=== PATIENT | male | born 1990 | race Caucasian/White ===

== ENCOUNTER 2016-05-06 14:50 | Inpatient (IN) | payer OTHER ==
[~2016-05-06] VITALS: Ht 167.6 cm; Wt 79.4 kg
--- NOTE | 2016-05-06 15:04 | ED AMS/SEIZURE/WEAK/DIZZY ---
History of Present Illness General Chief Complaint: General Adult Stated Complaint: PT HAD A POSSIBLE SEIZURE, AND NEEDS DETOX Source: patient, family Exam Limitations: no limitations Vital Signs & Intake/Output Vital Signs & Intake/Output Vital Signs Date Time Temp Pulse Resp B/P Pulse O2 O2 Flow FiO2 Ox Delivery Rate 05/07 0752 98.2 70 20 130/82 94 Room Air 05/07 0006 98.5 97 20 130/94 95 05/07 0000 98.5 97 20 130/94 05/06 2000 99.0 80 18 128/100 05/06 1947 98.8 82 16 124/79 05/06 1946 98.8 82 16 124/79 98 Room Air 05/06 1853 98.8 82 18 115/60 05/06 1853 98.8 82 18 115/60 98 Room Air 05/06 1804 98.8 93 18 126/75 05/06 1804 98.8 93 18 126/75 98 Room Air 05/06 1624 98.8 88 18 133/79 05/06 1623 98.8 88 18 133/79 98 Room Air 05/06 1530 98.8 111 18 125/66 05/06 1525 98.8 111 18 125/66 98 Room Air 05/06 1500 96.5 134 20 119/75 96 Room Air ED Intake and Output 05/07 0000 05/06 1200 Intake Total 300 Output Total 250 Balance 50 Intake, IV 300 Output, Urine 250 Patient 175 lb Weight Allergies Coded Allergies: No Known Allergies (05/06/16) Reconcile Medications No Known Home Medications Triage Note: PT REQUEST DETOX FROM ETOH, LAST DRINK TODAY, DRANK ABOUT 2-3 SHOTS. PT STATES HE MAY HAVE HAD A SEIZURE EARLIER TODAY. DENIES SI/HI Triage Nurses Notes Reviewed? yes HPI: Patient is a 25 year old male presents requesting alcohol detox and reporting possible alcohol withdrawal seizure. Patient has a history of withdrawal seizures, last seizure approximately 2 weeks ago. Patient was admitted to [facility] for inpatient detox and discharged on April 25. Patient began drinking again April 27. Drinks daily, 7-8 50ml containers of Rizwan Beam daily. Patient was feeling shakey today and nauseous, had not started drinking yet when he went outside for a cigarette then his mother noticed he came inside with his pants and his arms wet. Patient does not recall falling or how he ended up inside. Patient reports 2-3 episodes of vomiting today. Tried to drink 2-3 drinks of Rizwan Beam after this to help with his symptoms. Smokes cannabis 2-3 times a week. Last used cocaine 2-3 weeks ago. Has had visual hallucinations in the past secondary to withdrawal, none currently. Denies headache, fevers, chills, suicidal ideation, illicit drug use today, hematemesis , abdominal pain. (PEDRO HAZEL) Past History Travel History Traveled to [place] past 21 day No Medical History Any Pertinent Medical History? see below for history Neurological: alcohol withdrawal seizures Psychiatric: alcohol dependence, depression Surgical History Surgical History: non-contributory Psychosocial History What is your primary language Lebanese Tobacco Use: Current Daily Use Daily Tobacco Use Amount/Type: => 5 Cigarettes daily ETOH Use: alcoholic Illicit Drug Use: cocaine, marijuana Family History Hx Contributory? No (PEDRO HAZEL) Review of Systems Review of Systems Constitutional: Denies: chills, fever. EENTM: Reports: no symptoms. Respiratory: Denies: cough, short of breath. Cardiovascular: Denies: chest pain. GI: Reports: nausea, vomiting. Denies: abdominal pain. Genitourinary: Reports: no symptoms. Musculoskeletal: Reports: no symptoms. Skin: Reports: no symptoms. Neurological/Psychological: Reports: see HPI. Denies: headache, numbness. Hematologic/Endocrine: Denies: bruising, bleeding. Immunologic/Allergic: Denies: splenectomy. (PEDRO HAZEL) Physical Exam Physical Exam General Appearance: alert, awake Head: atraumatic, normal appearance Eyes: Bilateral: PERRL, EOMI, other (positive nystagmus). Ears, Nose, Throat: normal pharynx, normal ENT inspection, hearing grossly normal, no tongue laceration Neck: normal inspection, supple, full range of motion, no midline tenderness, no paraspinal tenderness Respiratory: normal breath sounds, chest non-tender, no respiratory distress, lungs clear Cardiovascular: tachycardia (regular rhythm, no murmur) Gastrointestinal: soft, non-tender Back: normal inspection, normal range of motion, no vertebral tenderness Extremities: normal range of motion, no signs of trauma Neurologic/Psych: no motor/sensory deficits, awake, alert, cinder block mason II-XII nml as tested Skin: intact, normal color, warm/dry Lymphatic: no anterior cervical karthikeyan Core Measures ACS in differential dx? No CVA/TIA Diagnosis: No Severe Sepsis Present: No Septic Shock Present: No (YOVANI HEARD,PEDRO) Progress Differential Diagnosis: arrythmia, alcohol intoxication, CVA/stroke, drug intoxication, encephalitis, electrolyte imbalance, intracranial Hem., intracranial mass/tumor, seizure disorder, subarachnoid Hem. Plan of Care: Orders Procedure Date/time Status Clear Liquid Diet 05/07 B Active TROPONIN LEVEL 05/07 0600 Complete MAGNESIUM 05/07 0600 Complete HEPATIC FUNCTION PANEL 05/07 0600 Complete CBC WITHOUT DIFFERENTIAL 05/07 0600 Complete BASIC ELECTROLYTES PLUS BUN&CR 05/07 0600 Complete EKG 05/07 0600 Active Seizure Precautions 05/07 0346 Active Precautions 05/07 0345 Active Vital Signs 05/06 2020 Active Teach/Educate 05/06 2020 Active Nutritional Intake, Monitor 05/06 2020 Active Isolation 05/06 2020 Active Intake & Output 05/06 2020 Active Patient Care Conference 05/06 2020 Active Activity/Ambulation 05/06 2020 Active Intake & Output 05/06 1804 Active Admit to inpatient 05/06 1748 Active Lab Add-on Test 05/06 1742 Active Pathway - chart 05/06 1738 Active Pathway - chart 05/06 1737 Active House Staff 05/06 1737 Active Patient Data 05/06 1737 Active Code Status 05/06 1737 Active Telemetry/General Internist 05/06 1555 Complete PHOSPHORUS 05/06 1527 Complete LIPASE 05/06 1527 Complete AMYLASE 05/06 1527 Complete EKG 05/06 1514 Active CIWA 05/06 1513 Active URINE DRUGS OF ABUSE 05/06 1513 Complete MAGNESIUM 05/06 1513 Complete ETHANOL 05/06 1513 Complete COMPREHENSIVE METABOLIC PANEL 05/06 1513 Complete CBC WITHOUT DIFFERENTIAL 05/06 1513 Complete VTE Mechanical Prophylaxis 05/06 UNK Active Current Medications Sig/Megha Start time Last Medication Dose Stop Time Status Admin Lorazepam 2 MG Q8 05/07 1400 AC (Ativan) Folic Acid 1 MG DAILY 05/07 1000 AC (Folic Acid) Thiamine HCl 100 MG DAILY 05/07 1000 AC (Vitamin B1) Omeprazole 40 MG DAILY AC 05/07 0704 AC (Prilosec) Lorazepam 0 Q1P PRN 05/06 1900 AC (Ativan) Acetaminophen 650 MG Q6P PRN 05/06 1745 AC (Tylenol) Oxycodone HCl 10 MG Q6P PRN 05/06 1745 AC (Roxicodone) Oxycodone/ 1 TAB Q6P PRN 05/06 1745 AC Acetaminophen (Percocet) Laboratory Tests 05/07/16 0630: Anion Gap 10, Estimated GFR > 60, BUN/Creatinine Ratio 8.6, Magnesium 1.7, Total Bilirubin 1.5 H, Direct Bilirubin 0.5 H, AST 229 H, ALT 209 H, Alkaline Phosphatase 78, Troponin I < 0.01, Total Protein 6.7, Albumin 3.6, CBC w Diff NO MAN DIFF REQ, RBC 5.04, MCV 89.8, MCH 30.0, RDW 14.2, MPV 8.3, Gran % 62.7, Lymphocytes % 26.3, Monocytes % 7.8, Eosinophils % 2.8, Basophils % 0.4, Absolute Granulocytes 4.9, Absolute Lymphocytes 2.1, Absolute Monocytes 0.6, Absolute Eosinophils 0.2, Absolute Basophils 0, PUBS MCHC 33.4 05/06/16 1646: Urine Opiates Screen < 100.00, Methadone Screen < 40, Barbiturate Screen < 60, Ur Phencyclidine Scrn < 6.00, Amphetamines Screen < 100, U Benzodiazepines Scrn 141, Urine Cocaine Screen 66, Urine Cannabis Screen 16.20 05/06/16 1527: Anion Gap 17 H, Estimated GFR > 60, BUN/Creatinine Ratio 10.0, Glucose 170 H, Calcium 9.6, Phosphorus 1.8 L, Magnesium 1.7, Total Bilirubin 1.7 H, AST 212 H, ALT 223 H, Alkaline Phosphatase 97, Total Protein 7.8, Albumin 4.5, Globulin 3.3, Albumin/Globulin Ratio 1.4, Amylase 56, Lipase 228, CBC w Diff NO MAN DIFF REQ, RBC 5.65, MCV 88.4, MCH 30.1, RDW 13.9, MPV 8.1, Gran % 77.5 H, Lymphocytes % 15.8 L, Monocytes % 5.3, Eosinophils % 1.0, Basophils % 0.4, Absolute Granulocytes 9.0 H, Absolute Lymphocytes 1.8, Absolute Monocytes 0.6, Absolute Eosinophils 0.1, Absolute Basophils 0, PUBS MCHC 34.1, Serum Alcohol 16.0 05/06/2016 3:53:29 PM: Discussed with and evaluated by Dr. Pepper. Heart rate improved to 70s and sinus rhythm after 2 mg by mouth and 2 mg IV of Ativan. Patient resting comfortably. 05/06/2016 4:51:21 PM: Patient resting more comfortably. Heart rate intermittently increasing to the 110s in sinus rhythm. Additional Ativan ordered. Patient ambulatory to the bathroom with no neurologic deficits noted. Hospitalist paged. 05/06/2016 4:57:28 PM: Discussed with Dr. Liriano: will admit patient. (PEDRO HAZEL) Initial ED EKG: sinus rhythm at 96 bpm Left axis deviation, T-wave flattening diffusely, no previous EKG for comparison Rhythm Strip: normal sinus rhythm (PEDRO HAZEL) Departure Departure Time of Disposition: 1656 Condition: Stable Departure Forms: Customer Survey General Discharge Information Prescriptions: Current Visit Scripts No Known Home Medications Admission Note Spoke With: VINI LIRIANO MD Documentation of Exam: Documentation of any treatments & extenuating circumstances including Concerns Regarding Discharge (functional status, medication knowledge or non-compliance, living conditions, etc.) that warrant an admission rather than observation: Patient had what appears to be an alcohol withdrawal seizure today, is at severe risk for further seizures and delirium tremens. Patient will require monitoring , Ativan, social work and psychiatry consultation. (PEDRO HAZEL) Departure Disposition: STILL A PATIENT Clinical Impression Primary Impression: Alcohol withdrawal seizure Secondary Impressions: Alcohol dependence with withdrawal PA/ENVIRONMENTAL PROTECTION SPECIALIST Co-Sign Statement Statement: ED Attending supervision documentation- [X] I saw and evaluated the patient. I have also reviewed all the pertinent lab results and diagnostic results. I agree with the findings and the plan of care as documented in the PA's/ENVIRONMENTAL PROTECTION SPECIALIST's documentation. [X] I have reviewed the ED Record and agree with the PA's/ENVIRONMENTAL PROTECTION SPECIALIST's documentation. [] Additions or exceptions (if any) to the PAs/ENVIRONMENTAL PROTECTION SPECIALIST's note and plan are summarized below: [] (SANTA VIVEROS,CATHLEEN) Critical Care Note Critical Care Note Critical Care Time: 30-74 min (PEDRO HAZEL)
[2016-05-06 15:30] VITALS: BP 125/66
[2016-05-06 15:36] LABS: ABSOLUTE BASOPHIL COUNT 0 /CUMM (0.0-0.2); ABSOLUTE EOSINOPHIL COUNT 0.1 /CUMM (0.0-0.7); ABSOLUTE LYMPH COUNT 1.8 /CUMM (1.2-3.4); ABSOLUTE MONOCYTE COUNT 0.6 /CUMM (0.10-0.60); BASOPHIL % 0.4 % (0.0-2.0); GRANULOCYTE % 77.5 % (42.2-75.2); MEAN CORPUSCULAR HGB 30.1 PG (27.0-31.0); MEAN CORPUSCULAR HGB CONC 34.1 G/DL (33.0-37.0); MEAN CORPUSCULAR VOLUME 88.4 FL (80.0-94.0); MEAN PLATELET VOLUME 8.1 FL (7.4-10.4); PLATELET COUNT 223 /CUMM (130-400); RBC DISTRIBUTION WIDTH 13.9 % (11.5-14.5); RED BLOOD CELL CT 5.65 /CUMM (4.70-6.10); WHITE BLOOD CELL COUNT 11.6 /CUMM (4.8-10.8)
[2016-05-06 16:24] VITALS: BP 133/79
--- NOTE | 2016-05-06 17:13 | History & Physical ---
AMBER VIVEROS,LISA 05/06/16 1713: General Information and HPI MD Statement: I have seen and personally examined MADAY PIÑA and documented this H& P. The patient is a 25 year old M who presented with a patient stated chief complaint of [alcohol withdrawal seizure]. Source of Information: patient, family Exam Limitations: no limitations History of Present Illness: Patient is a 25-year-old male with a PMH significant for a recent episode of alcohol withdrawal seizure, who is brought to the ED by his parents with a suspicion for another episode of seizure due to alcohol withdrawal. His mother found him outside their house this morning looking yeager, disoriented, wet in the pants, a few minutes after he had gone outside to smoke cigarette. It took him 5 -10 minutes to regain consciousness. Patient himself does not completely remember the events but reports seeing flashes of light and that he fell down on his knees. Denies head trauma or any headache, reported dizziness at that time that is currently resolved. Denies hallucinations. Patient had come to spend the night with his parents stating that 'he wants to get better' as the father said. Patient has been drinking 6-8 bottles of 50 mL Rizwan Beam daily for about 13-14 months. 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 On April 18 patient was found on the ground by his boss and was taken to [facility], he spent 5-6 days for alcohol detox, however started back on drinking around 6 days after discharge. 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 About a week ago patient was found at work in an unusual state with slurred speech, shaking, with fluttering eyes. His mother reports patient had similar symptoms today. Patient also reports nausea, vomiting, with an episode of possible blood in the vomit. He has also been having diarrhea (watery stool), nonbloody, almost all the time. Denies abdominal pain. Reports dark urine recently with frequency. Denies chest pain or palpitation or SOB. Allergies/Medications Allergies: Coded Allergies: No Known Allergies (05/06/16) Home Med list No Known Home Medications Past History Travel History Traveled to [place] past 21 day No Medical History Neurological: alcohol withdrawal seizures EENT: NONE Cardiovascular: NONE Respiratory: NONE Gastrointestinal: NONE Hepatic: NONE Renal: NONE Musculoskeletal: NONE Psychiatric: alcohol dependence, depression, ADD at 20 years of age, currently not on treatment. Endocrine: NONE Surgical History Surgical History: non-contributory Past Family/Social History Psychosocial History Smoking Status: Current Everyday Smoker (1/4 to 1 pack/d for 10 years) ETOH Use: alcoholic Illicit Drug Use: cocaine, marijuana Functional Ability ADLs Independent: dressing, eating, toileting, bathing. Ambulation: independent IADLs Independent: shopping, housework, finances, food prep, telephone, transportation , medication admin. Review of Systems Review of Systems Constitutional: Denies: chills, fever, weakness. EENTM: Reports: nasal congestion. Denies: blurred vision, hearing changes, throat pain. Cardiovascular: Denies: chest pain, palpitations, peripheral edema, syncope. Respiratory: Denies: cough, sputum production, stridor, wheezing. GI: Reports: diarrhea, nausea, vomiting. Denies: abdominal pain, constipation, melena, bloody stool, changes in stool. Genitourinary: Reports: frequency. Denies: discharge, dysuria, hematuria. Musculoskeletal: Reports: no symptoms. Skin: Reports: lesions ( chuck on left lower back). Neurological/Psychological: Denies: anxiety, ataxia, headache, numbness, paresthesia, tingling, tremors, weakness. Hematologic/Endocrine: Denies: bruising, bleeding, polyuria, polydipsia. Exam & Diagnostic Data Last 24 Hrs of Vital Signs/I&O Vital Signs Date Time Temp Pulse Resp B/P Pulse O2 O2 Flow FiO2 Ox Delivery Rate 05/06 1804 98.8 93 18 126/75 05/06 1804 98.8 93 18 126/75 98 Room Air 05/06 1624 98.8 88 18 133/79 05/06 1623 98.8 88 18 133/79 98 Room Air 05/06 1530 98.8 111 18 125/66 05/06 1525 98.8 111 18 125/66 98 Room Air 05/06 1500 96.5 134 20 119/75 96 Room Air Intake & Output 05/06 1600 05/06 0800 05/06 0000 Intake Total Output Total Balance Patient 79.379 kg Weight Physical Exam General Appearance Alert, Oriented X3, Cooperative, No Acute Distress Skin pigmented skin lesions noted on the left lower back, not changed in size, asymptomatic. HEENT Atraumatic, PERRLA, EOMI, Mucous Membr. moist/pink Neck Supple Cardiovascular Regular Rate, Normal S1, Normal S2, No Murmurs Lungs Clear to Auscultation, Normal Air Movement Abdomen Normal Bowel Sounds, Soft, No Tenderness, No Hepatospenomegaly Neurological Normal Speech, Strength at 5/5 X4 Ext, Normal Tone, Sensation Intact, Cranial Nerves 3-12 NL Extremities No Clubbing, No Cyanosis, No Edema, Normal Pulses, No Tenderness/ Swelling Vascular Normal Pulses, Pulses Symmetrical Last 24 Hrs of Labs/Nikos: Laboratory Tests 05/06/16 1646: Urine Opiates Screen < 100.00, Methadone Screen < 40, Barbiturate Screen < 60, Ur Phencyclidine Scrn < 6.00, Amphetamines Screen < 100, U Benzodiazepines Scrn 141, Urine Cocaine Screen 66, Urine Cannabis Screen 16.20 05/06/16 1527: Anion Gap 17 H, Estimated GFR > 60, BUN/Creatinine Ratio 10.0, Glucose 170 H, Calcium 9.6, Phosphorus 1.8 L, Magnesium 1.7, Total Bilirubin 1.7 H, AST 212 H, ALT 223 H, Alkaline Phosphatase 97, Total Protein 7.8, Albumin 4.5, Globulin 3.3, Albumin/Globulin Ratio 1.4, Amylase 56, Lipase 228, CBC w Diff NO MAN DIFF REQ, RBC 5.65, MCV 88.4, MCH 30.1, RDW 13.9, MPV 8.1, Gran % 77.5 H, Lymphocytes % 15.8 L, Monocytes % 5.3, Eosinophils % 1.0, Basophils % 0.4, Absolute Granulocytes 9.0 H, Absolute Lymphocytes 1.8, Absolute Monocytes 0.6, Absolute Eosinophils 0.1, Absolute Basophils 0, PUBS MCHC 34.1, Serum Alcohol 16.0 Assessment/Plan Assessment: Patient is a 25 year old male with PMH of alcohol abuse and alcohol withdrawal seizures, brought in by his parents after an episode of a seizure-like activity, requesting alcohol detox and also asking to help him quit alcohol abuse. Vital signs in the ED revealed tachycardia with heart rate of 134 on arrival, which came down to 90s on admission. EKG revealed normal sinus rhythm, rate of 96, NC 156, QTC 460, there is flattening of the T-wave on V1, T-wave inversion on V3 and V4, no ST segment elevation or depression. Patient received IV fluids, IV folic acid, thiamine and multivitamins, lorazepam in the ED. Problem list and plan: Alcohol withdrawal and alcohol withdrawal possible seizure Patient is alert and oriented, neurology exam is unremarkable. He has mild tremor during the exam with no asterixis. * IV Ativan per CIWA * Continue IV fluids * Continue IV folic acid thiamine and multivitamins * Psychiatric consult in a.m. * Repeat CBC and BEP in a.m. Pain * PO Tylenol for mild pain, Percocet for moderate pain, oxycodone for severe pain. Regular diet DVT px with SC lovenox FC As Ranked By This Provider Problem List: 1. Alcohol withdrawal seizure 2. Alcohol dependence with withdrawal Core Measures/Miscellaneous Acute Coronary Syndrome ACS Diagnosis: No Cerebrovascular Accident CVA/TIA Diagnosis: No Congestive Heart Failure CHF Diagnosis: No Venous Thromboembolism VTE Risk Factors: Acute medical illness, Obesity VTE Prophylaxis Ordered Inpt: Pharm- Lovenox No Mech VTE prophylaxis d/t: No contraindications No VTE Pharm Prophylaxis d/t: No contraindications VTE Diagnosis: No VTE Type: NONE VTE Confirmed by (Test): NONE Severe Sepsis Severe Sepsis Present: Yes Septic Shock Septic Shock Present: Yes Miscellaneous Documentation Attending Case Discussed With: VINI LIRIANO MD Primary Care Physician: PATIENT HAS NO PRIMARY CARE DR Patient sees these Specialists None Level of Patient Care: General Medicine HANSAMANUELDarrenFRANCISCO 05/06/16 1811: Resident Review Statement Resident Statement: examined this patient, discussed with internet and e business project manager, agreed with internet and e business project manager, discussed with family, reviewed EMR data (avail), discussed with case mgmt, reviewed images Other Findings: Mr. Piña is a pleasant 25-year-old gentleman with a PMH of EtOH abuse for multiple years, occasional marijuana and cocaine who was brought in by family for detox. He was seen at [facility] approximately 2 weeks ago and admitted for 5 day duration for cold detox, discharged home but unfortunately relapsed on April 27 and has since continued drinking 7-8 bottles of 50 mL Rizwan Beam daily he also endorses intermittent cocaine use was recently 3 weeks ago, regular marijuana use 2-3 times a week. His parents report an episode of confusion prior to coming into the ER when he walked outside to smoke a cigarette and was alert and noted to have fallen down and possibly wet his pants. He exhibited an episode of transient confusion/ delirium prompted them to bring him into the ED for evaluation. He denied any visual, auditory or tactile hallucinations but was unsure as to whether he had a seizure. VS: BP 119/75, HR 134, RR 20, SPO2 96% on RA, T 96.5 PE: AAO 3, no acute distress. Lungs CTA BL. RRR, normal S1/S2. Normal bowel sounds with no tenderness to palpation. No focal neurologic deficits. Pertinent labs: WBC 11.6, H&H 17/50.0, platelets 223, sodium 135, potassium 3.6, BUN/CR 8/0.8 Phosphorus: 1.8 AST/ALT 212/223 Lipase 228, amylase 56 Problem list: 1. Alcohol withdrawal with possible seizure 2. Cocaine abuse 3. Hypophosphatemia 4. Hypokalemia 5. Transaminitis Plan: * Admit to general medicine floor * Ativan per [facility] protocol, thiamine and folic acid * Neurochecks every shift, seizure precautions * Clear liquid diet and advance as tolerated * GI prophylaxis: Omeprazole 40 mg daily * Nicotine patch tobacco dependence * Repleted phosphate and follow-up in the a.m. * DVT prophylaxis: Lovenox 40 mg subcutaneous * CODE STATUS: Full code AM team: Please obtain previous EEG records from [facility] Advance diet as tolerated SARAH SOSA 05/06/16 2354: Attending MD Review Statement Attending Statement Attending MD Statement: examined this patient, discuss w/resident/PA/MUFFLER INSTALLER, agreed w/resident/PA/MUFFLER INSTALLER, discussed with family, reviewed EMR data (avail), reviewed images, amended to note Attending Assessment/Plan: CC: Seizure PMH : Alcoholism , substance abuse Patient came to ER with parents requesting alcohol detox. They also report unwitnessed possible seizure. Patient has history of withdrawal seizures, last seizure approximately 2 weeks ago, admitted and [facility] for detox, investigated with EEG CT scan, discharged on April 25. Patient started drinking on April 27 again. He Drinks daily, 7-8 50ml containers of Rizwan Beam daily. Complaints of feeling shakey today and nauseous. He tried one drink in the morning for symptom relief. He went outside to smoke and came back confused with elbows and knees drenched. So mother thinks that he may have had seizures, his eyes flickered for some time when he was confuse. Patient does not recall a the incidence. He Smokes cannabis 2-3 times a week And Last used cocaine 2-3 weeks ago. Otherwise complete ROS negative Vitals: Afebrile, mildly tachycardic at presentation currently stable, RRR, blood pressure, O2 saturation in acceptable range. On examination a O 3, no anxiety, no tremors, no focal neurological deficit, no evidence of tongue bite, neck supple, no JVD, no lymphadenopathy, mucosa moist, no obvious bruises or inflammation. Abdomen soft, NT, ND, bowel sounds present. CVS: S1-S2, RRR. RS: Clear to auscultate bilaterally. Labs: CB C, BMP, anion gap 17, unremarkable, glucose 170, phosphorus 1.8, bilirubin 1.7, AST 212, ALT 223, dopamine 4.5, lipase 224, U tox positive for benzodiazepines and cocaine marijuana alcohol level 16 EKG: NSR A and P #1 alcoholism: Continue banana bag, when necessary and scheduled Ativan according to CIWA score. Consult regarding cessation. Family wants to send him inpatient rehabilitation, they're looking and options. #2 unwitnessed suspected seizure: Patient underwent EEG monitoring in [facility], please obtain records, if not impossible then obtain EEG, most likely alcohol related seizure does not require treatment at this point. Seizure precautions, clear liquid diet #3 transaminitis: Even though AST is not higher than ALT, appears to be alcohol related, mild elevation bilirubin, repeat LFTs in a.m. #4 patient had history of cocaine : U tox is positive, repeat troponin and EKG in 6 hours.
[2016-05-06 18:04] VITALS: BP 126/75
[2016-05-06 18:53] VITALS: BP 115/60
[2016-05-06 19:47] VITALS: BP 124/79
[2016-05-06 20:00] VITALS: BP 128/100
--- NOTE | 2016-05-06 23:56 | Admission Certification ---
Admission Certification Certification Statement - As attending physician, I certify that at the time of - admission, based on clinical presentation, severity of - symptoms, need for further diagnostic testing and - therapeutic interventions, and risk of adverse outcomes - without in-hospital treatment, in my clinical assessment, - this patient requires an acute hospital stay for a minimum - of two nights or longer. I have also considered psychsocial - factors such as support system, advanced age, financial - issues, cognitive issues, and failed out-patient treatments, - past re-admission history, safety of patient, and lack of - compliance as applicable. Specific rationale supporting this admission is: Alcoholism, alcohol related seizures
[2016-05-07] VITALS: BP 130/94
[2016-05-07 00:06] VITALS: BP 130/94
[2016-05-07 07:52] VITALS: BP 130/82
--- NOTE | 2016-05-07 07:54 | PN- Housestaff ---
AMBER VIVEROS,[facility] 05/07/16 0754: Subjective Follow-up For: alcohol withdrawal Subjective: Patient is alert and awake, in no distress, reports no pain, dizziness, SOB, chest pain, abdominal pain or palpitations. Review of Systems Constitutional: Denies: chills, fever, malaise, weakness. EENTM: Reports: no symptoms. Cardiovascular: Reports: no symptoms. Respiratory: Reports: no symptoms. Gastrointestinal: Reports: no symptoms. Genitourinary: Reports: no symptoms. Musculoskeletal: Reports: no symptoms. Skin: Reports: no symptoms. Objective Last 24 Hrs of Vital Signs/I&O Vital Signs Date Time Temp Pulse Resp B/P Pulse O2 O2 Flow FiO2 Ox Delivery Rate 05/07 1600 97.8 97 18 124/80 05/07 0752 98.2 70 20 130/82 94 Room Air 05/07 0006 98.5 97 20 130/94 95 05/07 0000 98.5 97 20 130/94 05/06 2000 99.0 80 18 128/100 05/06 1947 98.8 82 16 124/79 05/06 1946 98.8 82 16 124/79 98 Room Air 05/06 1853 98.8 82 18 115/60 05/06 1853 98.8 82 18 115/60 98 Room Air 05/06 1804 98.8 93 18 126/75 05/06 1804 98.8 93 18 126/75 98 Room Air Intake & Output 05/07 1600 05/07 0800 05/07 0000 Intake Total 1600 250 300 Output Total 1200 250 Balance 400 250 50 Intake, IV 250 300 Intake, Oral 1600 Output, Urine 1200 250 Patient 79.379 kg Weight Physical Exam General Appearance: Alert, Oriented X3, Cooperative, No Acute Distress Skin: No Rashes HEENT: Atraumatic, EOMI Neck: Supple Cardiovascular: Regular Rate, Normal S1, Normal S2, No Murmurs Lungs: Clear to Auscultation, Normal Air Movement Abdomen: Normal Bowel Sounds, Soft, No Tenderness Extremities: No Clubbing, No Cyanosis, No Edema Vascular: Pulses Symmetrical Last 24 Hrs of Lab/Nikos Results Last 24 Hrs of Labs/Mics: Laboratory Tests 05/07/16 0630: Anion Gap 10, Estimated GFR > 60, BUN/Creatinine Ratio 8.6, Phosphorus 5.0 H, Magnesium 1.7, Total Bilirubin 1.5 H, Direct Bilirubin 0.5 H, AST 229 H, ALT 209 H, Alkaline Phosphatase 78, Troponin I < 0.01, Total Protein 6.7, Albumin 3.6, CBC w Diff NO MAN DIFF REQ, RBC 5.04, MCV 89.8, MCH 30.0, RDW 14.2, MPV 8.3 , Gran % 62.7, Lymphocytes % 26.3, Monocytes % 7.8, Eosinophils % 2.8, Basophils % 0.4, Absolute Granulocytes 4.9, Absolute Lymphocytes 2.1, Absolute Monocytes 0.6, Absolute Eosinophils 0.2, Absolute Basophils 0, PUBS MCHC 33.4 Assessment/Plan Assessment: Patient is a 25 year old male with PMH of alcohol abuse and alcohol withdrawal seizures, brought in by his parents after an episode of a seizure-like activity, requesting alcohol detox and also asking to help him quit alcohol abuse. Vital signs in the ED revealed tachycardia with heart rate of 134 on arrival, which came down to 90s on admission. EKG revealed normal sinus rhythm, rate of 96, AR 156, QTC 460, there is flattening of the T-wave on V1, T-wave inversion on V3 and V4, no ST segment elevation or depression. Patient received IV fluids, IV folic acid, thiamine and multivitamins, lorazepam in the ED. Problem list and plan: Alcohol withdrawal and alcohol withdrawal possible seizure Patient is alert and oriented, neurology exam is unremarkable. He has mild tremor during the exam with no asterixis. * continue PO Ativan per CIWA * DC IV fluids * Continue IV folic acid thiamine and multivitamins * social work consult on Monday * Repeat CBC and BEP in a.m. * will obtain records of previous admission from [facility] Pain * PO Tylenol for mild pain, Percocet for moderate pain, oxycodone for severe pain. Regular diet DVT px with SC lovenox FC Problem List: 1. Alcohol withdrawal seizure 2. Alcohol dependence with withdrawal Pain Ratin Pain Location: none Pain Goal: Pain 4 or less Pain Plan: mild pp Tomorrow's Labs & Rationales: cbc, BEP, hepatic panel (leukocytosis, monitor electrolytes, transaminitis) CYNTHIA MARRUFO MD 05/07/16 1006: Attending MD Review Statement Attending Statement Attending MD Statement: examined this patient, discuss w/resident/PA/LEVI MAKER, agreed w/resident/PA/LEVI MAKER, reviewed EMR data (avail), discussed with nursing, discussed with case mgmt, amended to note Attending Assessment/Plan: Patient seen and examined. Resting comfortably and not in acute distress. No issues overnight reported by nursing staff. His electrolytes 3. He is not agitated. He is actually quite pleasant. He has no tremors. On examination he has no significant alcohol disease. He denies chest pain. Denies palpitations. Denies shortness of breath. His CIWA has not been elevated since admission. His alcohol level was low on admission. He was brought in for evaluation due to concerns that he had a seizure Recommendations: -Continue current CIWA protocol today. If patient does not require when necessary dose of Ativan then taper his standing dose of Ativan by 0.5 mg per dose. -Continue seizure precautions. Obtain EEG report from [facility]. -His transaminitis is likely related to EtOH. Follow-up records from [facility] regarding his baseline LFTs and any liver imaging done at that time. -networker consultation on Monday for referral to outpatient alcohol rehabilitation
[2016-05-07 08:25] LABS: ABSOLUTE BASOPHIL COUNT 0 /CUMM (0.0-0.2); ABSOLUTE EOSINOPHIL COUNT 0.2 /CUMM (0.0-0.7); ABSOLUTE LYMPH COUNT 2.1 /CUMM (1.2-3.4); ABSOLUTE MONOCYTE COUNT 0.6 /CUMM (0.10-0.60); GRANULOCYTE % 62.7 % (42.2-75.2); MEAN PLATELET VOLUME 8.3 FL (7.4-10.4); RBC DISTRIBUTION WIDTH 14.2 % (11.5-14.5)
[2016-05-07 09:15] LABS: ABSOLUTE GRANULOCYTE CT 4.9 /CUMM (1.4-6.5); BASOPHIL % 0.4 % (0.0-2.0); EOSINOPHIL % 2.8 % (0-5); HEMATOCRIT 45.3 % (42-52); MEAN CORPUSCULAR HGB CONC 33.4 G/DL (33.0-37.0); MEAN CORPUSCULAR VOLUME 89.8 FL (80.0-94.0); PLATELET COUNT 161 /CUMM (130-400); RED BLOOD CELL CT 5.04 /CUMM (4.70-6.10); WHITE BLOOD CELL COUNT 7.8 /CUMM (4.8-10.8)
[2016-05-07 16:00] VITALS: BP 124/80
[2016-05-07 23:54] VITALS: BP 156/112
[2016-05-08 00:02] VITALS: BP 135/110
[2016-05-08 01:17] VITALS: BP 150/110
[2016-05-08 03:10] VITALS: BP 138/80
[2016-05-08 08:41] LABS: ABSOLUTE BASOPHIL COUNT 0.1 /CUMM (0.0-0.2); ABSOLUTE EOSINOPHIL COUNT 0.3 /CUMM (0.0-0.7); ABSOLUTE GRANULOCYTE CT 5.3 /CUMM (1.4-6.5); ABSOLUTE LYMPH COUNT 2.7 /CUMM (1.2-3.4); ABSOLUTE MONOCYTE COUNT 0.7 /CUMM (0.10-0.60); BASOPHIL % 0.6 % (0.0-2.0); EOSINOPHIL % 3.1 % (0-5); GRANULOCYTE % 59.2 % (42.2-75.2); HEMATOCRIT 48.8 % (42-52); MEAN CORPUSCULAR HGB 29.7 PG (27.0-31.0); MEAN CORPUSCULAR HGB CONC 32.8 G/DL (33.0-37.0); MEAN CORPUSCULAR VOLUME 90.6 FL (80.0-94.0); MEAN PLATELET VOLUME 8.5 FL (7.4-10.4); PLATELET COUNT 169 /CUMM (130-400); RBC DISTRIBUTION WIDTH 14.3 % (11.5-14.5); RED BLOOD CELL CT 5.39 /CUMM (4.70-6.10)
[2016-05-08 09:15] VITALS: BP 130/82
--- NOTE | 2016-05-08 09:38 | PN- Housestaff ---
CHUCK VIVEROS,[facility] 05/08/16 0938: Subjective Follow-up For: Alcohol detox Subjective: Patient is seen and examined at bedside. Patient was in deep sleep but was easily awoken by verbal stimuli. Patient states "I am feeling very well". He does not endorse any acute complaints of nightmares, weird dreams, hallucination , tremors, shakiness, nausea, vomiting, fever, chills abdominal pain, chest pain , palpitation or abdominal pain. No acute overnight event reported by nursing staff. Review of Systems Constitutional: Reports: no symptoms. Objective Last 24 Hrs of Vital Signs/I&O Vital Signs Date Time Temp Pulse Resp B/P Pulse O2 O2 Flow FiO2 Ox Delivery Rate 05/08 1649 97.8 90 21 152/94 97 Room Air 05/08 0915 97.6 80 20 130/82 97 Room Air 05/08 0310 138/80 05/08 0117 86 150/110 05/08 0002 98.0 89 20 135/110 Intake & Output 05/08 1600 05/08 0800 05/08 0000 Intake Total 3362 602 8971 Output Total 500 Balance 563 978 9555 Intake, IV 20 Intake, Oral 7512 161 2554 Output, Urine 500 Physical Exam General Appearance: Alert, Oriented X3, Cooperative, obese Skin: No Significant Lesion Other Physical Findings: Skin: No Rashes HEENT: Atraumatic, EOMI Neck: Supple Cardiovascular: Regular Rate, Normal S1, Normal S2, No Murmurs Lungs: Clear to Auscultation, Normal Air Movement Abdomen: Normal Bowel Sounds, Soft, No Tenderness Extremities: No Clubbing, No Cyanosis, No Edema Vascular: Pulses Symmetrical Assessment/Plan Assessment: Patient is a 25 year old male with PMH of alcohol abuse and alcohol withdrawal seizures, brought in by his parents after an episode of a seizure-like activity, requesting alcohol detox and also asking to help him quit alcohol abuse. Vital signs in the ED revealed tachycardia with heart rate of 134 on arrival, which came down to 90s on admission. EKG revealed normal sinus rhythm, rate of 96, MS 156, QTC 460, there is flattening of the T-wave on V1, T-wave inversion on V3 and V4, no ST segment elevation or depression. Patient received IV fluids, IV folic acid, thiamine and multivitamins, lorazepam in the ED. Problem list and plan: Alcohol withdrawal and alcohol withdrawal possible seizure Patient is alert and oriented, neurology exam is unremarkable. He has mild tremor during the exam with no asterixis. * continue PO Ativan per CIWA taper lorazepam to 1.5 mg every 8 hours * DC IV fluids * Continue IV folic acid thiamine and multivitamins * social work consult on Monday * Repeat CBC and BEP in a.m. * will obtain records of previous admission from [facility] Pain * PO Tylenol for mild pain, Percocet for moderate pain, oxycodone for severe pain. Regular diet DVT px with SC lovenox FC Problem List: 1. Alcohol dependence with withdrawal 2. Alcohol withdrawal seizure Pain Ratin Pain Location: None Pain Goal: Remain pain free Pain Plan: Per pain pathway Tomorrow's Labs & Rationales: BEP-recent seizure episode, monitor electrolytes YARON VIVEROS,CYNTHIA 05/08/16 1112: Attending MD Review Statement Attending Statement Attending MD Statement: examined this patient, discuss w/resident/PA/MOLDER SHOULDER PAD, agreed w/resident/PA/MOLDER SHOULDER PAD, reviewed EMR data (avail), discussed with nursing, amended to note Attending Assessment/Plan: Patient seen and examined. Resting comfortably and not in acute distress. Alert and oriented 3. Ambulating freely around the unit. Reports good appetite. Very jovial spirits this morning. He did not require any when necessary Ativan all through yesterday however around midnight and 3 AM he received a total of 2 mg. On examination he is not tremulous. He is not agitated. At this point we can taper his standing dose of Ativan to 1.5 mg orally every 8 hours. Follow-up records from [facility] regarding workup for his hepatitis and liver imaging as he was admitted there recently.
[2016-05-08 16:49] VITALS: BP 152/94
[2016-05-09] VITALS (8 sets, daily range): BP systolic 128–140; BP diastolic 68–100
--- NOTE | 2016-05-09 07:07 | PN- Housestaff ---
See Addendum Subjective Follow-up For: Alcohol detox Subjective: I saw and examined the patient this AM, he is in bed, sitting, eating breakfast, has no complaints. No N/V or abdominal pain, has been sleeping well. Patient is willing to talk to a social work msw for options on outpatient rehab. Review of Systems Constitutional: Denies: chills, fever, weakness. EENTM: Reports: no symptoms. Cardiovascular: Reports: no symptoms. Respiratory: Reports: no symptoms. Gastrointestinal: Reports: no symptoms. Genitourinary: Reports: no symptoms. Musculoskeletal: Reports: no symptoms. Objective Last 24 Hrs of Vital Signs/I&O Vital Signs Date Time Temp Pulse Resp B/P Pulse O2 O2 Flow FiO2 Ox Delivery Rate 05/09 0851 97.4 70 20 130/70 97 Room Air 05/09 0022 98.6 88 20 140/100 96 05/08 1649 97.8 90 21 152/94 97 Room Air Intake & Output 05/09 1600 05/09 0800 05/09 0000 Intake Total 240 500 Output Total Balance 240 500 Intake, Oral 240 500 Physical Exam General Appearance: Alert, Oriented X3, Cooperative, No Acute Distress Skin: No Rashes, No Breakdown, No Significant Lesion HEENT: Atraumatic, EOMI Neck: Supple Cardiovascular: Regular Rate, Normal S1, Normal S2, No Murmurs Lungs: Clear to Auscultation, Normal Air Movement Abdomen: Normal Bowel Sounds, Soft, No Tenderness Neurological: Normal Speech, Normal Tone Extremities: No Edema, Normal Pulses, No Tenderness/Swelling Vascular: Normal Pulses, Pulses Symmetrical Current Medications: Current Medications Sig/Megha Start time Last Medication Dose Route Stop Time Status Admin Acetaminophen 650 MG Q6P PRN 05/06 1745 AC PO Enoxaparin Sodium 40 MG DAILY@1800 05/06 1827 AC 05/08 SC 1720 Folic Acid 1 MG DAILY 05/07 1000 AC 05/09 PO 0952 Lorazepam 1 MG Q12 05/09 1000 AC 05/09 PO 0957 Lorazepam 0.5 MG .STK-MED ONE 05/08 1410 DC PO 05/08 1411 Lorazepam 1.5 MG Q8 05/08 1400 DC 05/09 PO 0600 Lorazepam 2 MG Q8 05/07 1400 DC 05/08 PO 0620 Lorazepam 0 Q1P PRN 05/06 1900 AC 05/08 IV 0317 Nicotine 21 MG DAILY 05/06 1952 05/09 TOP 0951 Omeprazole 40 MG DAILY 05/07 0704 05/09 PO 0559 Oxycodone HCl 10 MG Q6P PRN 05/06 1745 AC PO Oxycodone/ 1 TAB Q6P PRN 05/06 1745 AC Acetaminophen PO Patient Medication 1 UNIT ONE NR 05/09 1000 Teaching ED 05/09 1600 Thiamine HCl 100 MG DAILY 05/07 1000 AC 05/09 PO 0952 Last 24 Hrs of Lab/Nikos Results Last 24 Hrs of Labs/Mics: Laboratory Tests 05/09/16 0705: Anion Gap 10, Estimated GFR > 60, BUN/Creatinine Ratio 12.5, Total Bilirubin 0.9 , Direct Bilirubin 0.4, AST 231 H, ALT 274 H, Alkaline Phosphatase 72, Total Protein 6.9, Albumin 3.8, CBC w Diff NO MAN DIFF REQ, RBC 5.28, MCV 89.7, MCH 30.2, RDW 14.8 H, MPV 8.3, Gran % 64.8, Lymphocytes % 23.3, Monocytes % 9.0, Eosinophils % 2.4, Basophils % 0.5, Absolute Granulocytes 6.5, Absolute Lymphocytes 2.3, Absolute Monocytes 0.9 H, Absolute Eosinophils 0.2, Absolute Basophils 0, PUBS MCHC 33.7 Assessment/Plan Assessment: Patient is a 25 year old male with PMH of alcohol abuse and alcohol withdrawal seizures, brought in by his parents after an episode of a seizure-like activity, requesting alcohol detox and also asking to help him quit alcohol abuse. Vital signs in the ED revealed tachycardia with heart rate of 134 on arrival, which came down to 90s on admission. EKG revealed normal sinus rhythm, rate of 96, PA 156, QTC 460, there is flattening of the T-wave on V1, T-wave inversion on V3 and V4, no ST segment elevation or depression. Patient received IV fluids, IV folic acid, thiamine and multivitamins, lorazepam in the ED. Problem list and plan: Alcohol withdrawal and alcohol withdrawal possible seizure Patient is alert and oriented, neurology exam is unremarkable. He has mild tremor during the exam with no asterixis. * continue PO Ativan per CIWA taper lorazepam decreased to 1 mg every 12 hours * DC'd IV fluids * Continue PO folic acid thiamine and multivitamins * social work consult * Repeat LFT in a.m. * will try again to obtain records of previous admission from [facility] Pain * PO Tylenol for mild pain, Percocet for moderate pain, oxycodone for severe pain. Regular diet DVT px with SC lovenox FC Problem List: 1. Alcohol withdrawal seizure 2. Alcohol dependence with withdrawal Pain Ratin Pain Location: no pain Pain Goal: Pain 4 or less Pain Plan: acetaminophen for mild to moderate pain oxycodone for severe pain Tomorrow's Labs & Rationales: LFT (transaminitis)
[2016-05-09 08:28] LABS: ABSOLUTE BASOPHIL COUNT 0 /CUMM (0.0-0.2); ABSOLUTE EOSINOPHIL COUNT 0.2 /CUMM (0.0-0.7); ABSOLUTE GRANULOCYTE CT 6.5 /CUMM (1.4-6.5); ABSOLUTE LYMPH COUNT 2.3 /CUMM (1.2-3.4); ABSOLUTE MONOCYTE COUNT 0.9 /CUMM (0.10-0.60); BASOPHIL % 0.5 % (0.0-2.0); EOSINOPHIL % 2.4 % (0-5); GRANULOCYTE % 64.8 % (42.2-75.2); HEMATOCRIT 47.4 % (42-52); MEAN CORPUSCULAR HGB 30.2 PG (27.0-31.0); MEAN CORPUSCULAR HGB CONC 33.7 G/DL (33.0-37.0); MEAN CORPUSCULAR VOLUME 89.7 FL (80.0-94.0); MEAN PLATELET VOLUME 8.3 FL (7.4-10.4); PLATELET COUNT 186 /CUMM (130-400); RBC DISTRIBUTION WIDTH 14.8 % (11.5-14.5); RED BLOOD CELL CT 5.28 /CUMM (4.70-6.10); WHITE BLOOD CELL COUNT 10.1 /CUMM (4.8-10.8)
[2016-05-10] VITALS: BP 130/90
[2016-05-10 01:16] VITALS: BP 129/99
--- NOTE | 2016-05-10 06:45 | Patient Discharge Instructions ---
Discharge Instructions General Discharge Information You were seen/treated for: Alcohol withdrawal Possible withdrawal seizure. Special Instructions: Please follow-up with your primary care doctor within 1 week after discharge. Please follow-up with the scheduled detox program as instructed. Diet Continue normal diet: Yes Activity Full Activity/No Limits: Yes Acute Coronary Syndrome Inclusion Criteria At DC or during hospital stay patient has or had the following: ACS DIAGNOSIS No Discharge Core Measures Meds if any: Prescribed or Continued at Discharge Meds if any: NOT Prescribed or Continued at Discharge Congestive Heart Failure Inclusion Criteria At DC or during hospital stay patient has or had the following: CHF DIAGNOSIS No Discharge Core Measures Meds if any: Prescribed or Continued at Discharge Meds if any: NOT Prescribed or Continued at Discharge Cerebrovascular accident Inclusion Criteria At DC or during hospital stay patient has or had the following: CVA/TIA Diagnosis No Discharge Core Measures Meds if any: Prescribed or Continued at Discharge Meds if any: NOT Prescribed or Continued at Discharge Venous thromboembolism Inclusion Criteria VTE Diagnosis No VTE Type NONE VTE Confirmed by (Test) NONE Discharge Core Measures - Per Current guidelines, there needs to be overlap - treatment for the first 5 days of Warfarin therapy. - If discharged on Warfarin prior to 5 days of - overlap therapy, the patient will need to be - assessed for post discharge needs including - *Post discharge parental anticoagulation - *Warfarin and/or parental anticoagulation education - *Follow up date to check INR post discharge At least 5 days overlap therapy as Inpatient No Meds if any: Prescribed or Continued at Discharge Note: Overlap Therapy is Warfarin and Anticoagulant Meds if any: NOT Prescribed or Continued at Discharge
--- NOTE | 2016-05-10 07:22 | PN- Housestaff ---
AMBER VIVEROS,[facility] 05/10/16 0720: Subjective Follow-up For: Alcohol detox Subjective: I saw and examined the patient this am. he reports no complaints. he has talked with sr. social media & mobile manager yesterday and has chosen IOP at [place], we will follow up with Romy on the availability of the IOP and other options before discharge today. Review of Systems Constitutional: Denies: chills, fever, weakness. EENTM: Reports: no symptoms. Cardiovascular: Reports: no symptoms. Respiratory: Reports: no symptoms. Gastrointestinal: Reports: no symptoms. Genitourinary: Reports: no symptoms. Musculoskeletal: Reports: no symptoms. Skin: Reports: no symptoms. Neurological/Psychological: Reports: no symptoms. Hematologic/Endocrine: Reports: no symptoms. Objective Last 24 Hrs of Vital Signs/I&O Vital Signs Date Time Temp Pulse Resp B/P Pulse O2 O2 Flow FiO2 Ox Delivery Rate 05/10 0802 97.6 86 20 130/86 99 Room Air 05/10 0116 98.2 61 20 129/99 99 Room Air 05/10 0000 98.2 61 20 130/90 05/09 2230 99.0 108 20 138/85 05/09 2030 99.0 108 20 138/85 05/09 1921 99.0 108 20 138/85 98 05/09 1830 98.7 90 20 128/68 05/09 1630 90 05/09 1630 98.7 90 20 128/68 05/09 1623 98.7 112 20 128/68 98 05/09 0851 97.4 70 20 130/70 97 Room Air Intake & Output 05/10 1600 05/10 0800 05/10 0000 Intake Total 700 Output Total Balance 700 Intake, Oral 700 Number 2 Bowel Movements Physical Exam General Appearance: Alert, Oriented X3, Cooperative, No Acute Distress Skin: No Significant Lesion HEENT: Atraumatic, EOMI Neck: Supple Cardiovascular: Regular Rate, Normal S1, Normal S2, No Murmurs Lungs: Clear to Auscultation, Normal Air Movement Abdomen: Normal Bowel Sounds, Soft, No Tenderness Neurological: Normal Speech, Normal Tone Extremities: No Clubbing, No Cyanosis, No Edema, Normal Pulses, No Tenderness/ Swelling Vascular: Normal Pulses, Pulses Symmetrical Current Medications: Current Medications Sig/Megha Start time Last Medication Dose Route Stop Time Status Admin Acetaminophen 650 MG Q6P PRN 05/06 1745 AC PO Enoxaparin Sodium 40 MG DAILY@1800 05/06 1827 AC 05/09 SC 1943 Folic Acid 1 MG DAILY 05/07 1000 AC 05/09 PO 0952 Lorazepam 1 MG Q12 05/09 1000 AC 05/09 PO 2238 Lorazepam 1.5 MG Q8 05/08 1400 DC 05/09 PO 0600 Lorazepam 0 Q1P PRN 05/06 1900 AC 05/08 IV 0317 Nicotine 21 MG DAILY 05/06 1953 AC 05/09 TOP 0951 Omeprazole 40 MG DAILY AC 05/07 0704 AC 05/10 PO 0614 Oxycodone HCl 10 MG Q6P PRN 05/06 1745 AC PO Oxycodone/ 1 TAB Q6P PRN 05/06 1745 AC Acetaminophen PO Patient Medication 1 UNIT ONE NR 05/09 1000 DC Teaching ED 05/09 1600 Thiamine HCl 100 MG DAILY 05/07 1000 AC 05/09 PO 0952 Last 24 Hrs of Lab/Nikos Results Last 24 Hrs of Labs/Mics: Laboratory Tests 05/10/16 0651: Total Bilirubin 1.1, Direct Bilirubin 0.5 H, AST 265 H, ALT 337 H, Alkaline Phosphatase 71, Total Protein 7.3, Albumin 4.1 Assessment/Plan Assessment: Patient is a 25 year old male with PMH of alcohol abuse and alcohol withdrawal seizures, brought in by his parents after an episode of a seizure-like activity, requesting alcohol detox and also asking to help him quit alcohol abuse. Patient has been on Ativan taper, symptoms have resolved and is most likely be discharges today. Problem list and plan: Alcohol withdrawal Patient is alert and oriented, neurology exam is unremarkable. No tremor noted in the exam. Patient did not have any seizure like activities during the hospital stay. Most likely possible seizure before admission was in the setting of alcohol withdrawal. Patient's symptoms have resolved and CIWA scores have been 0 for th most part, 2 at times for tremor. He is given 2 pills of 0.5 mg Ativan to take this evening and tomorrow AM. * Will be discharged today on two tabs of ativan 0.5 mg today. * social work discussed with the patient, he is willing to take IOP at [place] and will be scheduled for an appointment with them. * Repeat LFT shows slight elevation of AST and ALT and direct dionisio, he is advised to refrain form alcohol intake and to follow up with the PCP within a week of discharge Pain * PO Tylenol for mild pain, Percocet for moderate pain, oxycodone for severe pain. * patient has had no pain during the hospital stay Regular diet DVT px with SC lovenox FC Problem List: 1. Alcohol withdrawal seizure 2. Alcohol dependence with withdrawal Pain Ratin Pain Location: no pain Pain Goal: Pain 4 or less Pain Plan: mild pp Tomorrow's Labs & Rationales: none EFFIE BUCHANAN 05/10/16 1533: Attending MD Review Statement Attending Statement Attending MD Statement: examined this patient, discuss w/resident/PA/SALES SOLUTIONS REPRESENTATIVE, agreed w/resident/PA/SALES SOLUTIONS REPRESENTATIVE, reviewed EMR data (avail), discussed with nursing, discussed with case mgmt Attending Assessment/Plan: Pt being dced home and will f/u with alcohol rehab as an outpatient. Rehab setup for pt with help of SW. d/w pt the importance of quitting drinking and using drugs.
[2016-05-10 08:02] VITALS: BP 130/86
[2016-05-10] MEDS ORDERED: ATIVAN0.5 M1 PO (10:18)
--- NOTE | 2016-05-10 11:43 | Discharge Summary ---
Visit Information Visit Dates Admission Date: 05/06/16 Discharge Date: 05/10/16 Hospital Course Course Attending Physician: DEWAYNE VIVEROS,EFFIE Julio Primary Care Physician: PATIENT HAS NO PRIMARY CARE DR Hospital Course: Patient is a 25 year old male who was brought in to the ED by her parents requesting alcohol detox. They also report unwitnessed possible seizure. He tried one drink in the morning for symptom relief. He went outside to smoke and came back confused with elbows and knees drenched. His mother thinks that he may have had seizures, as his eyes flickered for some time and he was confused for 5 -10 minutes. Patient does not recall the incidence but complained of feeling shaky and nauseous. Patient has a history of withdrawal seizures, last seizure 2 weeks prior, for which he was admitted to [facility] for detox and was discharged on April 25, 2016. Patient started drinking on April 27 again, was drinking daily, 7-8 (50ml) containers of Rizwan Beam daily. He also smokes cannabis 2-3 times a week and last used cocaine 2-3 weeks prior to admission. His PMH is otherwise not significant. Patient was admitted to [facility] floor and the following were addressed during his hospital stay: Alcohol withdrawal Patient received Ativan scheduled and PRN per CIWA protocol. Also received thiamine, folic acid and multivitamins. He was started on clear liquids and advanced his diet as tolerated. zofran PRN was on board. Patient was also given omeprazole PO 40 mg daily. CIWA scores improved within less than 48 hours of admission and patient was discharged on two 0.5 mg tabs of Ativan to take in the evening after discharge and in the morning afterwards as needed. We attempted to obtain records from [facility] over the weekend and on Monday05/09/16 however medical record office of the [facility] was closed on those days and we did not receive the records for the recent hospitalization. Given that that patient's possible seizure must have been likely was provoked by alcohol use, patient and family were educated about the fact that further alcohol intake and withdrawal may provoke another seizure. Patient and the parents are counseled on his refraining from alcohol and following up with rehab. Alcohol dependence Social work was consulted and patient decided to follow up outpatient with IOP clinic at [place]. Tobacco dependence Patient received nicotine patch 21 mg daily. DVT prophylaxis Lovenox Sc FULL code Allergies: Coded Allergies: No Known Allergies (05/06/16) Pertinent Lab Results: 05/09/16 0705: Anion Gap 10, Estimated GFR > 60, BUN/Creatinine Ratio 12.5, Total Bilirubin 0.9 , Direct Bilirubin 0.4, AST 231 H, ALT 274 H, Alkaline Phosphatase 72, Total Protein 6.9, Albumin 3.8, CBC w Diff NO MAN DIFF REQ, RBC 5.28, MCV 89.7, MCH 30.2, RDW 14.8 H, MPV 8.3, Gran % 64.8, Lymphocytes % 23.3, Monocytes % 9.0, Eosinophils % 2.4, Basophils % 0.5, Absolute Granulocytes 6.5, Absolute Lymphocytes 2.3, Absolute Monocytes 0.9 H, Absolute Eosinophils 0.2, Absolute Basophils 0, PUBS MCHC 33.7 05/07/16 0630: Anion Gap 10, Estimated GFR > 60, BUN/Creatinine Ratio 8.6, Phosphorus 5.0 H, Magnesium 1.7, Total Bilirubin 1.5 H, Direct Bilirubin 0.5 H, AST 229 H, ALT 209 H, Alkaline Phosphatase 78, Troponin I < 0.01, Total Protein 6.7, Albumin 3.6, CBC w Diff NO MAN DIFF REQ, RBC 5.04, MCV 89.8, MCH 30.0, RDW 14.2, MPV 8.3 , Gran % 62.7, Lymphocytes % 26.3, Monocytes % 7.8, Eosinophils % 2.8, Basophils % 0.4, Absolute Granulocytes 4.9, Absolute Lymphocytes 2.1, Absolute Monocytes 0.6, Absolute Eosinophils 0.2, Absolute Basophils 0, PUBS MCHC 33.4 Disposition Summary Disposition Principal Diagnosis: alcohol slavarthdrajeramy Additional Diagnosis: alcohol abuse, tobacco abuse Discharge Disposition: home or self care Discharge Instructions General Discharge Information Code Status: Full Code Patient's Diet: regular Patient's Activity: as tolerated Follow-Up Instructions/Appts: Please schedule appointment with primary care doctor within 1 week after discharge. Please follow-up with the scheduled detox program as instructed. Copies To: Intensive Outpt Psychiatry Attending MD Review Statement Documenting Attending: EFFIE BUCHANAN MD Other Findings: Agree with the above discharge plan. Take one tab tonight at 9PM and take the other tomorrow morning at 9AM Comments: LAST DOSE GIVEN 05/10/16 AT 10:00 AM Copies To: Intensive Outpt Psychiatry
== END 2016-05-10 12:10 | DRG 897 ==
LOC: CANRESERV → ENRESERVDT → ENRESERVTM → ERH 14:50 → ERHI 17:48 → ENPENDDIS 17:48 → 2NB 17:48
PROVIDERS: Ophthalmology; Physician Assistant; Student in an Organized Health Care Education/Training Program; ADMIT Internal Medicine
DX: F10.239 Alcohol dependence with withdrawal, unspecified (principal); F14.90 Cocaine use, unspecified, uncomplicated; R56.9 Unspecified convulsions; Y90.0 Blood alcohol level of less than 20 mg/100 ml; F12.90 Cannabis use, unspecified, uncomplicated; F17.210 Nicotine dependence, cigarettes, uncomplicated
CPT/HCPCS: 2NBP; 36415; 80307; 82436; 93005; 93010; 96374; 96375; 96376; G0480; J1650; J2405; J3490; J7060

== ENCOUNTER 2016-05-12 23:15 | Emergency (ER) | payer OTHER ==
[~2016-05-12 23:15] MED LIST: ATIVAN0.5 M1 PO
[2016-05-13 00:50] LABS: ABSOLUTE EOSINOPHIL COUNT 0.2 /CUMM (0.0-0.7); ABSOLUTE GRANULOCYTE CT 5.6 /CUMM (1.4-6.5); MEAN CORPUSCULAR HGB CONC 33.7 G/DL (33.0-37.0); MEAN PLATELET VOLUME 7.7 FL (7.4-10.4)
[2016-05-13 00:54] LABS: ABSOLUTE BASOPHIL COUNT 0.1 /CUMM (0.0-0.2); ABSOLUTE MONOCYTE COUNT 1.5 /CUMM (0.10-0.60); EOSINOPHIL % 1.5 % (0-5); GRANULOCYTE % 45.1 % (42.2-75.2); MEAN CORPUSCULAR VOLUME 89.1 FL (80.0-94.0); RBC DISTRIBUTION WIDTH 14.2 % (11.5-14.5); RED BLOOD CELL CT 5.73 /CUMM (4.70-6.10); WHITE BLOOD CELL COUNT 12.3 /CUMM (4.8-10.8)
[2016-05-13 00:56] LABS: PLATELET COUNT 283 /CUMM (130-400)
--- NOTE | 2016-05-13 02:49 | ED PSYCHIATRIC COMPLAINT ---
History of Present Illness General Chief Complaint: ETOH/Drug Related Complaint Stated Complaint: ETOH Source: patient, family, old records Exam Limitations: intoxication Vital Signs & Intake/Output Vital Signs & Intake/Output Vital Signs Date Time Temp Pulse Resp B/P Pulse O2 O2 Flow FiO2 Ox Delivery Rate 05/13 1459 98.6 96 18 141/85 05/13 1430 97.4 88 18 120/74 98 Room Air 05/13 1247 98.2 92 18 118/76 98 Room Air 05/13 1155 97.7 98 18 137/71 05/13 1006 98.4 96 20 112/78 97 Room Air 05/13 1004 98.4 96 20 112/78 05/13 0917 98.2 98 18 118/60 97 Room Air 05/13 0729 98.1 107 20 122/63 05/13 0533 98.1 102 20 91/45 96 Room Air 05/13 0530 98.1 102 20 91/45 05/13 0335 97.6 92 18 114/56 97 Room Air 05/13 0330 97.6 92 18 114/56 05/13 0040 Room Air 05/13 0030 97.4 114 18 112/66 05/13 0029 97.4 114 18 112/66 95 Room Air Allergies Coded Allergies: No Known Allergies (05/06/16) Reconcile Medications No Known Home Medications Triage Note: TRIAGE: PATIENT TO ER FROM HOME REQUESTING ETOH DETOX. PATIENT REPORTS D/LIV FROM HERE ON MONDAY S/P 5 DAY INPATIENT DETOX AND BEGAN DRINKING TODAY ADMITS TO 6 SHOTS, FAMILY STATES MULTIPLE MIXED DRINKS AND MANY SHOTS. DENIES DRUG USE, DENIES SI/HI. REPORTS HX OF ETOH WITHDRAWL SEIZURES. Triage Nurses Notes Reviewed? yes Onset: Afternoon Duration: hour(s):, constant, continues in ED Timing: recent history Severity: moderate Associated Symptoms: anxiety, impaired concentration HPI: Patient was discharged after 5 days of inpatient hospitalization for alcohol abuse with history of DTs and withdrawal seizures. Several hours prior to admission he began drinking alcohol again with confusion. There is a report of fever chills nausea vomiting diarrhea abdominal pain chest pain shortness of breath headache dysuria rash bleeding suicidal ideation homicidal ideation hallucination. (BARON VIVEROS,FIOR) Past History Travel History Traveled to [place] past 21 day No Medical History Any Pertinent Medical History? see below for history Neurological: alcohol withdrawal seizures EENT: NONE Cardiovascular: NONE Respiratory: NONE Gastrointestinal: NONE Hepatic: NONE Renal: NONE Musculoskeletal: NONE Psychiatric: alcohol dependence, depression, ADD at 20 years of age, currently not on treatment. Endocrine: NONE Blood Disorders: NONE Cancer(s): NONE SKID MAN/Reproductive: NONE History of MRSA: No History of VRE: No History of CDIFF: No Surgical History Surgical History: non-contributory Psychosocial History Services at Home None What is your primary language Palauan Tobacco Use: Current Daily Use Daily Tobacco Use Amount/Type: => 5 Cigarettes daily ETOH Use: alcoholic Illicit Drug Use: denies illicit drug use Family History Hx Contributory? No (FIOR DRAPER MD) Review of Systems Review of Systems Constitutional: Reports: no symptoms. EENTM: Reports: no symptoms. Respiratory: Reports: no symptoms. Cardiovascular: Reports: no symptoms. GI: Reports: no symptoms. Genitourinary: Reports: no symptoms. Musculoskeletal: Reports: no symptoms. Skin: Reports: no symptoms. Neurological/Psychological: Reports: see HPI. Hematologic/Endocrine: Reports: no symptoms. Immunologic/Allergic: Reports: no symptoms. All Other Systems: Reviewed and Negative (FIOR DRAPER MD) Physical Exam Physical Exam General Appearance: well developed/nourished, mild distress Head: atraumatic Eyes: Bilateral: PERRL, EOMI. Ears, Nose, Throat: normal pharynx, normal ENT inspection, hearing grossly normal Neck: normal inspection, supple Respiratory: normal breath sounds Cardiovascular: regular rate/rhythm Gastrointestinal: soft, non-tender Extremities: normal range of motion Neurological/Psychiatric: no motor/sensory deficits, awake, alert, normal mood/ affect, wrinkle chaser II-XII nml as tested, oriented x 3 Appearance/Memory/Insight: disheveled, impaired insight Behavoir/Eye Contact/Speech: cooperative, normal speech Thoughts/Hallucinations: no apparent hallucination Skin: intact, normal color, warm/dry SAD PERSONS Done? patient not suicidal (FIOR DRAPER MD) Progress Differential Diagnosis: drug intoxication, drug overdose, drug withdrawal, electrolyte abnormality, hypoglycemia Plan of Care: Orders Procedure Date/time Status Regular Diet 05/13 B Active ED CRISIS PSYCH CONSULT 05/13 07 Active CIWA 05/13 33 Active URINE DRUG SCREEN FOR ER ONLY 05/13 33 Complete ETHANOL 05/13 33 Complete COMPREHENSIVE METABOLIC PANEL 05/13 33 Complete CBC WITHOUT DIFFERENTIAL 05/13 33 Complete Laboratory Tests 05/13/16 0041: Anion Gap 19 H, Estimated GFR > 60, BUN/Creatinine Ratio 20.0, Glucose 116 H, Calcium 8.7, Total Bilirubin 0.5, AST 274 H, ALT 482 H, Alkaline Phosphatase 79, Total Protein 8.1, Albumin 4.5, Globulin 3.6, Albumin/Globulin Ratio 1.3, CBC w Diff NO MAN DIFF REQ, RBC 5.73, MCV 89.1, MCH 30.0, RDW 14.2, MPV 7.7, Gran % 45.1, Lymphocytes % 40.6, Monocytes % 11.8 H, Eosinophils % 1.5, Basophils % 1.0, Absolute Granulocytes 5.6, Absolute Lymphocytes 5.0 H, Absolute Monocytes 1.5 H, Absolute Eosinophils 0.2, Absolute Basophils 0.1, PUBS MCHC 33.7, Serum Alcohol 325.0 05/13/1635: Urine Opiates Screen < 100.00, Methadone Screen < 40, Barbiturate Screen < 60, Ur Phencyclidine Scrn < 6.00, Amphetamines Screen 177, U Benzodiazepines Scrn < 85, Urine Cocaine Screen < 50, Urine Cannabis Screen 16.20 Hand-Off Endorsed To: JUANITA VIRAMONTES MD Endorsed Time: 0700 Pending: other (CIWA) (FIOR DRAPER MD) Comments: Patient began drinking shortly after discharge and has been going to [facility]. Will have crisis talk to him to see if there are any otehr options, like inpatient rehab, that we can offer. (JUANITA VIRAMONTES MD) Departure Departure Disposition: HOME OR SELF CARE Condition: Stable Clinical Impression Primary Impression: Alcohol abuse with intoxication, with delirium Referrals: PATIENT HAS NO PRIMARY CARE DR (PCP/Family) Departure Forms: Customer Survey General Discharge Information Prescriptions: Current Visit Scripts No Known Home Medications (FIOR DRAPER MD) Departure Additional Instructions: GO STRAIGHT TO [facility] FOR [facility]PATIENT REHAB (JUANITA VIRAMONTES MD)
--- NOTE | 2016-05-13 08:55 | ED PSY CRISIS COLLATERAL NOTE ---
See Addendum Collateral Note Collateral Note Family/Inform/Laury Contacts: Voice message left for Diana Dickerson over at [facility]. Email sent to her as well.
--- NOTE | 2016-05-13 11:02 | ED PSYCH CRISIS CONSULTATION ---
See Addendum Crisis Consult Basic Assessment Date of Consult: 05/13/16 Responsible Person/Accompanied By: accompanied by Father Nickolas Insurance Authorization: Insurance #1: Insurance name: KISHAN Phone number: Policy number: [id number] Group number: [id number] Authorization number: ED Provider: Patient's ED Provider: FIOR DRAPER MD Primary Care Physician: Patient's PCP: PATIENT HAS NO PRIMARY CARE DR PCP's Phone Number: Current Psychiatrist: [facility] Chief Complaint: ETOH/Drug Related Complaint Patient's Quote: "My friend was going to surgery so we drank one last time." Present Illness: Pt is a 25yo male who was brought to the ED by his father requesting help for his alcohol use. Pt's BAL was 325 at 00:41 this morning 05/13/16. Pt was recently in inpt detox 2x this month 1st at [facility] In and discharged on Apr 25 for alcohol withdrawl seizure. Then, he was discharged from in medical on 05/10 for alcohol withdrawl seizure. He attended his [facility] intake yesterday . About 4 hours after his intake, he went out with friends and drank. He identified that he friend was going to have surgery and "we has to drink one last time." Pt says he can't remember how much he drank last night, but thinks it was about 8 shots of Rizwan Beam and "some beers". Pt denies any sx of alcohol withdrawl and states that this was the 1st time he drank since being discharged from his detox on 05/10. Pt expresses his motivation toward sobriety and would like to go to inpatient rehab alcohol treatment. Pt's father Nickolas was present and also was supportive of pt going into inpt rehab. Pt denies any Mental health concerns and denies any hx of mental health tx other than some counseling [place] [facility] [place] at age 17 or 18 for "teen stuff". Per Diana Dickerson ([facility]) Pt had shared with her that he used to be prescribed Adderall for Depression as the prescriber thought that ADHD and Depression had a strong link. Pt denies any other current substance abuse but does have a prior hx of marijuana and concaine use. Pt denies any SI/HI/SH or psychosis or any hx of such. Pt is requesting assistance with referrals to Rehab. Pt's IOP clinician Diana Dickersonalso recommends Rehab at this time. Case reviewed with Hussain Salazar of Psychiatry who agrees that pt would benefit from Rehab. Patient's Address: [place] [address] Other Phone Number: Who Do You Live With? Other (see notes) (Mom and Dad) Family/Informants Interviewed: Father Nickolas and DIANA Lal of [facility] Allergies - Coded Allergies: No Known Allergies (05/06/16) Current Medications - No Known Home Medications Laboratory Results: Laboratory Tests 05/13/16 0041: Anion Gap 19 H, Estimated GFR > 60, BUN/Creatinine Ratio 20.0, Glucose 116 H, Calcium 8.7, Total Bilirubin 0.5, AST 274 H, ALT 482 H, Alkaline Phosphatase 79, Total Protein 8.1, Albumin 4.5, Globulin 3.6, Albumin/Globulin Ratio 1.3, CBC w Diff NO MAN DIFF REQ, RBC 5.73, MCV 89.1, MCH 30.0, RDW 14.2, MPV 7.7, Gran % 45.1, Lymphocytes % 40.6, Monocytes % 11.8 H, Eosinophils % 1.5, Basophils % 1.0, Absolute Granulocytes 5.6, Absolute Lymphocytes 5.0 H, Absolute Monocytes 1.5 H, Absolute Eosinophils 0.2, Absolute Basophils 0.1, PUBS MCHC 33.7, Serum Alcohol 325.0 05/13/16 0036: Urine Opiates Screen < 100.00, Methadone Screen < 40, Barbiturate Screen < 60, Ur Phencyclidine Scrn < 6.00, Amphetamines Screen 177, U Benzodiazepines Scrn < 85, Urine Cocaine Screen < 50, Urine Cannabis Screen 16.20 Past History Past Medical History Neurological: alcohol withdrawal seizures EENT: NONE Cardiovascular: NONE Respiratory: NONE Gastrointestinal: NONE Hepatic: NONE Renal: NONE Musculoskeletal: NONE Psychiatric: alcohol dependence, depression, ADD at 20 years of age, currently not on treatment. Endocrine: NONE Blood Disorders: NONE Cancer(s): NONE GREETER/Reproductive: NONE Past Surgical History Surgical History: non-contributory Psychosocial History Strengths/Capabilities: motivated toward sobriety and willing to accept tx Physical Limitations (Interventions): none reported Psychiatric Treatment History Psych Treatment Psychiatric Treatment Yes Inpatient Treatment No Outpatient Treatment Yes Location of Treatment [facility] Reason for Treatment Depression? Dates of Treatment age 17 or 18 Response to Treatment unknown Diagnosis by History: Alcohol Use disorder Substance Use/Abuse History Drug Use/Abuse Substances Used/Abused Yes Substance Used/Abused Alcohol First Use before age 23 Last Used last night How much used/taken 8 shots and some beers How often relapsed last night For how long since last night Route of use po Substance Abuse Treatment Substance Abuse Treatment Past Substance Abuse TX Yes Inpatient Treatment Yes Outpatient Treatment Yes Location of Treatment [facility] Reason for Treatment Alcohol Dates of Treatment Apr 2016 Response to Treatment relapse Current Mental Status Mental Status Orientation: Person, Place, Situation Affect: WNL Speech: WNL Neuro-vegetative: WNL Appearance Appearance- Dress/Hygiene: farily groomed, good eye contact Behaviors Thought Process: WNL Thought Content: WNL Memory: WNL Insight: WNL SI/HI Risk Assessment Past Suicidal Ideation/Attempts No Current Suicidal Ideation/Att No Past Homicidal Ideation/Att: No Current Homicidal Ideation/Attempts No Degree of Intent: None Risk Factors: age (under 24/over 65), SA/MH hospitalized, substance abuse, male Lethality Ratin (mild) PTSD Checklist PTSD Done? patient declined ED Management Sitter: Yes Restraints: No DSM5/PS Stressors/Medical Prob Diagnosis' (DSM 5, Stressors, Medical): Alcohol Use Disorder Severe F10.20 Current GAF: 40 Departure Disposition Psych Medical Clearance Date: 05/13/16 Medically Cleared at: 1045 Time Started: 1045 Time Ended: 1115 Psychiatrist Consulted: Cade Nixon MD Date Disposition Established: 05/13/16 Time Disposition Established: 111 Plan for Disposition - Modality: INPT Alc Rehab Facility: Bed search Rationale for Disposition: Pt not in any active withdrawl. No detox needed. Pt unable to manintain sobriety out pt and would benefit from inpt alcohol rehab Referrals PATIENT HAS NO PRIMARY CARE DR (PCP/Family)
[2016-05-13 14:59] VITALS: BP 141/85
== END 2016-05-13 15:38 ==
LOC: ERH 23:15
PROVIDERS: Emergency Medicine
DX: F10.121 Alcohol abuse with intoxication delirium (principal)
CPT/HCPCS: 80307; G0463; G0480; J1885

== ENCOUNTER 2016-08-30 05:46 | Inpatient (IN) | payer OTHER ==
[~2016-08-30] VITALS: Ht 167.6 cm; Wt 81.6 kg
--- NOTE | 2016-08-30 06:06 | NUR ---
SECURITY AT BEDSIDE. CHANGING INTO BLUE SCRUBS, EVAL BY . LABS DRAWN URINE REQUESTED. REPORTS LAST ADMISSION TO [facility] IN APR 2016 BUT ONLY LASTED 4 DAYS AND BEGAN DRINKING RIGHT AFTER HAS DRANK DAILY SINCE. ADMITS TO MARIJUANA USE DENIES IV DRUG USE.
--- NOTE | 2016-08-30 06:06 | NUR ---
PT PRESENTS FOR ETOH DETOX. LAST DRINK APPROX 12 HRS AGO. REPORTS HAD A SEIZURE LAST NIGHT IN ANOTHER PERSONS PRESENCE, PT ADMITS TO ETOH WITHDRAWAL SEIZURES. DRINKS 1/5 OF [place] DAILY ARRIVES TO ED WITH FINE TREMORS, PLEASANT COOP. SL DIAPHORESIS AND HR 108. DENIES SI/HI.
--- NOTE | 2016-08-30 06:06 | ED PSYCHIATRIC COMPLAINT ---
History of Present Illness General Chief Complaint: ETOH/Drug Related Complaint Stated Complaint: ETOH Source: patient, old records Exam Limitations: no limitations Vital Signs & Intake/Output Vital Signs & Intake/Output Vital Signs Date Time Temp Pulse Resp B/P B/P Pulse O2 O2 Flow FiO2 Mean Ox Delivery Rate 08/30 0700 99.0 78 22 133/78 08/30 0609 99.0 108 20 139/79 97 Room Air Allergies Coded Allergies: No Known Allergies (05/06/16) Reconcile Medications No Known Home Medications Triage Nurses Notes Reviewed? yes HPI: Patient presents for evaluation of alcohol withdrawal. Patient states that his last alcohol was about 5:30 in the evening yesterday. He believes he had a seizure last night. He states this was confirmed by his boss with whom he lives. He states he almost certainly had a grand mal seizure last week because he ended up biting his tongue. He feels another seizure coming on because he he feels warm typically prior to the seizure. He states he has been drinking a fifth or more of bourbon daily over the past 4 years aside from a brief detox stay in April 2016. He states he began drinking 4 days after. He denies SI or HI. He does use marijuana but otherwise denies other drug use. He is a one pack per day cigarette smoker. He states he really wants to be detoxed currently. (STEPHIE VIVEROS,FATOU Gifford) Past History Travel History Traveled to [place] past 21 day No Medical History Neurological: alcohol withdrawal seizures EENT: NONE Cardiovascular: NONE Respiratory: NONE Gastrointestinal: NONE Hepatic: NONE Renal: NONE Musculoskeletal: NONE Psychiatric: alcohol dependence, depression, ADD at 20 years of age, currently not on treatment. 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 see below for history Family History Hx Contributory? No (SANTA VIVEROS,CATHLEEN) Review of Systems Review of Systems Constitutional: Reports: see HPI. EENTM: Reports: no symptoms. Respiratory: Denies: cough. Cardiovascular: Denies: chest pain. GI: Denies: abdominal pain. Genitourinary: Denies: discharge, dysuria. Musculoskeletal: Reports: no symptoms. Skin: Reports: no symptoms. Neurological/Psychological: Reports: see HPI (SEIZURE X 2 ), tonic-clonic seizures. Hematologic/Endocrine: Denies: bruising, bleeding. Immunologic/Allergic: Denies: splenectomy. All Other Systems: Reviewed and Negative (SANTA VIVEROS,CATHLEEN) Physical Exam Physical Exam General Appearance: see below Neurological/Psychiatric: see below Comments: General: Alert, calm, cooperative Head: Normocephalic, atraumatic Eyes: Normal inspection, no nystagmus, EOMI Ears: Normal inspection Nose: Normal inspection Throat: Moist mucosa Neck: Supple, no goiter Heart: Rapid Regular rate and rhythm, no murmurs rubs or gallops Lungs: Clear to auscultation bilaterally with good air entry Abdomen: Soft nontender nondistended, normal bowel sounds Chest: Nontender Extremities: Normal range of motion grossly, mild tremors present, no cyanosis clubbing or edema of the upper extremities Neurologic: cranial nerves II through XII grossly intact, speech clear, gait normal Psychiatric: No apparent delusions or hallucinations, no pressured speech or thought blocking (STEPHIE VIVEROS,FATOU D) Physical Exam General Appearance: well developed/nourished, mild distress Head: atraumatic Eyes: Bilateral: PERRL, EOMI. Ears, Nose, Throat: normal pharynx, normal ENT inspection, hearing grossly normal Neck: normal inspection, supple Respiratory: normal breath sounds Cardiovascular: regular rate/rhythm Gastrointestinal: soft, non-tender Extremities: normal range of motion Behavoir/Eye Contact/Speech: cooperative, normal speech, good eye contact Thoughts/Hallucinations: no apparent hallucination Skin: intact, normal color, warm/dry SAD PERSONS Done? patient not suicidal (SANTA VIVEROS,CATHLEEN) Progress Differential Diagnosis: ALCOHOL WITHDRAWAL Plan of Care: Orders Procedure Date/time Status Regular Diet 08/30 L Active Pathway - chart 08/31 739 Active House Staff 08/31 739 Active Patient Data 08/31 739 Active Code Status 08/31 739 Active Patient Data 08/30 736 Active ED Holding Orders 08/30 732 Active Admit to inpatient 08/30 732 Active Vital Signs 08/30 732 Active Code Status 08/30 732 Complete Pathway - chart 08/30 721 Active URINE DRUG SCREEN FOR ER ONLY 08/30 07 Active MAGNESIUM 08/30 07 Active ETHANOL 08/30 07 Active EKG 08/30 07 Active CIWA 08/30 605 Active Saline Lock 08/30 604 Active URINE DRUG SCREEN FOR ER ONLY 08/30 06 Active LIPASE 08/30 06 Complete ETHANOL 08/30 600 Complete COMPREHENSIVE METABOLIC PANEL 08/30 600 Complete CBC WITHOUT DIFFERENTIAL 08/30 600 Complete AMYLASE 08/30 600 Complete VTE Mechanical Prophylaxis 08/30 UNK Active Current Medications Sig/Megha Start time Last Medication Dose Stop Time Status Admin Enoxaparin Sodium 40 MG DAILY 08/30 1000 UNVr (Lovenox) Acetaminophen 325 MG Q6 PRN 08/30 0745 UNVr (Tylenol) Oxycodone/ 1 TAB Q6 PRN 08/30 0745 UNVr Acetaminophen (Percocet) Oxycodone/ 2 TAB Q6 PRN 08/30 0745 UNVr Acetaminophen (Percocet) Lorazepam 2 MG Q2P PRN 08/30 0730 UNVr (Ativan) Lorazepam 1 MG Q2P PRN 08/30 0730 UNVr (Ativan) Laboratory Tests 08/30/16 0600: Anion Gap 12, Estimated GFR > 60, BUN/Creatinine Ratio 23.3, Glucose 87, Calcium 8.8, Total Bilirubin 0.7, AST 248 H, ALT 343 H, Alkaline Phosphatase 65, Total Protein 7.0, Albumin 3.9, Globulin 3.1, Albumin/Globulin Ratio 1.3, Amylase 81, Lipase 363 H, CBC w Diff NO MAN DIFF REQ, RBC 5.19, MCV 87.3, MCH 29.0, RDW 16.2 H, MPV 7.8, Gran % 57.3, Lymphocytes % 28.9, Monocytes % 10.2 H, Eosinophils % 2.6, Basophils % 1.0, Absolute Granulocytes 3.4, Absolute Lymphocytes 1.7, Absolute Monocytes 0.6, Absolute Eosinophils 0.2, Absolute Basophils 0.1, PUBS MCHC 33.3, Serum Alcohol 97.0 Comments: 08/30/2016 7:08:24 AM patient has a was score of 9. He also states that he has a history of alcohol withdrawal seizures. He meets criterion for inpatient detoxification according to the [facility] emergency medicine alcohol detoxification protocol. Ativan has been ordered. Hospitalist anju. (FATOU CARD MD) Initial ED EKG: NSR (CATHLEEN PRATT MD) Departure Departure Disposition: STILL A PATIENT Condition: Stable Clinical Impression Primary Impression: Alcohol withdrawal Qualifiers: Complication of substance-induced condition: uncomplicated Qualified Code: F10.230 - Alcohol dependence with withdrawal, uncomplicated Referrals: PATIENT HAS NO PRIMARY CARE DR (PCP/Family) Departure Forms: Customer Survey General Discharge Information Prescriptions: Current Visit Scripts No Known Home Medications Admission Note Documentation of Exam: Documentation of any treatments & extenuating circumstances including Concerns Regarding Discharge (functional status, medication knowledge or non-compliance, living conditions, etc.) that warrant an admission rather than observation: Continued alcohol consumption places the patient at high risk of pancreatitis, pancreatic failure, liver failure/cirrhosis. In order to avoid this the patient will need to cease drinking alcohol. Patient's alcohol use places pt at high risk of seizures and delirium tremens during cessation. Patient will be at high risk of withdrawal seizures and delirium tremens (both of which can be fatal) for up to 5 days after stopping alcohol. pt will require IV Ativan to prevent these complications. pt is therefore a very poor candidate for outpatient treatment given the above concerns. Pt will require a multiple day hospitalization. (FATOU CARD MD) Departure Time of Disposition: 732 Admission Note Spoke With: VINI LIRIANO MD (CATHLEEN PRATT MD)
[2016-08-30 06:11] LABS: ABSOLUTE BASOPHIL COUNT 0.1 /CUMM (0.0-0.2); ABSOLUTE EOSINOPHIL COUNT 0.2 /CUMM (0.0-0.7); ABSOLUTE GRANULOCYTE CT 3.4 /CUMM (1.4-6.5); ABSOLUTE LYMPH COUNT 1.7 /CUMM (1.2-3.4); ABSOLUTE MONOCYTE COUNT 0.6 /CUMM (0.10-0.60); EOSINOPHIL % 2.6 % (0-5); GRANULOCYTE % 57.3 % (42.2-75.2); HEMATOCRIT 45.3 % (42-52); MEAN CORPUSCULAR HGB CONC 33.3 G/DL (33.0-37.0); MEAN CORPUSCULAR VOLUME 87.3 FL (80.0-94.0); MEAN PLATELET VOLUME 7.8 FL (7.4-10.4); PLATELET COUNT 141 /CUMM (130-400); RBC DISTRIBUTION WIDTH 16.2 % (11.5-14.5); RED BLOOD CELL CT 5.19 /CUMM (4.70-6.10); WHITE BLOOD CELL COUNT 5.9 /CUMM (4.8-10.8)
--- NOTE | 2016-08-30 06:32 | NUR ---
PT REPORTS HE GETS A FEELING OF TINGLING AND EXTREME RIGHT BEFORE A SZ. 2 SIDE RAILS UP AND SEIZURE PADS AT BEDSIDE. PT REMAINS ORIENTED AND CLEAR AT THIS TIME. NO CURRENT S/S OF IMPENDING SEIZURES.
[2016-08-30 07:00] VITALS: BP 133/78
--- NOTE | 2016-08-30 07:07 | NUR ---
CALLED TO ROOM BY PT REPORTS FEELING TINGLING AND WARM, SEIZURE PADS PLACED. ATIVAN 2 MG IV ADMINISTERED ORDERED.
--- NOTE | 2016-08-30 07:12 | NUR ---
MISA [phone] PLEASE CALL WITH ANY UPDATES OR QUESTIONS
--- NOTE | 2016-08-30 08:06 | NUR ---
PT ADMITTED TO ROOM 211
--- NOTE | 2016-08-30 08:19 | History & Physical ---
CECIL JAMISON 08/30/16 0753: General Information and HPI MD Statement: I have seen and personally examined MADAY PIÑAMarjorie and documented this H& P. The patient is a 26 year old M who presented with a patient stated chief complaint of [alcohol withdrawal seizures]. Source of Information: patient, old records Exam Limitations: clinical condition History of Present Illness: Patient is a 26-year-old male with past miss medical history of alcohol abuse, alcohol withdrawal seizures (last discharged from [place] on 05/06/16) presents to the ED for evaluation of a withdrawal seizure and requesting detox. Patient reports that he had a witnessed seizure last night. He had a sensation of warmth and had tonic-clonic jerks of his whole body. He believes he lost consciousness for a few minutes postprocedure however denies any bowel or bladder incontinence. Denies any chest pain, shortness of breath, nausea, vomiting, trauma. He also states he had a similar seizure last week when he ended up biting his tongue. He endorses feeling warm prior to every seizure. All the seizures were witnessed by his boss with whom he lives. His boss has undergone hip replacement surgery recently and has limited ambulation, therefore couldn't help him out. He received his last detox at [place] in April 2016 and prior to that at [facility] in March 2016. He restarted drinking about 4 days after his last detox. He admits to drinking 6-8 bottles of 50 ml of Rizwan Beam daily for the past 4 years. Last drink was yesterday evening around 5:30 PM . He is a regular marijuana cocaine ,user and smokes about 1 pack of cigarettes per day for the last several years. He has come to the ED requesting detox. Denies any SI/HI. I tried to reach the patient's mom for further history however there was no response. In the ED vitals: Temperature 90.9, pulse 108, respiration 20, blood pressure 139/79, saturating 97% on room air Labs were normal except transaminitis AST 248, ALT 343 and lipase level of 363. U tox pending. Serum alcohol level of 97 EKG showed :sinus rhythm with heart rate 81 bpm, some LVH, QTC 426 Patient received 2 mg IV Ativan in the ED. Allergies/Medications Allergies: Coded Allergies: No Known Allergies (05/06/16) Home Med list No Known Home Medications Past History Travel History Traveled to [place] past 21 day No Medical History Neurological: alcohol withdrawal seizures EENT: NONE Cardiovascular: NONE Respiratory: NONE Gastrointestinal: NONE Hepatic: NONE Renal: NONE Musculoskeletal: NONE Psychiatric: alcohol dependence, depression, ADD at 20 years of age, currently not on treatment. 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 Ambulation: independent IADLs Independent: shopping, housework, finances, food prep, telephone, transportation , medication admin. Review of Systems Review of Systems Constitutional: Reports: no symptoms. EENTM: Reports: no symptoms. Cardiovascular: Reports: no symptoms. Respiratory: Reports: no symptoms. GI: Reports: no symptoms. Genitourinary: Reports: no symptoms. Musculoskeletal: Reports: no symptoms. Skin: Reports: no symptoms. Neurological/Psychological: Reports: confusion, tremors. Exam & Diagnostic Data Last 24 Hrs of Vital Signs/I&O Vital Signs Date Time Temp Pulse Resp B/P B/P Pulse O2 O2 Flow FiO2 Mean Ox Delivery Rate 08/30 0700 99.0 78 22 133/78 08/30 0609 99.0 108 20 139/79 97 Room Air Intake & Output 08/30 1600 08/30 0800 08/30 0000 Intake Total Output Total Balance Patient 81.647 kg Weight Physical Exam General Appearance DROWSY, LETHARGIC, MUMBLED SPEECH, OBESE Skin No Rashes, No Breakdown Skin Temp/Moisture Exam: Warm/Dry Sepsis Skin Exam (color): Normal for Ethnicity HEENT Atraumatic, PERRLA, EOMI Neck No JVD Lymphatic Cervical nl Cardiovascular Regular Rate, Normal S1, Normal S2, No Murmurs Lungs Clear to Auscultation, Normal Air Movement Abdomen DISTENDED, HEPATOMEGALY Neurological Strength at 5/5 X4 Ext, Normal Tone, Sensation Intact, Cranial Nerves 3-12 NL, MUMBLED SPEECH, MILD TREMORS Extremities No Cyanosis, No Edema, Normal Pulses Assessment/Plan Assessment: Patient is a 26-year-old male with past medical history of alcohol abuse, alcohol withdrawal seizures (last discharged from [place] on 05/06/16) presents to the ED for evaluation of a withdrawal seizure and requesting detox. In the ED vitals: Temperature 90.9, pulse 108, respiration 20, blood pressure 139/79, saturating 97% on room air Labs were normal except transaminitis AST 248, ALT 343 and lipase level of 363 U tox pending. Serum alcohol level of 97 EKG showed :sinus rhythm with heart rate 81 bpm, some LVH, QTC 426 Patient received 2 mg IV Ativan in the ED. Assessment * Alcohol abuse * Alcohol withdrawal seizures * Transaminitis * Marijuana use and possible cocaine abuse Plan: * Admit to [facility] floor * CIMT protocol * Start the patient on banana bag. Can be transitioned to oral thiamine, multivitamin and folate once more awake * IV Ativan per CIWA protocol and IV Ativan Q1 when necessary * IV Protonix daily * Nothing by mouth for now, check bedside swallow * Consider ultrasound abdomen for transaminitis likely alcoholic hepatitis( though AST not more than ALT) * Follow-up U tox levels * Replete Potassium * Get baseline CXR to r/o aspiration as pt mounting mild temperature * Will check a troponin level given history of cocaine abuse * sand worker consult for IOP intake * Psych consult * Nicotine Patch * Patient had EEG done in March at [facility], please try to obtain records. * DVT prophylaxis subcutaneous Lovenox * Full code * Mild pain pathway As Ranked By This Provider Problem List: 1. Alcohol withdrawal Qualifiers Complication of substance-induced condition: uncomplicated Qualified Code: F10.230 - Alcohol dependence with withdrawal, uncomplicated 2. Alcohol dependence with withdrawal 3. Alcohol withdrawal seizure Core Measures/Miscellaneous Acute Coronary Syndrome ACS Diagnosis: No Cerebrovascular Accident CVA/TIA Diagnosis: No Congestive Heart Failure CHF Diagnosis: No VTE (View Protocol) VTE Risk Factors: [facility] d/t: No contraindications No VTE Pharm Prophylaxis d/t: No contraindications VTE Diagnosis: No VTE Type: NONE VTE Confirmed by (Test): NONE Sepsis (View Protocol) Severe Sepsis Present: No Septic Shock Septic Shock Present: No Miscellaneous Documentation Attending Case Discussed With: SERJIO CADET MD Primary Care Physician: PATIENT HAS NO PRIMARY CARE DR Patient sees these Specialists none Level of Patient Care: General Medicine SERJIO CADET MD 08/30/16 1148: Attending MD Review Statement Attending Statement Attending MD Statement: examined this patient, discuss w/resident/PA/POWER OPERATOR, agreed w/resident/PA/POWER OPERATOR, reviewed EMR data (avail), reviewed images, amended to note Attending Assessment/Plan: 26 y/o M with h sig for alcohol abuse, alcohol withdrawal seizures, admitted to [facility] with acute alcohol intoxication in April. He claims that he went to a rehabilitation afterwards but then started drinking again. He is drinking heavy amounts of alcohol. He had a seizure yesterday 2. He lives with his boss who is nonambulatory at the moment therefore he could not help him. He was brought into the hospital by his parents. Patient denies any attempts of quitting alcohol by himself at home. He currently denies any aches or pains. His CIWA scores are not that high currently. Vital Signs Date Time Temp Pulse Resp B/P B/P Pulse O2 O2 Flow FiO2 Mean Ox Delivery Rate 08/30 1001 98.7 65 22 130/75 95 Room Air 08/30 0837 99.1 69 20 138/85 08/30 0834 99.1 69 20 138/85 95 Room Air 08/30 0700 99.0 78 22 133/78 08/30 0609 99.0 108 20 139/79 97 Room Air on exam; aox3, nad. cv; s1,s2, rrr resp; clear abd; soft, nt, bs+ ext; no edema Laboratory Tests 08/30 0600 Chemistry Sodium (137 - 145 mmol/L) 137 Potassium (3.5 - 5.1 mmol/L) 3.7 Chloride (98 - 107 mmol/L) 103 Carbon Dioxide (22 - 30 mmol/L) 21 L Anion Gap (5 - 16) 12 BUN (9 - 20 mg/dL) 14 Creatinine (0.7 - 1.2 mg/dL) 0.6 L Estimated GFR (>60 ml/min) > 60 BUN/Creatinine Ratio (7 - 25 %) 23.3 Glucose (65 - 99 mg/dL) 87 Calcium (8.4 - 10.2 mg/dL) 8.8 Total Bilirubin (0.2 - 1.3 mg/dL) 0.7 AST (17 - 59 U/L) 248 H ALT (21 - 72 U/L) 343 H Alkaline Phosphatase (< 127 U/L) 65 Troponin I (<0.11 ng/ml) < 0.01 Total Protein (6.3 - 8.2 g/dL) 7.0 Albumin (3.5 - 5.0 g/dL) 3.9 Globulin (1.9 - 4.2 gm/dL) 3.1 Albumin/Globulin Ratio (1.1 - 2.2 %) 1.3 Amylase (30 - 110 U/L) 81 Lipase (23 - 300 U/L) 363 H Hematology CBC w Diff NO MAN DIFF REQ WBC (4.8 - 10.8 /CUMM) 5.9 RBC (4.70 - 6.10 /CUMM) 5.19 Hgb (14.0 - 18.0 G/DL) 15.1 Hct (42 - 52 %) 45.3 MCV (80.0 - 94.0 FL) 87.3 MCH (27.0 - 31.0 PG) 29.0 RDW (11.5 - 14.5 %) 16.2 H Plt Count (130 - 400 /CUMM) 141 MPV (7.4 - 10.4 FL) 7.8 Gran % (42.2 - 75.2 %) 57.3 Lymphocytes % (20.5 - 51.1 %) 28.9 Monocytes % (1.7 - 9.3 %) 10.2 H Eosinophils % (0 - 5 %) 2.6 Basophils % (0.0 - 2.0 %) 1.0 Absolute Granulocytes (1.4 - 6.5 /CUMM) 3.4 Absolute Lymphocytes (1.2 - 3.4 /CUMM) 1.7 Absolute Monocytes (0.10 - 0.60 /CUMM) 0.6 Absolute Eosinophils (0.0 - 0.7 /CUMM) 0.2 Absolute Basophils (0.0 - 0.2 /CUMM) 0.1 PUBS MCHC (33.0 - 37.0 G/DL) 33.3 Toxicology Serum Alcohol (<10 MG/DL) 97.0 ABD US: IMPRESSION: Increased hepatic echotexture consistent with fatty infiltration or chronic hepatocellular disease. No overt cirrhosis. No visible hepatic mass. Borderline hepatomegaly with a measurement of at least 18 cm though the entire long axis of the liver cannot be imaged on one view which makes the measurement only an estimate. No perihepatic ascites. CXR: No acute abnormality. A/P: 26-year-old male with past medical history significant for alcohol use, alcohol withdrawal seizures who is admitted now with acute alcohol intoxication as well as withdrawal seizures that happened prior to patient coming in the hospital. Patient is admitted to medicine floor. He will be started on CIWA protocol. He will be started on scheduled as well as when necessary Ativan per CIWA protocol. He'll be continued on multivitamin, folate and thiamine. He does have abnormal LFTs which is likely secondary to his alcohol use. Social work should be consulted. DVT prophylaxis: Lovenox. Full code.
[2016-08-30 08:37] VITALS: BP 138/85
--- NOTE | 2016-08-30 08:57 | RADIOLOGY REPORT ---
EXAMINATION: XR PORTABLE CHEST CLINICAL INFORMATION: Altered mental status. Aspiration pneumonia. COMPARISON: None TECHNIQUE: Portable frontal view of the chest was obtained. FINDINGS: The lungs are well expanded. There is no focal consolidation, edema, or effusion. No pneumothorax. The cardiomediastinal silhouette is within normal limits. No acute osseous abnormality. IMPRESSION: No acute pulmonary findings.
--- NOTE | 2016-08-30 09:00 | NUR ---
PER RESIDENT, POTASSIUM 10MEQ IS TO BOOST ELECTROLYTE AND NOTE BECAUSE POTASSIUM LEVEL IS LOW.
--- NOTE | 2016-08-30 09:13 | NUR ---
MEDICATED WITH 1MG ATIVAN IV (SEE MAR) PT TAKEN TO U/S.
--- NOTE | 2016-08-30 09:24 | NUR ---
REPORT TO ALYSIA MORALES. PT IS AT [facility] NOW. WILL AWAIT FOR PT TO COME BACK TO ER TO ADMINISTER MEDICATIONS AND THEN SEND TO THE FLOOR.
--- NOTE | 2016-08-30 09:40 | NUR ---
BANANA BAG INFUSING (SEE MAR)
--- NOTE | 2016-08-30 09:41 | NUR ---
TRANSPORT HERE FOR PT.
--- NOTE | 2016-08-30 09:52 | ULTRASOUND REPORT ---
EXAMINATION: US ABDOMEN LIMITED CLINICAL INFORMATION: Transaminitis with a presumptive diagnosis of alcoholic hepatitis. COMPARISON: None TECHNIQUE: Real-time imaging of the right upper quadrant abdominal viscera. FINDINGS: PANCREAS: Normal. LIVER: The liver echotexture is increased suggestive of fatty infiltration or chronic hepatocellular disease. The liver is not overtly cirrhotic. The liver is borderline/potentially enlarged. The sagittal images not completely visible in the [id number] with an estimated length of at least 18 cm. No focal mass lesion or biliary ductal dilatation. GALLBLADDER: Normal. The gallbladder is physiologically distended without evidence of stones, sludge, polyps, wall thickening or pericholecystic fluid. COMMON BILE DUCT: Normal in caliber measuring 0.6 cm in diameter. RIGHT KIDNEY: Normal. No hydronephrosis. No renal calculi or focal parenchymal lesions. The kidney measures cm in maximum dimension. FREE FLUID: None. IMPRESSION: Increased hepatic echotexture consistent with fatty infiltration or chronic hepatocellular disease. No overt cirrhosis. No visible hepatic mass. Borderline hepatomegaly with a measurement of at least 18 cm though the entire long axis of the liver cannot be imaged on one view which makes the measurement only an estimate. No perihepatic ascites.
[2016-08-30 10:01] VITALS: BP 130/75
[2016-08-30 15:04] VITALS: BP 124/60
[2016-08-30 22:23] VITALS: BP 160/112
[2016-08-31 06:00] VITALS: BP 160/112
--- NOTE | 2016-08-31 06:57 | PN- Housestaff ---
HERBERT VIVEROS,ALEXEY 08/31/16 0656: Subjective Follow-up For: Alcohol withdrawl seizures Subjective: I signed examined the patient today morning He is doing well, reports slight headaches. He denies any nausea/vomiting overnight. Reports significant sweating and mild tremors. Otherwise no issues. Review of Systems Constitutional: Reports: see HPI. Comments: ROS negative except above Objective Last 24 Hrs of Vital Signs/I&O Vital Signs Date Time Temp Pulse Resp B/P B/P Pulse O2 O2 Flow FiO2 Mean Ox Delivery Rate 08/30 2223 98.4 93 18 160/112 96 Room Air 08/30 1504 98.1 60 22 124/60 96 Room Air 08/30 1200 70 08/30 1001 98.7 65 22 130/75 95 Room Air 08/30 0837 99.1 69 20 138/85 08/30 0834 99.1 69 20 138/85 95 Room Air 08/30 0700 99.0 78 22 133/78 Intake & Output 08/31 0800 08/31 0000 08/30 1600 Intake Total 600 Output Total 600 400 Balance -600 200 Intake, IV 500 Intake, Oral 100 Output, Urine 600 400 Patient 81.647 kg Weight Weight Reported by Patient Measurement Method Physical Exam General Appearance: Alert, Oriented X3, Cooperative, No Acute Distress Skin: No Rashes, No Breakdown HEENT: Atraumatic, PERRLA, EOMI Neck: Supple Cardiovascular: Normal S1, Normal S2 Lungs: Clear to Auscultation, Normal Air Movement Abdomen: Normal Bowel Sounds, Soft, No Tenderness Neurological: Normal Gait, Normal Speech, Strength at 5/5 X4 Ext, Normal Tone Extremities: No Clubbing, No Cyanosis, No Edema Vascular: Normal Pulses, Pulses Symmetrical Current Medications: Current Medications Sig/Megha Start time Last Medication Dose Route Stop Time Status Admin Acetaminophen 325 MG Q6P PRN 08/30 0745 AC PO Cyanocobalamin/ 1 BAG DAILY 08/30 1000 AC 08/30 Thiamine/Pyridoxine IV 09/01 1759 0940 Dextrose/Water 1,000 ML Enoxaparin Sodium 40 MG DAILY 08/30 1000 AC 08/30 SC 1406 Lorazepam 0 .STK-MED ONE 08/30 0908 DC .ROUTE Lorazepam 1 MG Q6H 08/30 0900 AC 08/31 IV 0230 Lorazepam 2 MG PER PROTOCL 08/30 0845 CAN IV 08/30 0846 Lorazepam 1 MG Q1 PRN 08/30 0830 CAN IV Lorazepam 1 MG Q1P PRN 08/30 0830 AC 08/30 IV 1234 Lorazepam 2 MG Q2P PRN 08/30 0730 DC IV Lorazepam 1 MG Q2P PRN 08/30 0730 DC IV Lorazepam 2 MG ONE ONE 08/30 0715 DC 08/30 IV 08/30 0716 0715 Lorazepam 0 .STK-MED ONE 08/30 0707 DC .ROUTE Magnesium Oxide 400 MG Q4 08/30 2200 DC 08/31 PO 08/31 0201 0230 Nicotine 21 MG DAILY 08/30 1000 AC 08/30 TOP 1406 Oxycodone/ 1 TAB Q6P PRN 08/30 0745 AC Acetaminophen PO Oxycodone/ 2 TAB Q6P PRN 08/30 0745 AC Acetaminophen PO Pantoprazole Sodium 40 MG DAILY 08/30 1000 AC 08/30 IV 1406 Potassium Chloride 10 MEQ ONCE ONE 08/30 0830 DC 08/30 IV 08/30 0831 0940 Last 24 Hrs of Lab/Nikos Results Last 24 Hrs of Labs/Mics: Laboratory Tests 08/31/16 0620: Anion Gap 8, Estimated GFR > 60, BUN/Creatinine Ratio 15.7, Magnesium 1.6 Assessment/Plan Assessment: Patient is a 26-year-old male with past medical history of alcohol abuse, alcohol withdrawal seizures presented to the ED after having an episode of seizure yesterday. This last drink of alcohol was 36 hours ago and admitted to general medicine floor with alcohol withdrawal seizures. Yesterday he has been on IV Ativan and his overnight CIWA scores are between 1 - 4 for sweating and tremors. He received a total of 7 mg IV Ativan yesterday. Plan Alcohol withdrawal seizures * CIWA protocol with Ativan 1 mg every 8, taper 20% every day * Banana bag discontinued * Started on folic acid/multivitamin/thiamine Transaminitis * AST/ALT 248/343 * Ultrasound abdomen consistent with hepatic steatosis and borderline hepatomegaly * Trend LFTs High blood pressure * Patient was never diagnosed with hypertension * Reports his blood pressure has been on the higher side * Started on Norvasc 2.5 mg daily DVT prophylaxis * Subcutaneous Lovenox CODE STATUS * Full code Problem List: 1. Alcohol withdrawal seizure 2. Alcohol abuse with intoxication, with delirium Pain Ratin Pain Location: headache Pain Goal: Pain 4 or less Pain Plan: motrine tylenol for mild pain Tomorrow's Labs & Rationales: none SERJIO CADET MD 08/31/16 1129: Attending MD Review Statement Attending Statement Attending MD Statement: examined this patient, discuss w/resident/PA/GUN REPAIR CLERK, agreed w/resident/PA/GUN REPAIR CLERK, reviewed EMR data (avail), discussed with nursing, discussed with case mgmt, amended to note Attending Assessment/Plan: Patient seen and examined, overall feeling better. Claims that his blood pressure always runs high. CIWA scores are running on low side. Vital Signs Date Time Temp Pulse Resp B/P B/P Pulse O2 O2 Flow FiO2 Mean Ox Delivery Rate 08/31 0600 98.3 74 18 160/112 93 Room Air 08/30 2223 98.4 93 18 160/112 96 Room Air 08/30 1504 98.1 60 22 124/60 96 Room Air 08/30 1200 70 on exam; aox3, nad. cv; s1,s2, rrr resp; clear abd; soft, nt, bs+ ext; no edema Laboratory Tests 08/31 08/30 08/30 0620 1656 1602 Chemistry Sodium (137 - 145 mmol/L) 137 Potassium (3.5 - 5.1 mmol/L) 4.2 Chloride (98 - 107 mmol/L) 99 Carbon Dioxide (22 - 30 mmol/L) 30 Anion Gap (5 - 16) 8 BUN (9 - 20 mg/dL) 11 Creatinine (0.7 - 1.2 mg/dL) 0.7 Estimated GFR (>60 ml/min) > 60 BUN/Creatinine Ratio (7 - 25 %) 15.7 Magnesium (1.6 - 2.3 mg/dL) 1.6 1.4 L Toxicology Urine Opiates Screen (>2000 NG/ML) < 100.00 Methadone Screen (>300 NG/ML) < 40 Barbiturate Screen (>200 NG/ML) < 60 Ur Phencyclidine Scrn (>25 NG/ML) < 6.00 Amphetamines Screen (>1000 NG/ML) < 100 U Benzodiazepines Scrn (>200 NG/ML) < 85 Urine Cocaine Screen (>300 NG/ML) < 50 Urine Cannabis Screen (>50 NG/ML) 78.20 H Urines Urinalysis LIGHT H Urine Color (YEL,AMB,STR) YEL Urine Clarity (CLEAR) CLEAR Urine pH (5.0 - 8.0) 6.0 Ur Specific [place] (1.001 - 1.035) 1.020 Urine Protein (NEG,<30 MG/DL) TRACE H Urine Ketones (NEG) NEG Urine Nitrite (NEG) NEG Urine Bilirubin (NEG) NEG Urine Urobilinogen (0.1 - 1.0 EU/dl) 0.2 Ur Leukocyte Esterase (NEG) NEG Ur Microscopic SEDIMENT EXAMINED Urine RBC (0 - 5 /HPF) RARE Ur Epithelial Cells (NONE,FEW) RARE Urine Hemoglobin (NEG) NEG Urine Glucose (N MG/DL) NEG A/P; 26-year-old male with past medical history significant for alcohol use, alcohol withdrawal seizures who is admitted now with acute alcohol intoxication as well as withdrawal seizures that happened prior to patient coming in the hospital. Decrease Ativan to 1 mg 3 times a day scheduled and continue the when necessary Ativan. We will add low-dose Norvasc for the blood pressure control. Banana bag has been discontinued, please start the patient on multivitamin, folate and thiamine by mouth. Appreciate psych input. Social work evaluation is pending. DVT prophylaxis: Lovenox
--- NOTE | 2016-08-31 08:19 | Cons- Psychiatry ---
Psychiatric Consult Date of Consult: 08/31/16 Reason for Consult: "Alcohol detox" Ordered by Dr. Madeline Kendrick attending History of Present Illness: Identifying Info: 26-year-old single male presents status post reported seizure in the context of alcohol withdrawal. Admitted to medicine for detox. CC: "I'm a lot better" HPI: Patient reports prior to admission the hospital he had been consuming approximately 1 L of bourbon daily between the hours of 3 and 10 PM. Last drink on 08/29/2016. He received his last detox at [facility] in April 2016 and prior to that at [facility] in March 2016. He restarted drinking about 4 days after his last detox. He is a regular marijuana cocaine ,user and smokes about 1 pack of cigarettes per day for the last several years. He states he would consider medication for alcohol cravings but would not like to initiate any at this time. Patient educated on treatment options including risks and benefits of different therapies. Feels that naltrexone would be easier for him to be compliant with then Campral. He is agreeable to residential ETOH tx. He denies any present psychiatric complaints but does endorse a history of therapy as a teenager for conflict with family primarily. PMH: Please see the H&P for a complete listing EtOH withdrawal seizures Past Psych History: h/o MDD vs ADHD dx -Outpatient Saw therapist & MD as a teen, prescribed adderall -Inpatient None Family Psych History: None Substance History Alcohol use d/o, severe Cannabis Use Disorder, Moderate Current everyday smoker -Treatment 2 detoxes in 04/2016 at [facility] Brief stay at [facility] in 04/2016 states "was kicked out after 15 days because someone called me fat" IOP intake appointment at [facility] on 05/12/16, did not f/u Family Substance History: Uncle ETOH Social: Raised in an intact family with one younger brother in [place]. 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 No legal issues. Abuse/Trauma: Denies Current Home Psychotropic Medications: None at present: Presrcibed by Dr. Bowen at [facility] stay in 04/2016: clonidine 0.1mg QID Hydroxyzine 25mg PRN anxiety Gabapentin 300mg TID Current Hospital Psychotropic Medications: Med Lorazepam 1 MG IV Q1P PRN 08/30/16 0830 Lorazepam 2 MG PO Q8 08/31/16 1400 Allergies: Coded Allergies: No Known Allergies (05/06/16) Current Medications: Current Medications Sig/Megha Start time Last Medication Dose Route Stop Time Status Admin Acetaminophen 325 MG Q6P PRN 08/30 0745 AC PO Cyanocobalamin/ 1 BAG DAILY 08/30 1000 AC 08/30 Thiamine/Pyridoxine IV 09/01 1759 0940 Dextrose/Water 1,000 ML Enoxaparin Sodium 40 MG DAILY 08/30 1000 AC 08/30 SC 1406 Lorazepam 0 .STK-MED ONE 08/30 0908 DC .ROUTE Lorazepam 1 MG Q6H 08/30 0900 DC 08/31 IV 0230 Lorazepam 2 MG PER PROTOCL 08/30 0845 CAN IV 08/30 0846 Lorazepam 1 MG Q1 PRN 08/30 0830 CAN IV Lorazepam 1 MG Q1P PRN 08/30 0830 AC 08/30 IV 1234 Lorazepam 2 MG Q2P PRN 08/30 0730 DC IV Lorazepam 1 MG Q2P PRN 08/30 0730 DC IV Magnesium Chloride 64 MG DAILY 08/31 1000 AC PO Magnesium Oxide 400 MG Q4 08/30 2200 DC 08/31 PO 08/31 0201 0230 Nicotine 21 MG DAILY 08/30 1000 AC 08/30 TOP 1406 Oxycodone/ 1 TAB Q6P PRN 08/30 0745 AC Acetaminophen PO Oxycodone/ 2 TAB Q6P PRN 08/30 0745 AC Acetaminophen PO Pantoprazole Sodium 40 MG DAILY 08/30 1000 AC 08/30 IV 1406 Potassium Chloride 10 MEQ ONCE ONE 08/30 0830 DC 08/30 IV 08/30 0831 0940 Past History Past Medical History Neurological: alcohol withdrawal seizures EENT: NONE Cardiovascular: NONE Respiratory: NONE Gastrointestinal: NONE Hepatic: NONE Renal: NONE Musculoskeletal: NONE Psychiatric: alcohol dependence, depression, ADD at 20 years of age, currently not on treatment. Endocrine: NONE Blood Disorders: NONE Cancer(s): NONE TEAM LEAD/Reproductive: NONE Past Surgical History Surgical History: non-contributory Psychosocial History Strengths/Capabilities: motivated toward sobriety and willing to accept tx Physical Limitations (Interventions): none reported Psychiatric Treatment History Psych Treatment Psychiatric Treatment Yes (as above) Diagnosis: Alcohol Use disorder Risk Factors: age (under 24/over 65), SA/MH hospitalized, substance abuse, male Substance Use/Abuse History Drug Use/Abuse Substances Used/Abused Yes (as above) Substance Abuse Treatment Substance Abuse Treatment Past Substance Abuse [place] Yes (as above) Assessment/Plan Mental Status Mental Status Exam: Mental Status Exam Presentation/Appearance: Cooperative with evaluation. Sitting in bed eating breakfast with no shirt on. Orientation: x4 Sensorium: Awake and alert Eye contact: Appropriate Affect: Full range, congruent Mood: "Good" Depression: Denies Anxiety: Denies Thought Content: - Denies SI/HI, AH/VH, PI. States and also believes they will not kill themselves. - Denies Hopeless/Helpless Thoughts Thought Process: Linear Associations: WNL Speech: Normal tone and rate Judgment: Fair Insight: Fair Cognition: Memory: Grossly intact Attention/Concentration: Grossly intact Fund of Knowledge: Adequate Abstractions: WNL MMSE: Did not assess Brief ROS Gait: No issues Sleep: Adequate Appetite: Adequate Energy: Low IADLs/ADLs: Independent Lab Results: Laboratory Tests 08/31/16 0620: Anion Gap 8, Estimated GFR > 60, BUN/Creatinine Ratio 15.7, Magnesium 1.6 08/30/16 1656: Magnesium 1.4 L 08/30/16 1602: Urine Opiates Screen < 100.00, Methadone Screen < 40, Barbiturate Screen < 60, Ur Phencyclidine Scrn < 6.00, Amphetamines Screen < 100, U Benzodiazepines Scrn < 85, Urine Cocaine Screen < 50, Urine Cannabis Screen 78.20 H, Urinalysis LIGHT H, Urine Color YEL, Urine Clarity CLEAR, Urine pH 6.0, Ur Specific [place] 1.020, Urine Protein TRACE H, Urine Ketones NEG, Urine Nitrite NEG, Urine Bilirubin NEG, Urine Urobilinogen 0.2, Ur Leukocyte Esterase NEG, Ur Microscopic SEDIMENT EXAMINED, Urine RBC RARE, Ur Epithelial Cells RARE, Urine Hemoglobin NEG, Urine Glucose NEG 08/30/16 0722: Magnesium Cancelled, Serum Alcohol Cancelled 08/30/16 0601: Methadone Screen Cancelled, Barbiturate Screen Cancelled, Ur Phencyclidine Scrn Cancelled, Amphetamines Screen Cancelled, U Benzodiazepines Scrn Cancelled, Urine Cocaine Screen Cancelled, Urine Cannabis Screen Cancelled 08/30/16 0600: Anion Gap 12, Estimated GFR > 60, BUN/Creatinine Ratio 23.3, Glucose 87, Calcium 8.8, Magnesium 1.3 L, Total Bilirubin 0.7, AST 248 H, ALT 343 H, Alkaline Phosphatase 65, Troponin I < 0.01, Total Protein 7.0, Albumin 3.9, Globulin 3.1, Albumin/Globulin Ratio 1.3, Amylase 81, Lipase 363 H, CBC w Diff NO MAN DIFF REQ, RBC 5.19, MCV 87.3, MCH 29.0, RDW 16.2 H, MPV 7.8, Gran % 57.3, Lymphocytes % 28.9, Monocytes % 10.2 H, Eosinophils % 2.6, Basophils % 1.0, Absolute Granulocytes 3.4, Absolute Lymphocytes 1.7, Absolute Monocytes 0.6, Absolute Eosinophils 0.2, Absolute Basophils 0.1, PUBS MCHC 33.3, Serum Alcohol 97.0 Microbiology 08/30 1422 BLOOD: Blood Culture - RECD 08/30 1416 BLOOD: Blood Culture - RECD Diffential Diagnosis: Alcohol use disorder, severe Cannabis use disorder, moderate Rule out unspecified mood disorder Impression: 26-year-old single male presents status post reported withdrawal seizure in the context of discontinuation of alcohol. Of note this patient is quite young to be experiencing withdrawal seizures. He would benefit from an is agreeable to residential alcohol treatment. Additionally he would benefit from medication to help with alcohol cravings and he is agreeable once more medically stable. He is high risk for relapse. Provisional Treatment Plan: 1. Continue CIWA, vitamin supplementation, and Ativan taper. 2. No psychiatric intervention at this time. 3. Appreciate social work assistance with disposition planning. Thank you for including psychiatry in this case, we will only follow as needed. Please contact us if additional assistance is required.
--- NOTE | 2016-08-31 10:00 | NUR ---
LATE ENTRY: PT'S BP ELEVATED. PT DENIES ANY PAIN. NO DISTRESS. HERE FOR WITHDRAWAL. SALES SUPPORT ADMINISTRATOR ALEXEY NOTIFIED. SNO. WILL CONT TO MONITOR.
--- NOTE | 2016-08-31 14:45 | NUR ---
Referral received yesterday via electronic order builder. This is a 26 year old man, admitted to the hospital on 08/30/16 with alcohol withdrawal seizures. Placed on CIWA for observation, and has had minimal symptoms; most recently scoring just a "2" for tremors and sweats. 6mg. ativan in 24 hours. I met with patient and his parents late this morning. We began by reviewing Nicola'es recent treatmnet history, and initially all was well. Conversation went sour quickly and Travis told this typewriters functional tester that he wanted a "private" conversation and his parents left the room. Travis seems to have a volitile relationship with his parents; he did not want to address events of his youth which may have impacted this relationship. He is currently residing with his employer; not a sober environment but one that Travis thinks "works". Travis does not have either a vehicle nor a valid drivers license at this time; uses a moped for transportation. Contemplating IOP level of care; I provided him with information about [facility] in [place]. Case discussed with Kasey Romano APRN from psychiatry.
[2016-08-31 15:02] VITALS: BP 148/98
[2016-08-31 16:00] VITALS: BP 148/98
--- NOTE | 2016-08-31 19:00 | NUR ---
PATIENT RESTING COMFORTABLY IN ROOM, OFFERING NO COMPLAINTS. CIWA 0-1. SEIZURE PRECAUTIONS IN PLACE.
--- NOTE | 2016-08-31 20:01 | NUR ---
PATIENT REC'D CALL FROM HIS BOSS, SAYING HE WAS FIRED AND HE HAD TO MOVE OUT. PATIENT BECAME VERY UPSET, ANXIOUS, TREMULOUS. PROVIDED EMOTIONAL SUPPORT. GAVE PRN ATIVAN FOR CIWA SCORE OF 9. PASTORAL CARE UNABLE TO SEE PATIENT. CRISIS CAN'T SEE PATIENT THEY SAW HIM THIS AM. KAMINI PAGE SITTING WITH PATIENT FOR ADD'L SUPPORT. CONTINUE TO MONITOR.
--- NOTE | 2016-08-31 21:42 | Patient Discharge Instructions ---
Discharge Instructions General Discharge Information You were seen/treated for: Medically supervises EtoH-Detox Special Instructions: Please follow up with in a week (patient had no PCP) Please follow up with outpatient/inpatient psychiatric program Please follow up with Dr. Lance for further information regarding seizure workup if needed. Diet Continue normal diet: Yes Activity Full Activity/No Limits: Yes Acute Coronary Syndrome Inclusion Criteria At DC or during hospital stay patient has or had the following: ACS DIAGNOSIS No Discharge Core Measures Meds if any: Prescribed or Continued at Discharge Meds if any: NOT Prescribed or Continued at Discharge Congestive Heart Failure Inclusion Criteria At DC or during hospital stay patient has or had the following: CHF DIAGNOSIS No Discharge Core Measures Meds if any: Prescribed or Continued at Discharge Meds if any: NOT Prescribed or Continued at Discharge Cerebrovascular accident Inclusion Criteria At DC or during hospital stay patient has or had the following: CVA/TIA Diagnosis No Discharge Core Measures Meds if any: Prescribed or Continued at Discharge Meds if any: NOT Prescribed or Continued at Discharge Venous thromboembolism Inclusion Criteria VTE Diagnosis No VTE Type NONE VTE Confirmed by (Test) NONE Discharge Core Measures - Per Current guidelines, there needs to be overlap - treatment for the first 5 days of Warfarin therapy. - If discharged on Warfarin prior to 5 days of - overlap therapy, the patient will need to be - assessed for post discharge needs including - *Post discharge parental anticoagulation - *Warfarin and/or parental anticoagulation education - *Follow up date to check INR post discharge At least 5 days overlap therapy as Inpatient No Meds if any: Prescribed or Continued at Discharge Note: Overlap Therapy is Warfarin and Anticoagulant Meds if any: NOT Prescribed or Continued at Discharge
[2016-08-31 22:53] VITALS: BP 148/108
[2016-08-31 23:10] VITALS: BP 140/90
[2016-09-01 06:00] VITALS: BP 140/68
[2016-09-01 07:00] VITALS: BP 140/68
--- NOTE | 2016-09-01 07:26 | PN- Housestaff ---
JIMY HOLLINS 09/01/16 0724: Subjective Follow-up For: Alcohol use History of Alcohol withdrawal seizures Elevated liver enzymes Complaints: no complaints Subjective: PT comfortable. CIWA scores 0-9. No complaints. Vitals stable, and BP remained neisha. Review of Systems Constitutional: Reports: see HPI. Objective Last 24 Hrs of Vital Signs/I&O Vital Signs Date Time Temp Pulse Resp B/P B/P Pulse O2 O2 Flow FiO2 Mean Ox Delivery Rate 08/31 2310 140/90 08/31 2253 98.0 107 24 148/108 95 Room Air 08/31 1600 98.8 89 18 148/98 08/31 1502 98.8 89 18 148/98 98 Room Air 08/31 1130 91 140/90 Intake & Output 09/01 0800 09/01 0000 08/31 1600 Intake Total 840 390 Output Total Balance 840 390 Intake, IV 40 Intake, Oral 840 350 Number 1 Bowel Movements Physical Exam General Appearance: No Acute Distress Other Physical Findings: General Appearance: Alert, Oriented X3, Cooperative, No Acute Distress Skin: No Rashes, No Breakdown HEENT: Atraumatic, PERRLA, EOMI Neck: Supple Cardiovascular: Normal S1, Normal S2 Lungs: Clear to Auscultation, Normal Air Movement Abdomen: Normal Bowel Sounds, Soft, No Tenderness Neurological: Normal Gait, Normal Speech, Strength at 5/5 X4 Ext, Normal Tone Extremities: No Clubbing, No Cyanosis, No Edema Vascular: Normal Pulses, Pulses Symmetrical Current Medications: Current Medications Sig/Megha Start time Last Medication Dose Route Stop Time Status Admin Acetaminophen 325 MG Q6P PRN 08/30 0745 AC PO Amlodipine Besylate 2.5 MG DAILY 08/31 1006 AC 08/31 PO 1130 Cyanocobalamin/ 1 BAG DAILY 08/30 1000 DC 08/31 Thiamine/Pyridoxine IV 09/01 1759 1119 Dextrose/Water 1,000 ML Enoxaparin Sodium 40 MG DAILY 08/30 1000 AC 08/31 SC 1023 Folic Acid 1 MG DAILY 08/31 1551 AC 08/31 PO 1813 Ibuprofen 400 MG ONCE ONE 08/31 1430 DC 08/31 PO 08/31 1431 1429 Lorazepam 2 MG Q8 08/31 1400 DC PO Lorazepam 1 MG Q8 08/31 1400 AC 09/01 PO 0631 Lorazepam 1 MG Q8 08/31 0823 DC 08/31 PO 1023 Lorazepam 1 MG Q6H 08/30 0900 DC 08/31 IV 0230 Lorazepam 1 MG Q1P PRN 08/30 0830 AC 08/31 IV 1955 Magnesium Chloride 64 MG DAILY 08/31 1000 AC 08/31 PO 1022 Multivitamins 1 TAB DAILY 08/31 1551 AC 08/31 PO 1813 Nicotine 21 MG DAILY 08/30 1000 AC 08/31 TOP 1023 Oxycodone/ 1 TAB Q6P PRN 08/30 0745 AC 08/31 Acetaminophen PO 2135 Oxycodone/ 2 TAB Q6P PRN 08/30 0745 AC Acetaminophen PO Pantoprazole Sodium 40 MG DAILY 08/30 1000 AC 08/31 IV 1022 Patient Medication 1 ED .STK-MED ONE 08/31 1408 TN Teaching ED 08/31 1409 Thiamine HCl 50 MG DAILY 08/31 1551 AC 08/31 PO 1812 Last 24 Hrs of Lab/Nikos Results Last 24 Hrs of Labs/Mics: Laboratory Tests 09/01/16 0610: Sodium Pending, Potassium Pending, Chloride Pending, Carbon Dioxide Pending, Anion Gap Pending, BUN Pending, Creatinine Pending, BUN/Creatinine Ratio Pending , Magnesium Pending Assessment/Plan Assessment: Patient is a 26-year-old male with past medical history of alcohol abuse, alcohol withdrawal seizures presented to the ED after having an episode of seizure yesterday. This last drink of alcohol was 36 hours ago and admitted to general medicine floor with alcohol withdrawal seizures. Yesterday he has been on IV Ativan and his overnight CIWA scores are between 1 - 4 for sweating and tremors. He received a total of 7 mg IV Ativan yesterday. Plan Alcohol withdrawal seizures * CIWA protocol with Ativan 1 mg every 12 * Banana bag discontinued * Started on folic acid/multivitamin/thiamine Transaminitis * AST/ALT 248/343 * Ultrasound abdomen consistent with hepatic steatosis and borderline hepatomegaly * Trend LFTs High blood pressure * Patient was never diagnosed with hypertension * Reports his blood pressure has been on the higher side * Pt is young, and appear to have isolated findings of elevated BP. Could be attributed to alcohol withdrawl. Having hypertesnion at this age, is unlikely, but not completely ruled out. Unsure, if committing a young man to daily hypertensives before ascertainign the reason, is reasonable. Continue to monitor , and coudl be addressed as an outpatient. DVT prophylaxis * Subcutaneous Lovenox CODE STATUS * Full code Problem List: 1. Alcohol withdrawal Pain Ratin Pain Location: back Pain Goal: Pain 4 or less Pain Plan: tylenol prn Tomorrow's Labs & Rationales: no labs, pt stable. CHICHI VIVEROS,SERJIO 09/01/16 1349: Attending MD Review Statement Attending Statement Attending MD Statement: examined this patient, discuss w/resident/PA/UNDERGROUND MINE SUPERINTENDENT, agreed w/resident/PA/UNDERGROUND MINE SUPERINTENDENT, reviewed EMR data (avail), discussed with nursing, discussed with case mgmt, reviewed images, amended to note Attending Assessment/Plan: Patient seen and examined, feeling overall much better. CIWA scores are running low and blood pressure is slightly improved. At this point we'll continue cutback on his Ativan. Continue current medications otherwise. Continue same dose of Norvasc. Continue multivitamin, folate and thiamine. Possible discharge tomorrow and he will require social work evaluation.
[2016-09-01 14:27] VITALS: BP 134/80
[2016-09-01 23:37] VITALS: BP 143/83
[2016-09-02] VITALS: BP 143/83
[2016-09-02 06:00] VITALS: BP 138/86
[2016-09-02 06:24] VITALS: BP 138/86
--- NOTE | 2016-09-02 06:48 | PN- Housestaff ---
See Addendum Subjective Follow-up For: Alcohol use History of alcohol withdrawal seizures Elevated liver enzymes Complaints: no complaints Subjective: Patient seen and examined at bedside this AM. He was sitting up in no acute distress reporting no anxiety. He did have an episode of anxiety last night after a phone call with his boss/roomate, though this is no longer problematic. Patient is willing and happy for discharge today. Review of Systems Constitutional: Denies: chills, fever, weakness. EENTM: Denies: blurred vision, visual changes, hearing changes, nasal congestion. Cardiovascular: Denies: chest pain, palpitations. Respiratory: Denies: cough, short of breath. Gastrointestinal: Denies: abdominal pain, nausea, vomiting. Genitourinary: Denies: dysuria. Musculoskeletal: Denies: back pain, joint pain. Skin: Denies: rash. Neurological/Psychological: Denies: confusion, headache, numbness. Hematologic/Endocrine: Denies: bruising, polyuria. Immunologic/Allergic: Denies: splenectomy. Objective Last 24 Hrs of Vital Signs/I&O Vital Signs Date Time Temp Pulse Resp B/P B/P Pulse O2 O2 Flow FiO2 Mean Ox Delivery Rate 09/02 0624 97.8 85 20 138/86 95 Room Air 09/02 0600 97.8 85 20 138/86 06/16 0000 99.2 92 18 143/83 06/ 2337 99.2 92 18 143/83 99 Room Air 09/01 1427 98.6 80 18 134/80 97 Room Air Intake & Output 09/02 1600 /16 0800 0616 0000 Intake Total 480 340 Output Total Balance 480 340 Intake, Oral 480 340 Physical Exam General Appearance: Alert, Oriented X3, Cooperative, No Acute Distress Skin: No Significant Lesion Skin Temp/Moisture Exam: Warm/Dry HEENT: Atraumatic, PERRLA, EOMI, Mucous Membr. moist/pink Neck: Supple, No JVD Lymphatic: Cervical nl Cardiovascular: Regular Rate, Normal S1, Normal S2, No Murmurs Lungs: Clear to Auscultation, Normal Air Movement Abdomen: Normal Bowel Sounds, Soft, No Tenderness Neurological: Normal Speech, Normal Tone Extremities: No Clubbing, No Cyanosis, No Edema Vascular: Pulses Symmetrical Current Medications: Current Medications Sig/Megha Start time Last Medication Dose Route Stop Time Status Admin Acetaminophen 325 MG Q6P PRN 06/13 0745 AC PO Enoxaparin Sodium 40 MG DAILY 08/30 1000 AC 09/02 SC 1045 Folic Acid 1 MG DAILY 08/31 1551 AC 09/02 PO 1045 Lorazepam 1 MG DAILY 09/02 1000 AC 09/02 PO 1047 Lorazepam 1 MG BID 09/01 2200 DC 09/01 PO 2205 Lorazepam 1 MG Q1P PRN 08/30 0830 AC 09/02 IV 0102 Magnesium Chloride 64 MG DAILY 08/31 1000 AC 09/02 PO 1045 Multivitamins 1 TAB DAILY 08/31 1551 AC 09/02 PO 1045 Nicotine 21 MG DAILY 08/30 1000 AC 09/02 TOP 1045 Oxycodone/ 1 TAB Q6P PRN 08/30 0745 AC 08/31 Acetaminophen PO 2135 Oxycodone/ 2 TAB Q6P PRN 08/30 0745 AC 09/01 Acetaminophen PO 2124 Pantoprazole Sodium 40 MG DAILY 08/30 1000 AC 09/01 IV 0930 Thiamine HCl 50 MG DAILY 08/31 1551 AC 09/02 PO 1045 Assessment/Plan Assessment: Mr. Gonsalez is a 26-year-old male with past medical history of alcohol abuse and alcohol withdrawal seizures whopresented to the ED after having an episode of seizure the day of admission. His last drink of alcohol was 36 hours prior to presentation. In the ED: Vital signs showed T 99.0, HR 108, RR 20, BP 139/70 and O2 saturation of 97% on room air. Labs were significant for transaminitis of AST 248, ALT 343. Lipase level of 363. Serum alcohol level of 97. EKG showed :sinus rhythm with heart rate 81 bpm, some LVH, QTC 426 Patient was admitted to the general medicine floor and the following is the management: 1. Alcohol withdrawal seizures * CIWA yolandeo lcontinued * 1 mg PO ativan daily, will discharge patient on 0.5 mg PO ativan for one day ( 09/03) and then STOP * Social work consult appreciated, Romy has given patient follow up information for IOP * Patient reports he is motivated and will follow up at after discharge * Discharge with thiamine, MV, folate 2. Transaminitis * AST/ALT 248/343 on admission * Ultrasound abdomen consistent with hepatic steatosis and borderline hepatomegaly * Alcohol cessation counseling provided * Patient will follow up with PCP who can periodically monitor LFTs as indicated 3. High blood pressure, RESOLVED * No previous diagnosis of HTN * Could be attributed to alcohol withdrawl. Having hypertesnion at this age is unlikely, but not completely ruled out * BP has since become normalized, with most recent reading 138/86 * No need for antihypertensives at this point in time, patient will follow up with PCP for further monitoring in the community 4. Tobacco use * Tobacco cessation counseling provided * Nicotine patch daily 5. DVT prophylaxis * Subcutaneous Lovenox, early ambulation 6. CODE STATUS * Full code 7. Diet * Regular Problem List: 1. Alcohol dependence with withdrawal 2. Alcohol withdrawal seizure Pain Ratin Pain Location: n/a Pain Goal: Remain pain free Pain Plan: Per pain pathway Tomorrow's Labs & Rationales: None, discharge today.
--- NOTE | 2016-09-02 07:48 | NUR ---
NURSING NOTE: AROUND 0645 AM PT WAS FOUND TO HAVE ALTERED CONVERSATIONS WHILE THIS RN AND MST WERE TAKING VITALS AND PASSING MEDS. PT STATES HE GOT OUT OF BED TO USE THE BATHROOM BECAUSE HE COULD NOT FIND HIS CALL BUTTON WHICH HE SAID HAD FELL ON THE FLOOR. PT HAS HISTORY OF STROKE AND THIS RN FELT THE NEED TO ASSESS FOR STROKE SYMPTOMS. PT ASSESSED FOR ORIENTATION AND PT PASSED AT [facility]. NO ACUTE CHANGES NOTED. INSPECTOR AND CLERK SANTOS ANTHONY MADE AWARE. BED ALARM IN PLACE. NEEDS WITHIN REACH. REPORT GIVEN TO ONCOMING NURSE.
[2016-09-02] MEDS ORDERED: ATIVAN0.5 M1 PO ×2 (08:07→09:22)
[2016-09-02] MEDS ORDERED: ONE DAILY MULT1 EAC2 PO ×2 (08:51→09:22)
[2016-09-02] MEDS ORDERED: VITAMIN B-150 M1 PO ×2 (08:51→09:22)
[2016-09-02] MEDS ORDERED: FOLIC ACID1 M1 PO ×2 (08:51→09:22)
--- NOTE | 2016-09-02 13:06 | Discharge Summary ---
Visit Information Visit Dates Admission Date: 08/30/16 Discharge Date: 09/02/16 Hospital Course Course Attending Physician: SERJIO CADET MD Primary Care Physician: PATIENT HAS NO PRIMARY CARE DR Consulting Request: Consulting Specialty: Psychiatry Consulting Physician: Cordell Romano Reason for Consult: Alcohol abuse Hospital Course: Mr. Gonsalez is a 26-year-old male with past medical history of alcohol abuse and alcohol withdrawal seizures whopresented to the ED after having an episode of seizure the day of admission. His last drink of alcohol was 36 hours prior to presentation. In the ED: Vital signs showed T 99.0, HR 108, RR 20, BP 139/70 and O2 saturation of 97% on room air. Labs were significant for transaminitis of AST 248, ALT 343. Lipase level of 363. Serum alcohol level of 97. Physical exam showed: General Appearance DROWSY, LETHARGIC, MUMBLED SPEECH, OBESE Skin No Rashes, No Breakdown Skin Temp/Moisture Exam: Warm/Dry Sepsis Skin Exam (color): Normal for Ethnicity HEENT Atraumatic, PERRLA, EOMI Neck No JVD Lymphatic Cervical nl Cardiovascular Regular Rate, Normal S1, Normal S2, No Murmurs Lungs Clear to Auscultation, Normal Air Movement Abdomen DISTENDED, HEPATOMEGALY Neurological Strength at 5/5 X4 Ext, Normal Tone, Sensation Intact, Cranial Nerves 3-12 NL, MUMBLED SPEECH, MILD TREMORS Extremities No Cyanosis, No Edema, Normal Pulses EKG showed :sinus rhythm with heart rate 81 bpm, some LVH, QTC 426 Patient was admitted to the general medicine floor and the following was the management: 1. Alcohol withdrawl seizure: Patient was admitted to the general medicine floor , started on CIWA protocol and given vitamins via banana bag. IV ativan was ordered per CIWA. Patient was initially NPO but as he became more alert and oriented he was started on a regular diet. CXR was negative for aspiration. Social work and psychiatric consults were obtained. Ativan was tapered slowly and patient transitioned to oral thiamine, folate, multivitamin. Patient was given 1 tab of 0.5 mg PO ativan to complete ativan taper on 09/03/16. He was given information about outpatient IOP as well as encouraged to return to . He was given follow up referral to Dr. Shay MD at patient's request for possible EEG consideration. Patient was also given a PCP referral to Dr. Sara MD to set up primary care. 2. Transaminitis: AST/ALT 248/343 on admission. Ultrasound abdomen consistent with hepatic steatosis and borderline hepatomegaly. Alcohol cessation counseling provided. Patient will follow up with PCP who can periodically monitor LFTs as indicated and continue to encourage alcohol cessation. 3. High blood pressure: Kehinde has no previous diagnosis of hypertension and elevated blood pressure readings inpatient could be releated to alcohol withdrawl. Amlodipine was ordered as needed, however blood pressure readings normalized prior to discharge. Patient will follow up with PCP who can monitor blood pressure and consider antihypertensives if needed in the outpatient setting. 4. Tobacco use: Tobacco cessation counseling provided. Nicotine patch ordered daily. 5. DVT Prophylaxis: SC Lovenox 6. Diet: Regular 7. Code status: FULL Complications: None. Allergies: Coded Allergies: No Known Allergies (05/06/16) Significant Procedures: Abdominal US: IMPRESSION: Increased hepatic echotexture consistent with fatty infiltration or chronic hepatocellular disease. No overt cirrhosis. No visible hepatic mass. Borderline hepatomegaly with a measurement of at least 18 cm though the entire long axis of the liver cannot be imaged on one view which makes the measurement only an estimate. No perihepatic ascites. CXR: IMPRESSION: No acute pulmonary findings. Disposition Summary Disposition Principal Diagnosis: Alcohol withdrawal seizures Additional Diagnosis: Transaminitis High blood pressure Tobacco use Discharge Disposition: home or self care Discharge Instructions General Discharge Information Code Status: Full Code Patient's Diet: Regular diet. Patient's Activity: Self-limited, as tolerated. Follow-Up Instructions/Appts: 1. Please follow up with Dr. Almaraz within a week (patient had no PCP so he was referred to one). 2. Please follow up with outpatient psychiatric program. 3. Please follow up with Dr. Lance for further information regarding seizure workup if needed. Medications at Discharge Discharge Medications: Start taking the following new medications: Lorazepam (Ativan) 0.5 MG TABLET 1 Tablet ORAL DAILY not to exceed 1 tab per day Qty = 1 No Refills Instructions: take on 09/03/16 then stop Comments: Last Taken: 09/02/16 Time: 1030 Folic Acid (Folic Acid) 1 MG TABLET 1 Milligram ORAL DAILY Qty = 30 No Refills Instructions: , Comments: Last Taken: 09/02/16 Time: 1030 Thiamine HCl (Vitamin B-1) 50 MG TABLET 50 Milligram ORAL DAILY Qty = 30 No Refills Instructions: . Comments: Last Taken: 09/02/16 Time: 1030 Multivitamin (One Daily Multivitamin) 1 EACH TABLET 1 Tablet ORAL DAILY Qty = 30 No Refills Instructions: . Comments: Last Taken: 09/02/16 Time: 1030 Copies To: SHAY VIVEROS,KEELEY Naqvi; SARA VIVEROS,BLANQUITA Attending MD Review Statement Documenting Attending: CHICHI VIVEROS,SERJIO
== END 2016-09-02 12:03 | DRG 897 ==
LOC: ERH 05:46 → 2NB 07:33 → ERHI 07:33 → ENRESERV 08:02 → ENTRNSPT 09:29 → EDTRNSPTSTS 09:39 → 2NB 09:42 → CMPTRNSPT 11:38 → ENPENDDIS 09-02 09:35 → 2NB 09-02 12:03
PROVIDERS: Emergency Medicine; ADMIT Hospitalist
DX: F10.239 Alcohol dependence with withdrawal, unspecified (principal); R56.9 Unspecified convulsions; F12.20 Cannabis dependence, uncomplicated; F17.200 Nicotine dependence, unspecified, uncomplicated
CPT/HCPCS: 2NBP; 36415; 80307; 81001; 82436; 87040; 93005; 93010; 96374; 96375; G0480; J1650; J3490; J7060

== ENCOUNTER 2016-09-19 12:25 | Inpatient (IN) | payer OTHER ==
[~2016-09-19] VITALS: Ht 167.6 cm; Wt 81.6 kg
[2016-09-19] VITALS (7 sets, daily range): BP systolic 134–172; BP diastolic 62–106
[~2016-09-19 12:25] MED LIST changes: +FOLIC ACID1 M1 PO; +ONE DAILY MULT1 EAC2 PO; +VITAMIN B-150 M1 PO
--- NOTE | 2016-09-19 12:32 | NUR ---
PT STATES HE IS HAVING WITHDRAWELS FROM ETOH SEEN HERE 2 WEEKS AGO FOR SAME. PT STATES HE WAS IN [facility] FOR 4 DAYS. PT STATES HE HAD TO DO 6 SHOTS JUST BEFORE HE CAME HERE AND 2 AT 0500 TO KEEP THE SHAKES DOWN. PT STATES HE DOES SMOKE MARIJUANNA AT TIMES. PT DENIES SI/HI
--- NOTE | 2016-09-19 12:46 | NUR ---
SECURITY TO BEDSIDE FOR WANDING AND CHANGING INTO BLUE SCRUBS
--- NOTE | 2016-09-19 12:50 | ED GENERAL ADULT ---
History of Present Illness General Chief Complaint: ETOH/Drug Related Complaint Stated Complaint: REQUESTING DETOX FORM ETOH -SI -HI Source: patient, old records Exam Limitations: no limitations Vital Signs & Intake/Output Vital Signs & Intake/Output Vital Signs Date Time Temp Pulse Resp B/P B/P Pulse O2 O2 Flow FiO2 Mean Ox Delivery Rate 09/20 1999 98.0 128 20 170/100 07/ 1836 98.0 112 18 158/86 98 Room Air / 1658 98.0 116 20 154/100 07/ 1522 98 18 141/75 97 Room Air 07/ 1422 98.2 76 16 134/62 07/ 1422 98.2 76 16 134/62 99 Room Air / 1355 83 07/ 1340 103 16 139/79 07/ 1340 99 Room Air / 1302 103 16 139/79 98 Room Air / 1232 98.3 123 16 129/92 96 Room Air Allergies Coded Allergies: No Known Allergies (05/06/16) Reconcile Medications Folic Acid 1 MG TABLET 1 MG PO DAILY Supplement , Lorazepam (Ativan) 0.5 MG TABLET 1 TAB PO DAILY Etoh Detox take on 09/03/16 then stop Multivitamin (One Daily Multivitamin) 1 EACH TABLET 1 TAB PO DAILY Supplement . Thiamine HCl (Vitamin B-1) 50 MG TABLET 50 MG PO DAILY Supplement . Triage Note: PT STATES HE IS HAVING WITHDRAWELS FROM ETOH SEEN HERE 2 WEEKS AGO FOR SAME. PT STATES HE WAS IN [facility] FOR 4 DAYS. PT STATES HE HAD TO DO 6 SHOTS JUST BEFORE HE CAME HERE AND 2 AT 0500 TO KEEP THE SHAKES DOWN. PT STATES HE DOES SMOKE MARIJUANNA AT TIMES. PT DENIES SI/HI Triage Nurses Notes Reviewed? yes Onset: Abrupt Duration: week(s): (2), constant, continues in ED, getting worse Timing: single episode today Severity: mild, moderate No Modifying Factors: none HPI: 26-year-old male history of alcohol abuse and alcohol associated seizures presents for evaluation of alcohol withdrawal. Patient reports that he was discharged from Inpatient Psychiatry here [place] 2 weeks ago for alcohol withdrawal. He reports that within 3 hours of discharge he started drinking again. He reports that he drinks 1 L of bourbon daily. He has been drinking like this for the past 4 years. Today he reports drinking 8 shots of bourbon before he came in. Currently he reports feeling intense anxiety and was having some shakes earlier today. He was seen in the ED 2 weeks ago and did have a seizure associated with his alcohol withdrawal. He currently denies any suicidal ideation, homicidal ideation, chest pain, shortness of breath, palpitations, sweats, chills, abdominal pain, back pain. He reports that he is trying to get into a long-term inpatient rehabilitation facility. (CINDY ELLIS PA-C) Past History Travel History Traveled to [place] past 21 day No Medical History Any Pertinent Medical History? see below for history Neurological: alcohol withdrawal seizures EENT: NONE Cardiovascular: NONE Respiratory: NONE Gastrointestinal: NONE Hepatic: NONE Renal: NONE Musculoskeletal: NONE Psychiatric: alcohol dependence, depression, ADD at 20 years of age, currently not on treatment. Endocrine: NONE Blood Disorders: NONE Cancer(s): NONE STUDENT DEVELOPMENT DEAN/Reproductive: NONE History of MRSA: No History of VRE: No History of CDIFF: No Surgical History Surgical History: non-contributory Psychosocial History Who do you live with Other (see notes) Services at Home None What is your primary language Yakut Tobacco Use: Current Daily Use Daily Tobacco Use Amount/Type: => 5 Cigarettes daily ETOH Use: alcoholic Illicit Drug Use: marijuana Family History Hx Contributory? Yes (CINDY ELLIS PA-C) Review of Systems Review of Systems Constitutional: Reports: no symptoms. EENTM: Reports: no symptoms. Respiratory: Reports: no symptoms. Cardiovascular: Reports: no symptoms. GI: Reports: no symptoms. Genitourinary: Reports: no symptoms. Musculoskeletal: Reports: no symptoms. Skin: Reports: no symptoms. Neurological/Psychological: Reports: see HPI, anxiety, headache. Hematologic/Endocrine: Reports: no symptoms. Immunologic/Allergic: Reports: no symptoms. All Other Systems: Reviewed and Negative (CINDY ELLIS PA-C) Physical Exam Physical Exam General Appearance: well developed/nourished, no apparent distress, alert, awake , anxious Head: atraumatic, normal appearance Eyes: Bilateral: normal appearance, PERRL, EOMI. Ears, Nose, Throat: normal pharynx, normal ENT inspection, hearing grossly normal Neck: normal inspection, supple, full range of motion Respiratory: normal breath sounds, chest non-tender, no respiratory distress, lungs clear Cardiovascular: regular rate/rhythm, normal peripheral pulses Peripheral Pulses: 2+ dorsalis pedis (R), 2+ dorsalis pedis (L) Gastrointestinal: normal bowel sounds, soft, non-tender, no organomegaly Back: normal inspection, normal range of motion, no vertebral tenderness Extremities: normal inspection, normal capillary refill, normal range of motion, no edema Neurologic/Psych: no motor/sensory deficits, awake, alert, oriented x 3, normal gait, normal mood/affect Reflexes: 2+: knee (R), knee (L). Skin: intact, normal color, warm/dry Lymphatic: no anterior cervical karthikeyan Core Measures ACS in differential dx? No CVA/TIA Diagnosis: No Severe Sepsis Present: No Septic Shock Present: No (CALEB MAN,CINDY) Progress Differential Diagnoses I considered the following diagnoses in my evaluation of the patient: [Alcohol intoxication, drug intoxication, alcohol withdrawal, which show an abnormality, dehydration, seizure disorder] Plan of Care: Orders Procedure Date/time Status Heart Healthy Diet 09/20 B Active Patient Data 09/19 2053 Active ED Holding Orders 09/19 2020 Active Admit to inpatient 09/19 2020 Active Vital Signs 09/19 2020 Active Code Status 09/19 2020 Active EKG 09/20 2007 Active CIWA 09/19 1655 Active Telemetry/Medical Assistant Supervisor 09/19 1257 Active URINE DRUG SCREEN FOR ER ONLY 09/19 1257 Complete URINALYSIS 09/19 1257 Complete ETHANOL 09/19 1257 Complete COMPREHENSIVE METABOLIC PANEL 09/19 1257 Complete CBC WITHOUT DIFFERENTIAL 09/19 1257 Complete EKG 09/19 1257 Active ED CRISIS PSYCH CONSULT 09/19 1257 Active Current Medications Sig/Megha Start time Last Medication Dose Stop Time Status Admin Lorazepam 2 MG ONCE ONE 09/19 2014 CAN (Ativan) 09/20 2015 Sodium Chloride 1,000 ML BOLUS ONE 09/19 2014 AC 09/19 (Normal Saline 0.9%) 09/19 Nicotine 14 MG DAILY 09/20 1843 UNVr 09/19 (Nicotine Cq) 2043 Laboratory Tests 09/19/16 1336: Urine Opiates Screen < 100.00, Methadone Screen < 40, Barbiturate Screen < 60, Ur Phencyclidine Scrn < 6.00, Amphetamines Screen 123, U Benzodiazepines Scrn < 85, Urine Cocaine Screen < 50, Urine Cannabis Screen 79.60 H, Urinalysis LIGHT H, Urine Color YEL, Urine Clarity CLEAR, Urine pH 6.5, Ur Specific Nimitz 1.025 , Urine Protein 100 H, Urine Ketones NEG, Urine Nitrite NEG, Urine Bilirubin NEG@ICTO, Urine Urobilinogen 0.2, Ur Leukocyte Esterase NEG, Ur Microscopic SEDIMENT EXAMINED, Urine RBC 1-3, Urine WBC RARE, Ur Epithelial Cells RARE, Urine Hemoglobin TRACE-LYSED H, Urine Glucose NEG 09/19/16 1310: Anion Gap 16, Estimated GFR > 60, BUN/Creatinine Ratio 15.7, Glucose 92, Calcium 9.0, Total Bilirubin 0.5, AST 100 H, ALT 122 H, Alkaline Phosphatase 84, Total Protein 7.8, Albumin 4.7, Globulin 3.1, Albumin/Globulin Ratio 1.5, CBC w Diff NO MAN DIFF REQ, RBC 5.77, MCV 86.0, MCH 28.9, RDW 15.1 H, MPV 7.4, Gran % 59.4 , Lymphocytes % 33.1, Monocytes % 6.2, Eosinophils % 0.9, Basophils % 0.4, Absolute Granulocytes 5.6, Absolute Lymphocytes 3.1, Absolute Monocytes 0.6, Absolute Eosinophils 0.1, Absolute Basophils 0, PUBS MCHC 33.6, Serum Alcohol 374.0 Patient will have basic blood work and urinalysis done including ethanol and urine drug screen. He'll be monitored on telemetry and have an EKG due to elevated heart rate. Skin monitored for alcohol withdrawal. Crisis consult will be put in after he is stabilized. 4:45 PM: Patient reports he feels as though his could have a seizure. CIWA level currently is 8. He is tolerating fluids. Patient was given 2 mg of Ativan by mouth along with 4 mg of Zofran ODT for nausea. Will continue to be reassessed. 824 PM: Repeat CIWA score is at 15. Patient will be given 2mg IV Ativan, IV fluids and will be admitted to medicine for alcohol detox. He will also have a repeat EKG. (CINDY ELLIS PA-C) Initial ED EKG: sinus rhythm, lad, no st or t wave changes (CINDY ELLIS PA-C) Departure Departure Condition: Stable Referrals: PATIENT HAS NO PRIMARY CARE DR (PCP/Family) Departure Forms: Customer Survey General Discharge Information Admission Note Spoke With: TAE WILKES MD Documentation of Exam: Documentation of any treatments & extenuating circumstances including Concerns Regarding Discharge (functional status, medication knowledge or non-compliance, living conditions, etc.) that warrant an admission rather than observation: [ Patient requires inpatient admission for alcohol detox. His CIWA has been over 15. He has a history of alcohol withdrawal associated seizures. Last seizure being 2 weeks ago. He will require Serial labs, serial CIWA exams, IV Ativan, IV hydration, monitoring of vital signs, monitoring blood pressure, crisis eval] (CINDY ELLIS PA-C) Departure Time of Disposition: 2027 Disposition: STILL A PATIENT Clinical Impression Primary Impression: Alcohol withdrawal delirium PA/FIRST COAT OPERATOR Co-Sign Statement Statement: ED Attending supervision documentation- [X] I saw and evaluated the patient. I have also reviewed all the pertinent lab results and diagnostic results. I agree with the findings and the plan of care as documented in the PA's/FIRST COAT OPERATOR's documentation. [X] I have reviewed the ED Record and agree with the PA's/FIRST COAT OPERATOR's documentation. [] Additions or exceptions (if any) to the PAs/FIRST COAT OPERATOR's note and plan are summarized below: [] (SANTA VIVEROS,CATHLEEN) Critical Care Note Critical Care Note Critical Care Time: non-applicable (CINDY ELLIS PA-C)
--- NOTE | 2016-09-19 12:51 | NUR ---
FÉLIX ELLIS IN ROOM FOR EVALUATION
[2016-09-19 13:20] LABS: ABSOLUTE BASOPHIL COUNT 0 /CUMM (0.0-0.2); ABSOLUTE EOSINOPHIL COUNT 0.1 /CUMM (0.0-0.7); ABSOLUTE GRANULOCYTE CT 5.6 /CUMM (1.4-6.5); ABSOLUTE LYMPH COUNT 3.1 /CUMM (1.2-3.4); ABSOLUTE MONOCYTE COUNT 0.6 /CUMM (0.10-0.60); BASOPHIL % 0.4 % (0.0-2.0); EOSINOPHIL % 0.9 % (0-5); GRANULOCYTE % 59.4 % (42.2-75.2); HEMATOCRIT 49.7 % (42-52); MEAN CORPUSCULAR HGB 28.9 PG (27.0-31.0); MEAN CORPUSCULAR HGB CONC 33.6 G/DL (33.0-37.0); MEAN PLATELET VOLUME 7.4 FL (7.4-10.4); PLATELET COUNT 228 /CUMM (130-400); RBC DISTRIBUTION WIDTH 15.1 % (11.5-14.5); RED BLOOD CELL CT 5.77 /CUMM (4.70-6.10); WHITE BLOOD CELL COUNT 9.4 /CUMM (4.8-10.8)
--- NOTE | 2016-09-19 13:29 | NUR ---
PT GIVEN ICE WATER TO ENCOURAGE PROVIDING URINE SAMPLE. EKG COMPLETED
--- NOTE | 2016-09-19 13:30 | NUR ---
PT BLOOD SENT TO THE LAB SST,LAV
--- NOTE | 2016-09-19 13:38 | NUR ---
URINE TRIO SENT TO LAB, PT CONCERNED "MY URINE IS REALLY YELLOW ARE MY KIDNEYS SHUTTING DOWN?" PT EDUCATED ON IMPORTANCE OF INCREASING WATER INTAKE. URINE CLEAR YELLOW, TRIO SENT TO LAB. SINUS RATE 102 ON CM. AAOX3
--- NOTE | 2016-09-19 14:21 | NUR ---
PT INFORMED OF TEST RESULTS AND PLAN FOR ETOH TO DECREASE IN ORDER TO BE EVALUATED BY CRISIS FOR DETERMINATION OF DETOX OPTIONS. INFORMED OF PLAN FOR MONITORING OF VS AND PHYSICAL SYMPTOMS. IN AGREEMENT WITH THIS PLAN
--- NOTE | 2016-09-19 15:30 | NUR ---
REPORT GIVEN TO RECEIVING RN LC Beebe AND PT AMBULATORY WITH STRONG STEADY GAIT TO ROOM 15. FOOD TRAY ORDERED BY LEIDA
--- NOTE | 2016-09-19 16:55 | NUR ---
PATIENT C/O "NOT DOING WELL" REPORTS OF SEIZURES IN PAST FEELS LIKE HE IS W/D TACHYCARDIC / HYPERTENSIVE/ SEVERE H/A/ PHOTOPHOBIA REPORTED TO ER PA MEDICATED PER ORDER
--- NOTE | 2016-09-19 20:41 | NUR ---
AT 1999 RE-EVAL PATIENT FOUND TO HAVE HR 128 B/P 170/100 ALERT ORIENTED C/O PHOTOPHOPIA / NO TREMOR C/O H/A AND PERSISTANT NAUSEA HAD RE-EVAL AT 2014 PATIENT WAS RE-EVAL BY ER IV EST RIGHT WRIST 1000 ML NS GIVEN 2 MG ATIVAN IVP
--- NOTE | 2016-09-19 20:50 | History & Physical ---
[facility] 09/19/162048: General Information and HPI MD Statement: I have seen and personally examined MADAY GONSALEZ and documented this H& P. The patient is a 26 year old M who presented with a patient stated chief complaint of []. Source of Information: patient, old records Exam Limitations: no limitations History of Present Illness: Patient is a 26-year-old male with a past history of alcohol dependence and alcoholic withdrawal seizures who presents today for withdrawal symptoms of insomnia, shakes, vomiting, anxiety, disorientation, chills and fevers. The patient states he was discharged 2 weeks ago from [facility] on 09/02/2016 for treatment of alcohol withdrawal. He stated that he started drinking 3 hours post discharge. He states his current symptoms started last . He states that he has had 8 shots today beginning at 9:30 AM. He says he has drank today in order to be able to come into the emergency department without any withdrawal symptoms. He states he has been drinking 1 L of Zoraida cramer daily for the past 4 years. The patient states he has had 7 hospitalizations for alcohol withdrawal since April 19 2016. The patient states his current symptoms are insomnia, fevers, night sweats, chills, GI upset, and disorientation. He has also stated that he has noticed having difficulties with his memory. 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 His Utox was positive for cannibis. His AST was 100 and ALT was 122. The patient also states that he has not had a primary care visit in 4 years. His last primary care was a band master if he would now like to establish care here in the [facility]. Allergies/Medications Allergies: Coded Allergies: No Known Allergies (05/06/16) Home Med list Clonidine HCl 0.1 MG TABLET 1 TAB PO Q6H PRN BLOOD PRESSURE Folic Acid 1 MG TABLET 1 MG PO DAILY Supplement , Hydroxyzine Pamoate 25 MG CAPSULE 1 CAP PO TID PRN ANXIETY (Reported) Ibuprofen (Advil) 200 MG CAPSULE 1 CAP PO PRN PAIN (Reported) Multivitamin (One Daily Multivitamin) 1 EACH TABLET 1 TAB PO DAILY Supplement . Thiamine HCl (Vitamin B-1) 50 MG TABLET 50 MG PO DAILY Supplement . Trazodone HCl 50 MG TABLET 1 TAB PO PRN SLEEP (Reported) Past History Travel History Traveled to [place] past 21 day No Medical History Neurological: alcohol withdrawal seizures EENT: NONE Cardiovascular: NONE Respiratory: NONE Gastrointestinal: NONE Hepatic: NONE Renal: NONE Musculoskeletal: NONE Psychiatric: alcohol dependence, depression, ADD at 20 years of age, currently not on treatment. Endocrine: NONE Blood Disorders: NONE Cancer(s): NONE PEDIATRIC RN/Reproductive: NONE History of MRSA: No History of VRE: No History of CDIFF: No Surgical History Surgical History: wisdom teeth extraction Past Family/Social History Family History Relations & Conditions if any Relation not specified for: Alcohol abuse and dependence FH: diabetes mellitus Psychosocial History Services at Home: None Smoking Status: Current Everyday Smoker (1.5ppd x 10 years) ETOH Use: 1L zoraida cramer daily Illicit Drug Use: marijuana Functional Ability ADLs Independent: dressing, eating, toileting, bathing. Ambulation: independent IADLs Independent: shopping, housework, finances, food prep, telephone, transportation , medication admin. Review of Systems Review of Systems Constitutional: Reports: chills, diaphoresis, fever. EENTM: Reports: blurred vision. Cardiovascular: Denies: chest pain, edema, orthopena, palpitations. Respiratory: Denies: no symptoms. GI: Reports: abdominal pain, vomiting. Genitourinary: Denies: no symptoms. Musculoskeletal: Denies: no symptoms. Skin: Denies: no symptoms. Neurological/Psychological: Reports: anxiety, ataxia, confusion, tremors. Exam & Diagnostic Data Last 24 Hrs of Vital Signs/I&O Vital Signs Date Time Temp Pulse Resp B/P B/P Pulse O2 O2 Flow FiO2 Mean Ox Delivery Rate 09/20 0425 98.2 85 20 138/90 98 Room Air 09/20 0400 98.2 85 20 138/90 / 0304 98.9 92 20 146/98 07/ 0300 98.9 92 20 146/98 / 0214 98.9 88 20 146/98 95 Room Air / 0200 98.9 88 20 146/98 07/ 0100 98.9 90 20 148/98 07/ 0010 98.9 92 20 150/100 95 Room Air 07/ 0000 98.9 92 20 150/100 07/03 2257 100 158/100 07/03 2234 98.0 111 20 172/106 96 Room Air 07/03 2156 98.0 90 18 154/78 07/03 2155 98.0 90 18 154/78 97 Room Air 07/ 2106 90 18 124/60 97 Room Air 07/03 2000 98.0 128 20 170/100 07/03 1836 98.0 112 18 158/86 98 Room Air 07/ 1658 98.0 116 20 154/100 07/03 1522 98 18 141/75 97 Room Air 07/ 1422 98.2 76 16 134/62 07/03 1422 98.2 76 16 134/62 99 Room Air 07/ 1355 83 07/03 1340 103 16 139/79 07/03 1340 99 Room Air 07/ 1302 103 16 139/79 98 Room Air 07/ 1232 98.3 123 16 129/92 96 Room Air Intake & Output 09/20 0800 07/04 0000 07/03 1600 Intake Total 400 480 Output Total 100 Balance 400 380 Intake, Oral 400 480 Output, Urine 100 Patient 180 lb 175 lb Weight Weight Reported by Patient Measurement Method Physical Exam General Appearance Alert, Oriented X3, Cooperative, No Acute Distress Skin No Rashes Skin Temp/Moisture Exam: Warm/Dry HEENT Atraumatic, PERRLA Cardiovascular Normal S1, Normal S2, No Murmurs, Tachycardic Lungs Clear to Auscultation, Normal Air Movement Abdomen Normal Bowel Sounds, Soft, No Tenderness, No Hepatospenomegaly, No Masses Neurological Cranial Nerves 3-12 NL Extremities No Edema, Normal Pulses Last 24 Hrs of Labs/Nikos: Laboratory Tests 09/19/16 1336: Urine Opiates Screen < 100.00, Methadone Screen < 40, Barbiturate Screen < 60, Ur Phencyclidine Scrn < 6.00, Amphetamines Screen 123, U Benzodiazepines Scrn < 85, Urine Cocaine Screen < 50, Urine Cannabis Screen 79.60 H, Urinalysis LIGHT H, Urine Color YEL, Urine Clarity CLEAR, Urine pH 6.5, Ur Specific [place]lette 1.025 , Urine Protein 100 H, Urine Ketones NEG, Urine Nitrite NEG, Urine Bilirubin NEG@ICTO, Urine Urobilinogen 0.2, Ur Leukocyte Esterase NEG, Ur Microscopic SEDIMENT EXAMINED, Urine RBC 1-3, Urine WBC RARE, Ur Epithelial Cells RARE, Urine Hemoglobin TRACE-LYSED H, Urine Glucose NEG 09/19/16 1310: Anion Gap 16, Estimated GFR > 60, BUN/Creatinine Ratio 15.7, Glucose 92, Calcium 9.0, Total Bilirubin 0.5, AST 100 H, ALT 122 H, Alkaline Phosphatase 84, Total Protein 7.8, Albumin 4.7, Globulin 3.1, Albumin/Globulin Ratio 1.5, Amylase 55, Lipase 223, CBC w Diff NO MAN DIFF REQ, RBC 5.77, MCV 86.0, MCH 28.9, RDW 15.1 H, MPV 7.4, Gran % 59.4, Lymphocytes % 33.1, Monocytes % 6.2, Eosinophils % 0.9, Basophils % 0.4, Absolute Granulocytes 5.6, Absolute Lymphocytes 3.1, Absolute Monocytes 0.6, Absolute Eosinophils 0.1, Absolute Basophils 0, PUBS MCHC 33.6, Serum Alcohol 374.0 Diagnostic Data EKG Results normal sinus rhythm with left axis deviation CXR Results FINDINGS: The lungs are well expanded. There is no focal consolidation, edema, or effusion. No pneumothorax. The cardiomediastinal silhouette is within normal limits. No acute osseous abnormality. IMPRESSION: No acute pulmonary findings. Other Results Abd U/S IMPRESSION: Increased hepatic echotexture consistent with fatty infiltration or chronic hepatocellular disease. No overt cirrhosis. No visible hepatic mass. Borderline hepatomegaly with a measurement of at least 18 cm though the entire long axis of the liver cannot be imaged on one view which makes the measurement only an estimate. No perihepatic ascites. Assessment/Plan Assessment: A: Patient is a 26-year-old male with a past history of alcohol dependence and alcoholic withdrawal seizures who presents today for alcoholic withdrawal symptoms seeking detox. P: 1. Alcohol withdrawal The patient past history of alcohol dependence and alcoholic withdrawal seizures. He presents today for withdrawal symptoms of insomnia, shakes, diorientation, vomiting, anxiety, disorientation, chills and fevers. His most recent alcohol withdrawal was 2 weeks ago. After which, began drinking 3 hours post discharge. He states he has been drinking 1 L Zoraida cramer daily for the past 4 years. The patient states he has had 7 hospitalizations for alcohol withdrawal since April 19 2016. We will begin CIWA protocol and IV ativan per CIWA. We administered a banana bag and will then change to PO MVI, thiamine, and folic acid. We will continue his home hyoxyzine for anxiety. A social work consult has been placed. -[facility] protocol -continue PO MVI, thiamine 50 mg daily PO, folic acid 1mg PO daily -hydroxyzine 25 mg PO TID prn anxiety -f/u social work consult 2. Autonomic instability The patients BP intially range from 130s-170s systolic. His heart rate ranged from 76 to 128 bpm. We will continue to monitor his vitals and continue him on his home clonidine. -continue clonidine .1 mg PO q6 prn 3. Alcoholic gastritis. Per attending recommendations we will begin Zofran PRN, add omeprazole 20 mg po, gentle hydration, and check amylase/lipase to rule out pancreatitis. -Zofran 4mg prn -continue omeprazole 20 mg PO -f/u amylase/lipase 4. Nicotine dependence He smokes 1.5ppd for the last 10 years. We will perscribe a nicotine patch and smoking cessation. -Continue nicotine patch 14mg daily -Smoking cessation counseling 5. History of cocaine abuse The patient states he did not use cocaine when I interviewed him. However per the attending note, there is a history of cocaine abuse. We will check the EKG and trops in the AM per attending recommendations -check EKG and trops in AM 6. Transaminitis His AST was 100 and ALT was 122. Per attending recommendations we will trend LFTs after hydration -trend LFTs DVT prophylaxis: Lovenox Code status: Full code Core Measures/Miscellaneous Acute Coronary Syndrome ACS Diagnosis: No Cerebrovascular Accident CVA/TIA Diagnosis: No Congestive Heart Failure CHF Diagnosis: No VTE (View Protocol) VTE Risk Factors: Acute medical illness, Smoking No [facility] VTE prophylaxis d/t: No contraindications No VTE Pharm Prophylaxis d/t: No contraindications VTE Diagnosis: No VTE Type: NONE VTE Confirmed by (Test): NONE Sepsis (View Protocol) Severe Sepsis Present: No Septic Shock Septic Shock Present: No Miscellaneous Documentation Attending Case Discussed With: [facility] Primary Care Physician: PATIENT HAS NO PRIMARY CARE DR Level of Patient Care: General Medicine [facility] 09/20/16 0423: Attending Review Statement Attending Statement Attending Statement: examined this patient, discuss w/resident/PA/INSTRUMENTATION TECHNICIAN, agreed w/resident/PA/INSTRUMENTATION TECHNICIAN Attending Assessment/Plan: 26 yo M 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 He drinks 1 liter of bourbon daily, last drink was 8 shots of bourbon prior to coming to ER. C/o nausea, nonbloody emesis, with no abdominal discomfort, chills or diarrhea. Vitals stable except for tachycardia to 100's and BP 150/100 --> 146/98. Examination remarkable for mild tremors. Labs: H/H 16.7/49.7, AST 100, ALT 122. UA proteinuria, Utox positive for cannabis. Alcohol 374. EKG: SR, nonspecific ST -T changes. 1. Alcohol withdrawal. GM admit, seizure precautions, CIWA protocol, IV ativan per CIWA, PO ativan 2 mg Q6, banana bag then change to PO MVI/thiamine/folic acid, Social work consult for inpatient rehabilitation. Smoking cessation counseling, nicotine patch. Given h/o cocaine abuse, would check EKG and troponin in AM. BP control with clonidine. Initiate hydroxyzine PRN for anxiety. 2. Alcoholic gastritis. Zofran PRN, add PPI while inpatient. Gentle hydration. No evidence of epigastric pain, would check amylase and lipase to rule out pancreatitis. 3. Transaminitis 2/2 alcohol use. Trend LFTS after hydration. DVT ppx Lovenox. Full code. AKHIL VIVEROS,[facility] 09/20/16 0537: General Information and HPI MD Statement: I have seen and personally examined MADAY GONSALEZ and documented this H& P. The patient is a 26 year old M who presented with a patient stated chief complaint of []. Assessment/Plan As Ranked By This Provider Problem List: 1. Hyponatremia 2. Alcohol dependence with withdrawal Core Measures/Miscellaneous Acute Coronary Syndrome ACS Diagnosis: No Congestive Heart Failure CHF Diagnosis: No VTE (View Protocol) VTE Risk Factors: Acute medical illness [facility] V[facility] prophylaxis d/t: No contraindications No VTE Pharm Prophylaxis d/t: No contraindications VTE Diagnosis: No VTE Type: NONE VTE Confirmed by (Test): NONE Miscellaneous Documentation Attending Case Discussed With: BUZZ WILKES [facility] Primary Care Physician: PATIENT HAS NO PRIMARY CARE DR Patient sees these Specialists NA Level of Patient Care: General Medicine Resident Review Statement Resident Statement: examined this patient, discussed with contracts intern, agreed with contracts intern Other Findings: Mr Gonsalez is a 26-year old gentleman with the past medical history of alcohol abuse and withdrawal seizures last admitted to [facility] weeks ago was coming to the emergency department on 09/19/2016 requesting alcohol withdrawal. Patient states that since time of discharge he has resumed drinking alcohol. He states that he has been consuming up to 1 L of bourbon on a daily basis. Prior to coming in he reports having 6 shots of Beam whiskey. Patient states that his motivation to come in was that he could not perform at his job anymore. 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 He also reports two episodes of vomiting. States vomiting did not contain any bile or blood States he last had a seizure on May 05 owing to alcohol withdrawal. Review of systems: he denies any chest pain, palpitations, night sweats, chills. He also reported feeling slightly lightheaded and occasional blurry vision. Patient also reports increased anxiety, shakes and mild tremors. HEENT: extraocular motion intact, no nystagmus. Pupils equally round and reactive to light and accommodation. Nose is atraumatic. External auditory canal and Tympanic membranes clear. Pharynx normal. No swelling or edema. Neck: Supple, no lymphadenopathy, normal range of motion without pain or tenderness Back: Nontender, no CVA tenderness. Cardiovascular: Regular rate and rhythms no murmurs rubs or gallops, normal JVP Respiratory: Chest nontender. No respiratory distress. Breath sounds clear to auscultation bilaterally Abdomen: Soft, nontender nondistended, no appreciable organomegaly. Normal bowel sounds. No ascites, no rebound or guarding. Extremity: No edema, no calf tenderness to palpation, normal and equal pulses. Neuro: Alert oriented X3. Cranial nerves II through XII grossly intact. Skin: No appreciable rash on exposed skin, skin is warm and dry. Labs at the time of admission were notable for AST: of 100 ALT: of 122. Potassium was 3.9. Alcohol Level: 374 Vitals: Temperature 98.3, pulse rate 123, respiration rate 16, blood pressure 129/92, and saturating 96% on room air. EKG: NSR. A/P: This is a 26-year-old gentleman with extensive alcohol use history who was coming in requesting alcohol withdrawal. #Alcohol Withdrawal We will admit the patient to general medicine. Begin the patient on Clinical institute withdrawal assessment scale for alcohol protocol. IV Ativan per CIWA. In addition to the above continuous by mouth Ativan 2 mg every 6 hours. Watch out for DTs withing the first 48-72 hours. If Ativan drip is needed, may transfer to ICU. Monitor electrolytes and replete accordingly. #History of hypertension Continue Clonidine 0.1 Q6. May consider changing or the addition of Amlodipine. #Transaminits Repeat LFT in AM #History of drug use Check EKG and Troponin owing to use of cocaine in the past. #Anxiety: Hydroxyzine PRN #History of nicotine dependance: Nicotine Patch 14mg #Other: Social work consultation in a.m. Consider obtaining records from [facility]. #DVT Prophylaxis Lovenox #Full Code
[2016-09-19] MEDS ORDERED: GABAPENTIN300 M2 PO (21:05)
[2016-09-19] MEDS ORDERED: CLONIDINE HCL0.1 MG PO (21:05)
[2016-09-19] MEDS ORDERED: HYDROXYZINE PAM25 M2 PO (21:06)
[2016-09-19] MEDS ORDERED: TRAZODONE HCL50 M1 PO (21:06)
[2016-09-19] MEDS ORDERED: ADVIL200 M1 PO (21:07)
--- NOTE | 2016-09-19 21:19 | NUR ---
EVAL BY HOUSE STAFF
--- NOTE | 2016-09-19 21:41 | NUR ---
REPORT GIVEN TO FLOOR ASSIGNED TO 224 BED 2 PATIENT REMAINS ALERT ORIENTED STATES FEELING BETTER
--- NOTE | 2016-09-19 22:59 | NUR ---
PT ARRIVED TO FLOOR AT 2230 VIA STRETCHER FROM ED. PT AMBULATORY TO HOSPITAL BED, STEADY GAIT NOTED. PT A/V/OX3. ON RA. LUNGS CLEAR. SKIN INTACT. PT DENIES ANY PAIN. CIWA SCORE 10, MEDICATED PER EMAR WITH PRN IV ATIVAN. BP 172/106 P 111, WHEEL FILLER TIFFANIE NOTIFIED. TO RECHECK. AFTER ADMIN OF ATIVAN, BP 158/100, P 100. PT DENIES ANY CP, STATES HE FEELS BETTER. #20 RW 09/19/16 FLUSHING EASILY. HX OF SEIZURE WITHDRAWALS, PRECAUTIONS IN PLACE. PT EDUCATED ON USE OF CALL CARD AND STAFF. SAFETY PRECAUTIONS REMAIN.
--- NOTE | 2016-09-19 23:48 | NUR ---
REASSESSMENT OF PTS BP 158/100 MANUALLY WHILE SITTING AND PULSE 100. PT DENIES ANY CP. RESTING COMFORTABLY. SHIPPING COORDINATOR AWARE OF PTS BP & PULSE. NO NEW ORDERS. BANANA BAG INFUSING AT 125ML/HR PER EMAR. REPORT PASSED TO NEXT SHIFT RN.
--- NOTE | 2016-09-19 23:49 | NUR ---
PT TO FLOOR WITH VALUABLES BAG. CELLPHONE GIVEN TO PT, VALUABLES BAG LOCKED IN MED ROOM, NEXT SHIFT RN AWARE. PT AWARE.
[2016-09-20] VITALS (16 sets, daily range): BP systolic 138–164; BP diastolic 80–100
[2016-09-20] MEDS ORDERED: CLONIDINE HCL0.1 MG PO (02:41)
--- NOTE | 2016-09-20 04:16 | Admission Certification ---
Admission Certification Certification Statement - As attending physician, I certify that at the time of - admission, based on clinical presentation, severity of - symptoms, need for further diagnostic testing and - therapeutic interventions, and risk of adverse outcomes - without in-hospital treatment, in my clinical assessment, - this patient requires an acute hospital stay for a minimum - of two nights or longer. I have also considered psychsocial - factors such as support system, advanced age, financial - issues, cognitive issues, and failed out-patient treatments, - past re-admission history, safety of patient, and lack of - compliance as applicable. Specific rationale supporting this admission is: Alcohol withdrawal.
[2016-09-20 08:13] LABS: ABSOLUTE BASOPHIL COUNT 0 /CUMM (0.0-0.2); ABSOLUTE EOSINOPHIL COUNT 0.2 /CUMM (0.0-0.7); ABSOLUTE GRANULOCYTE CT 4.2 /CUMM (1.4-6.5); ABSOLUTE LYMPH COUNT 2.2 /CUMM (1.2-3.4); ABSOLUTE MONOCYTE COUNT 0.8 /CUMM (0.10-0.60); BASOPHIL % 0.5 % (0.0-2.0); GRANULOCYTE % 56.2 % (42.2-75.2); HEMATOCRIT 48.6 % (42-52); MEAN CORPUSCULAR HGB 29.1 PG (27.0-31.0); MEAN CORPUSCULAR HGB CONC 33.4 G/DL (33.0-37.0); MEAN CORPUSCULAR VOLUME 87.1 FL (80.0-94.0); MEAN PLATELET VOLUME 7.9 FL (7.4-10.4); PLATELET COUNT 162 /CUMM (130-400); RBC DISTRIBUTION WIDTH 15.1 % (11.5-14.5); RED BLOOD CELL CT 5.58 /CUMM (4.70-6.10); WHITE BLOOD CELL COUNT 7.5 /CUMM (4.8-10.8)
--- NOTE | 2016-09-20 08:50 | PN- Housestaff ---
Subjective Follow-up For: ALCOHOL WITHDRAWL Subjective: I saw and examined the patient today morning He is doing better, still have tremors. Reports had some night sweats and headache overnight. He is eating breakfast, declines any nausea, vomiting, diarrhea overnight. Review of Systems Constitutional: Reports: see HPI. EENTM: Reports: see HPI. Objective Last 24 Hrs of Vital Signs/I&O Vital Signs Date Time Temp Pulse Resp B/P B/P Pulse O2 O2 Flow FiO2 Mean Ox Delivery Rate 09/20 0647 98.2 88 20 138/86 96 Room Air 07/04 0600 98.2 88 20 138/86 07/04 0425 98.2 85 20 138/90 98 Room Air 07/04 0400 98.2 85 20 138/90 07/04 0304 98.9 92 20 146/98 07/04 0300 98.9 92 20 146/98 07/04 0214 98.9 88 20 146/98 95 Room Air 07/04 0200 98.9 88 20 146/98 07/04 0100 98.9 90 20 148/98 07/04 0010 98.9 92 20 150/100 95 Room Air 07/04 0000 98.9 92 20 150/100 07/03 2257 100 158/100 07/03 2234 98.0 111 20 172/106 96 Room Air 07/03 2156 98.0 90 18 154/78 07/03 2155 98.0 90 18 154/78 97 Room Air 07/03 2106 90 18 124/60 97 Room Air 07/03 2000 98.0 128 20 170/100 07/03 1836 98.0 112 18 158/86 98 Room Air 07/03 1658 98.0 116 20 154/100 07/03 1522 98 18 141/75 97 Room Air 07/03 1422 98.2 76 16 134/62 07/03 1422 98.2 76 16 134/62 99 Room Air 07/03 1355 83 07/03 1340 103 16 139/79 07/03 1340 99 Room Air 07/03 1302 103 16 139/79 98 Room Air 07/03 1232 98.3 123 16 129/92 96 Room Air Intake & Output 07/04 1600 07/04 0800 07/04 0000 Intake Total 1240 400 Output Total Balance 1240 400 Intake, IV 1000 Intake, Oral 240 400 Patient 81.647 kg Weight Physical Exam General Appearance: Alert, Oriented X3, Cooperative, No Acute Distress Skin: No Rashes, No Breakdown Skin Temp/Moisture Exam: Warm/Dry HEENT: Atraumatic, PERRLA, EOMI, Mucous Membr. moist/pink Neck: Supple, No JVD Cardiovascular: Normal S1, Normal S2 Lungs: Clear to Auscultation, Normal Air Movement Abdomen: Normal Bowel Sounds, Soft, No Tenderness Neurological: Normal Speech, Strength at 5/5 X4 Ext, Normal Tone, Sensation Intact, Cranial Nerves 3-12 NL, tremors in the upper extremities Extremities: No Clubbing, No Cyanosis, No Edema Current Medications: Current Medications Sig/Megha Start time Last Medication Dose Route Stop Time Status Admin Clonidine 0.1 MG Q6H PRN 09/20 0245 AC 09/20 PO 0304 Cyanocobalamin/ 1 BAG ONCE ONE 09/19 2199 DC 09/19 Thiamine/Pyridoxine IV 09/20 0559 2345 Dextrose/Water 1,000 ML Enoxaparin Sodium 30 MG DAILY 09/20 1000 AC SC Folic Acid 1 MG DAILY 09/20 1000 CAN PO Folic Acid 0 .STK-MED ONE 09/19 2152 DC PO Folic Acid 1 MG DAILY 09/19 2110 AC 09/19 PO 2149 Gabapentin 300 MG TID 09/20 1000 CAN PO Hydroxyzine HCl 25 MG TID PRN 09/20 0530 AC PO Lorazepam 2 MG Q6 09/20 0600 CAN IV Lorazepam 2 MG Q6 09/20 0600 AC 09/20 PO 0520 Lorazepam See Dose Q1P PRN 09/19 2115 AC 09/20 Insts (1) IV 0312 Lorazepam 0 .STK-MED ONE 09/19 2021 DC .ROUTE Lorazepam 2 MG ONCE ONE 09/19 2014 CAN PO 09/20 2015 Lorazepam 2 MG ONE ONE 09/19 2014 DC 09/19 IV 09/19 Lorazepam 2 MG ONCE ONE 09/19 1700 DC 09/19 PO 09/19 1701 1659 Lorazepam 0 .STK-MED ONE 09/19 1658 DC PO Multivitamins 1 TAB DAILY 09/19 2200 AC 09/19 PO 2149 Multivitamins 0 .STK-MED ONE 09/19 2153 DC PO Multivitamins 1 TAB DAILY 09/20 1000 CAN Therapeutic PO Nicotine 0 .STK-MED ONE 09/19 1902 DC TOP Nicotine 14 MG DAILY 09/19 1844 AC 09/19 TOP 2044 Omeprazole 20 MG DAILY AC 09/20 0700 AC 09/20 PO 0525 Ondansetron HCl 4 MG Q6 PRN 09/20 0530 AC PO Ondansetron HCl 4 MG ONCE ONE 09/19 1700 DC 09/19 PO 09/19 1701 1659 Ondansetron HCl 0 .STK-MED ONE 09/19 1658 DC PO Sodium Chloride 1,000 ML .Q10H 09/19 2115 CAN IV Sodium Chloride 1,000 ML BOLUS ONE 09/19 2014 DC 09/19 IV 09/19 Thiamine HCl 50 MG DAILY 09/20 1000 AC PO Dose Instructions: (1)Lorazepam: See Admin Criteria Last 24 Hrs of Lab/Nikos Results Last 24 Hrs of Labs/Mics: Laboratory Tests 09/20/16 0710: Anion Gap 9, Estimated GFR > 60, BUN/Creatinine Ratio 8.6, Serum Osmolality 277 L, Phosphorus 4.0, Magnesium 1.2 L, Total Bilirubin 1.1, Direct Bilirubin 0.2, AST 80 H, ALT 105 H, Alkaline Phosphatase 73, Troponin I < 0.01, Total Protein 6.8, Albumin 4.1, CBC w Diff NO MAN DIFF REQ, RBC 5.58, MCV 87.1, MCH 29.1, RDW 15.1 H, MPV 7.9, Gran % 56.2, Lymphocytes % 30.1, Monocytes % 11.2 H, Eosinophils % 2.0, Basophils % 0.5, Absolute Granulocytes 4.2, Absolute Lymphocytes 2.2, Absolute Monocytes 0.8 H, Absolute Eosinophils 0.2, Absolute Basophils 0, PUBS MCHC 33.4 09/19/16 1336: Urine Osmolality 828 09/19/16 1336: Urine Opiates Screen < 100.00, Methadone Screen < 40, Barbiturate Screen < 60, Ur Phencyclidine Scrn < 6.00, Amphetamines Screen 123, U Benzodiazepines Scrn < 85, Urine Cocaine Screen < 50, Urine Cannabis Screen 79.60 H, Urinalysis LIGHT H, Urine Color YEL, Urine Clarity CLEAR, Urine pH 6.5, Ur Specific [place] 1.025 , Urine Protein 100 H, Urine Ketones NEG, Urine Nitrite NEG, Urine Bilirubin NEG@ICTO, Urine Urobilinogen 0.2, Ur Leukocyte Esterase NEG, Ur Microscopic SEDIMENT EXAMINED, Urine RBC 1-3, Urine WBC RARE, Ur Epithelial Cells RARE, Urine Hemoglobin TRACE-LYSED H, Urine Glucose NEG 09/19/16 1310: Anion Gap 16, Estimated GFR > 60, BUN/Creatinine Ratio 15.7, Glucose 92, Calcium 9.0, Total Bilirubin 0.5, AST 100 H, ALT 122 H, Alkaline Phosphatase 84, Total Protein 7.8, Albumin 4.7, Globulin 3.1, Albumin/Globulin Ratio 1.5, Amylase 55, Lipase 223, CBC w Diff NO MAN DIFF REQ, RBC 5.77, MCV 86.0, MCH 28.9, RDW 15.1 H, MPV 7.4, Gran % 59.4, Lymphocytes % 33.1, Monocytes % 6.2, Eosinophils % 0.9, Basophils % 0.4, Absolute Granulocytes 5.6, Absolute Lymphocytes 3.1, Absolute Monocytes 0.6, Absolute Eosinophils 0.1, Absolute Basophils 0, PUBS MCHC 33.6, Serum Alcohol 374.0 Orders CIWA Score (last 24 hrs): between 3-9 in the night Assessment/Plan Assessment: Patient is a radiating 26-year-old male with past medical history significant for on-call dependence, alcohol withdrawal seizures, marijuana abuse, anxiety, depression questionable cocaine abuse, admitted for another episode of alcohol detoxification. Vitals at admission are significant for tachycardia and hypertensive with blood pressure 150/100 mmHg. Significant labs include AST/ALT 100/122, U tox positive for cannabis, H&H of 16.7/49.7. Serum alcohol level of 374 at admission. He was admitted to general medicine floor and started on CIWA protocol. The following is the patient's management Alcohol withdrawal * CIWA overnight significant for 3-9 with highest being 16 yesterday scoring for tremors, sweating, anxiety. He received a total of 9mg Ativan after admission * Banana bag given initially and then switched to folic acid/thiamine/ multivitamin * Monitor for delirium tremens/seizures --- * seizure precautions given history of alcohol-related seizures * Social work consult - may be able to see tomorrow given holiday schedule. Transaminitis * Clearly alcohol-related, ultrasound on 08/30/2016 demonstrated increased hepatic echotexture consistent with fatty infiltration and borderline hepatomegaly measuring 18 cm * AST/ALT - 100/122 --> 80/105 -- trending down * We will monitor daily LFTs * Clinically asymptomatic without any right upper quadrant pain, tolerating diet well Multiple electrolytes abnormalities * Possibly alcohol-related * Potassium 3.7 -- repleted, mag of 1.2 -- repleted * Recheck BEP Mild hyponatremia * Sodium 135 (145 at admission) * SIADH secondary to alcohol with serum osmolality of 277 and urine osmolality of 828 * Received a bag of NS after admission * We will closely monitor sodium levels for now. Thrombocytopenia * Platelet count dropped from 228 to 162 -- possibly secondary to alcohol related * Discontinued SC lovenox * continue ALPS - ambulating well DVT prophylaxis * ALPS Code status * Full Code Problem List: 1. Alcohol withdrawal seizure 2. Alcohol dependence with withdrawal 3. Hypomagnesemia 4. Hyponatremia Pain Ratin Pain Location: n/a Pain Goal: Pain 4 or less Pain Plan: tylenol prn Tomorrow's Labs & Rationales: bep to monitor electrolytes in alcoholics
--- NOTE | 2016-09-20 10:34 | PN- Att Addend ---
Attending Addendum Attending Brief Note Patient seen and examined. Agree with manager internet ret[employer] sales's note. This is a 26-year-old active smoker and history of cannabis abuse with severe alcohol withdrawal. Patient has had multiple admissions this year alone for alcohol withdrawal and detox. Most recently he was discharged in August and now comes back again. We have him on Ativan 2 mg every 6 [id number] with Ativan when necessary per ANETA and I would continue that for today. Of note he is severely hypertensive when he withdraws and he uses clonidine when necessary for the same we'll continue that but keep a low threshold to start Norvasc for blood pressure. Patient denies cocaine use and U tox is negative for cocaine that appears to be an error in his history will follow-up. Alcoholic transaminitis recent ultrasound showing fatty liver needs outpatient follow-up for the same. Thiamine, folate, multivitamins by mouth and follow closely. Social work consult in a.m.
--- NOTE | 2016-09-20 22:55 | NUR ---
PT STATES "IM FEELING SHAKY AND FEEL LIKE I'M GOING TO BLACK OUT." BP 164/92, HR 98. PT SCORING 10 ON CIWA- SEE DOCUMENTATION. GIVEN IV ATIVAN 1MG PER CIWA PROTOCOL AT 2200. WILL REASSESS AT 2300.
[2016-09-21] VITALS (9 sets, daily range): BP systolic 108–142; BP diastolic 80–88
--- NOTE | 2016-09-21 07:17 | PN- Housestaff ---
SHIRLEY VIVEROS,CINDY 09/21/16 0717: Subjective Follow-up For: Alcohol withdrawal Subjective: He received tylenol for a headache. Otherwise he slept very well. However, this morning upon waking he described dull, constant left sided chest pain that does not radiate. Review of Systems Constitutional: Denies: no symptoms. Cardiovascular: Reports: see HPI, chest pain. Respiratory: Denies: no symptoms. Gastrointestinal: Denies: see HPI. Genitourinary: Denies: no symptoms. Skin: Denies: no symptoms. Objective Last 24 Hrs of Vital Signs/I&O Vital Signs Date Time Temp Pulse Resp B/P B/P Pulse O2 O2 Flow FiO2 Mean Ox Delivery Rate 09/21 0800 98.5 85 18 138/88 / 0730 98.5 85 18 138/88 99 Room Air / 0613 97.9 69 20 142/80 98 Room Air / 0600 98.4 98 18 140/88 07/ 0400 98.4 98 18 140/88 07/05 0200 98.4 98 18 140/88 07/05 0000 140/88 07/05 0000 98.4 98 18 140/88 07/04 2301 98.4 98 18 138/94 99 Room Air 07/04 2221 98.0 92 20 164/90 95 07/04 2213 98 164/92 07/04 2200 98.4 98 18 164/92 07/04 1445 142/88 07/04 1440 97.6 98 18 160/100 97 Room Air Intake & Output / 1600 /05 0800 07/05 0000 Intake Total 120 Output Total Balance 120 Intake, Oral 120 Physical Exam General Appearance: Alert, Oriented X3, Cooperative, No Acute Distress Cardiovascular: Regular Rate, Normal S1, Normal S2, No Murmurs Lungs: Clear to Auscultation Abdomen: Normal Bowel Sounds, Soft, No Tenderness, No Masses Neurological: Normal Speech Extremities: No Edema Current Medications: Current Medications Sig/Megha Start time Last Medication Dose Route Stop Time Status Admin Acetaminophen 650 MG Q8P PRN 09/21 0815 AC PO Acetaminophen 500 MG ONCE ONE 09/20 2345 CAN PO 09/20 2346 Acetaminophen 650 MG ONCE ONE 09/20 2345 DC 09/20 PO 09/20 2346 2354 Clonidine 0.1 MG Q6H PRN 09/20 0245 AC 09/20 PO 2213 Folic Acid 1 MG DAILY 09/19 2110 AC 09/21 PO 0909 Hydroxyzine HCl 25 MG TID PRN 09/20 0530 AC PO Lorazepam 1.5 MG Q6 09/21 1200 AC 09/21 PO 1123 Lorazepam 2 MG Q6 09/20 0600 DC 09/21 PO 0556 Lorazepam See Dose Q1P PRN 09/19 2115 AC 09/20 Insts (1) IV 2200 Magnesium Chloride 64 MG BID 09/20 1000 DC 09/20 PO 09/20 2201 2200 Multivitamins 1 TAB DAILY 09/19 2200 AC 09/21 PO 0909 Nicotine 14 MG DAILY 09/19 1844 AC 09/21 TOP 0909 Omeprazole 20 MG DAILY AC 09/20 0700 AC 09/21 PO 0557 Ondansetron HCl 4 MG Q6 PRN 09/20 0530 AC 09/20 PO 1422 Thiamine HCl 50 MG DAILY 09/20 1000 AC 09/21 PO 0909 Dose Instructions: (1)Lorazepam: See Admin Criteria Last 24 Hrs of Lab/Nikos Results Last 24 Hrs of Labs/Mics: Laboratory Tests 09/21/16 0648: Anion Gap 11, Estimated GFR > 60, BUN/Creatinine Ratio 10.0, Magnesium 1.9 Assessment/Plan Assessment: Patient is a radiating 26-year-old male with past medical history significant for multiple alcohol detoxes recently with history of withdrawal seizures, marijuana use, anxiety, depression questionable cocaine abuse, admitted for another episode of alcohol detoxification. Vitals at admission are significant for tachycardia and hypertensive with blood pressure 150/100 mmHg. Significant labs include AST/ALT 100/122, U tox positive for cannabis, H&H of 16.7/49.7. Serum alcohol level of 374 at admission. He was admitted to general medicine floor and started on CIWA protocol. His CIWA was 0 this morning, highest level was 10. We will begin tapering the ativan. #Chest pain: Sounds epigastric, more like reflux. He has an extensive smoking history and potential cocaine use history though. EKG was normal, consistent with prior. -Continue to monitor. -Consider tums for potential reflux Alcohol withdrawal -CIWA overnight significant for 0 with highest being 10 yesterday scoring for tremors, sweating, and anxeity. -Ativan 1.5mg Q6H today. Ativan 1.5mg Q12H tomorrow if CIWA remains under control. -Continue prn Ativan per CIWA -Social work consult Transaminitis Clearly alcohol-related, ultrasound on 08/30/2016 demonstrated increased hepatic echotexture consistent with fatty infiltration and borderline hepatomegaly measuring 18 cm -AST/ALT - 100/122 --> 80/105 -- trending down -We will monitor daily LFTs -Clinically asymptomatic without any right upper quadrant pain, tolerating diet well Multiple electrolytes abnormalities -Possibly alcohol-related. Repleted Mg and K, now resovled. Mild hyponatremia - resolved DVT prophylaxis -ALPS Code status Full Code Problem List: 1. Alcohol dependence with withdrawal 2. Hypomagnesemia Pain Ratin Pain Location: No pain Pain Goal: Remain pain free Pain Plan: Tylenol Tomorrow's Labs & Rationales: CBC, BEP, LFTs Discharge Plan Anticipated Discharge (Day): tomorrow VINI LIIRANO MD 09/21/16 1252: Attending MD Review Statement Attending Statement Attending MD Statement: examined this patient, discuss w/resident/PA/CHEMICAL LABORATORY ASSISTANT, agreed w/resident/PA/CHEMICAL LABORATORY ASSISTANT, reviewed EMR data (avail) Attending Assessment/Plan: Patient doing well with CIWA scores under control. Mg 1.2 yesterday, today's pending. Labs and exam otherwise unremarkable. 1. Alcohol withdrawal delirium 2. Hypomagnesemia Plan - Continue Ativan 1.5mg q6h today - Decrease Ativan to 1.5mg q12h tomorrow if CIWA remains under control - Continue PRN Ativan - Replete magnesium - Continue home medications and vitamin supplementation - Social work consult - DVT PPx
--- NOTE | 2016-09-21 09:11 | NUR ---
7:20- PT COMPLAINING OF L SIDE CHEST PAIN AND EPIGASTRIC PAIN 07/27. VS: T 98.5, P 85, R 18, B/P 138/88, 99% ON RA. SUDDEN ONSET. PT STATES HE HAS NEVER EXPERIENCED BEFORE. FIELD RECORDER DR. CINDY WATSON PAGED AND TO ASSESS PT AT BEDSIDE. STAT EKG ORDERED.
--- NOTE | 2016-09-21 10:20 | NUR ---
0930- EKG REVIEWED BY DR. WATSON. DR. ZAYAS AWARE OF SYPTOMS AT MORNING ROUNDS. NO NEW ORDERS AT THIS TIME. PT STATES CHEST PAIN HAS RESOLVED.
--- NOTE | 2016-09-21 15:51 | NUR ---
Sw referral from MD Bev received electronically for Eval- ETOH withdrawal on 09/19 and from MD Bebe on 09/21 for multiple recent ETOH detox. Sw to pt room finds him alert and oriented in his bed. Pt signed release for [facility] and [facility] ( parents told him not to go their bc come out Worse). Pt has his father's insurance throught [employer]. Pt is a 26 y.o. s/w/male who comes to [place] to Detox again. Pt reports he drank after discharge and then could not tolerate stopping so drank again so he could get himself to ED. Pt reports he has been drinking for about 4 years and now drinks about 1 liter of zoraida Beam 80 proof a day. Pt reports his first detox was apr 19, 2016 whwn he went to [facility] after falling ill at work. Pt reports dx with ETOH withdrawal and dehydration and seizure. Pt smoking 1 and 1/2 pack of cigarettes daily. Pt denies follow up care. Pt then had detox at [place] with follow up at [facility]. he reports he did the intake appointment but started drinking before program began. Pt soon needed another detox which he got at [place] and was discharged to [facility]. Pt particiapted in programs for 7 days until about June 01 when he got fruatrated qwith rules and some of the other clients. "this iris called me fat." Pt then had another detox here and reports he discharged and went to work 10 hours a day. 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 Pt with a younger brother who pt feels "gets things he did not." Pt brother was able to drive at 18 but pt still does not have family support to drive. Pt reports his uncle was an ETOH user with a problem 20 years ago. Pt reports he tried AA for 2 weeks but that was enough. Pt having a very difficult time staying sober. Pt reports he needs a 30 day program that i can make it through. sw provided suport and encoAurgement and reminded pt his insurance will not be available for ever so he should work hard. Pt not fully aware that his parents may have been billed for some of his stay. Sw to fax to [facility] to start. sw available upon request.
[2016-09-22] VITALS (7 sets, daily range): BP systolic 108–138; BP diastolic 82–98
--- NOTE | 2016-09-22 06:50 | PN- Housestaff ---
See Addendum Subjective Follow-up For: EtOH withdrawal Subjective: Today he is feeling all right. He had difficulty falling asleep last night. He is complaining of lower back pain. He describes it as a dull pain that does not radiate. He gets worse with movement. He mentions that he injured his back a year and a half ago. It has bothered him ever since intermittently. He no longer has chest pain. Review of Systems Constitutional: Reports: no symptoms. Cardiovascular: Denies: no symptoms. Respiratory: Denies: no symptoms. Gastrointestinal: Denies: no symptoms. Genitourinary: Denies: no symptoms. Musculoskeletal: Reports: no symptoms. Objective Last 24 Hrs of Vital Signs/I&O Vital Signs Date Time Temp Pulse Resp B/P B/P Pulse O2 O2 Flow FiO2 Mean Ox Delivery Rate 09/22 0649 98.5 93 18 138/90 96 Room Air 09/22 0600 98.8 113 18 108/82 / 0400 98.8 113 18 108/82 / 0200 98.8 113 18 108/82 07/06 0000 98.8 113 18 108/82 07/05 2256 113 / 2232 98.8 113 20 108/82 97 Room Air / 1504 99.0 114 16 140/88 98 Intake & Output 09/22 1600 09/22 0800 09/22 0000 Intake Total 300 Output Total Balance 300 Intake, IV 20 Intake, Oral 280 Physical Exam General Appearance: Alert, Oriented X3, Cooperative, No Acute Distress Cardiovascular: Regular Rate, Normal S1, Normal S2 Lungs: Clear to Auscultation Abdomen: Normal Bowel Sounds, Soft, No Tenderness Extremities: No Edema Other Physical Findings: Paraspinal tenderness to palpation lower back. Current Medications: Current Medications Sig/Megha Start time Last Medication Dose Route Stop Time Status Admin Acetaminophen 650 MG Q8P PRN 09/21 0815 DC 09/22 PO 0804 Clonidine 0.1 MG Q6H PRN 09/20 0245 AC 09/20 PO 2213 Folic Acid 1 MG DAILY 09/19 2110 AC 09/22 PO 0951 Hydroxyzine HCl 25 MG TID PRN 09/20 0530 AC 09/22 PO 0035 Ibuprofen 600 MG 4 TIMES/DAY PRN 09/22 1015 AC PO Lorazepam 1 MG Q6 09/22 1200 AC 09/22 PO 1155 Lorazepam 1.5 MG Q6 09/21 1200 DC 09/22 PO 0533 Lorazepam See Dose Q1P PRN 09/19 2115 AC 09/21 Insts (1) IV 1906 Multivitamins 1 TAB DAILY 09/19 2200 AC 09/22 PO 0951 Nicotine 14 MG DAILY 09/19 1844 AC 09/22 TOP 0951 Omeprazole 20 MG DAILY AC 09/20 0700 AC 09/22 PO 0535 Ondansetron HCl 4 MG Q6 PRN 09/20 0530 AC 09/20 PO 1422 Thiamine HCl 50 MG DAILY 09/20 1000 AC 09/22 PO 0951 Dose Instructions: (1)Lorazepam: See Admin Criteria Last 24 Hrs of Lab/Nikos Results Last 24 Hrs of Labs/Mics: Laboratory Tests 09/22/16 115: Total Bilirubin Pending, Direct Bilirubin Pending, AST Pending, ALT Pending, Alkaline Phosphatase Pending, Total Protein Pending, Albumin Pending 09/22/16 0628: Anion Gap 12, Estimated GFR > 60, BUN/Creatinine Ratio 15.0, Total Bilirubin 1.2 , Direct Bilirubin 0.3, AST 245 H, ALT 224 H, Alkaline Phosphatase 79, Total Protein 7.8, Albumin 4.7, Amylase 69, Lipase 205, CBC w Diff NO MAN DIFF REQ, RBC 6.06, MCV 86.8, MCH 29.5, RDW 14.4, MPV 8.5, Gran % 67.3, Lymphocytes % 22.2 , Monocytes % 7.9, Eosinophils % 2.2, Basophils % 0.4, Absolute Granulocytes 8.1 H, Absolute Lymphocytes 2.7, Absolute Monocytes 1.0 H, Absolute Eosinophils 0.3, Absolute Basophils 0.1, PUBS MCHC 33.9 Microbiology 09/22 115 BLOOD: Blood Culture - RECD 09/22 1150 BLOOD: Blood Culture - RECD 09/22 1038 URINE ROUT: Urine Culture - COLB Orders CIWA Score (last 24 hrs): CIWA this morning was 4. His highest in the past 24 hours 11. He scoring for tremors and anxiety agitation Assessment/Plan Assessment: Patient is a radiating 26-year-old male with past medical history significant for multiple alcohol detoxes recently with history of withdrawal seizures, marijuana use, anxiety, depression questionable cocaine abuse, admitted for another episode of alcohol detoxification. Vitals at admission are significant for tachycardia and hypertensive with blood pressure 150/100 mmHg. Significant labs include AST/ALT 100/122, U tox positive for cannabis, H&H of 16.7/49.7. Serum alcohol level of 374 at admission. He was admitted to general medicine floor and started on CIWA protocol. His CIWA was 4 this morning, highest level was 1 1. We will begin tapering the ativan. #Transaminitis: Ultrasound on 08/30/2016 demonstrated increased hepatic echotexture consistent with fatty infiltration and borderline hepatomegaly measuring 18 cm. His AST and ALT were trending down but today they have gone up. His AST went from 80-245 and his ALT went from 105-224. Additionally his white blood cell count has gone from 7.5-12.1. He has remained afebrile. He was intermittently tachycardic last night to 113. His other vital signs remained stable. It is unclear what the etiology of this is. On the differential includes alcoholic or viral hepatitis versus pancreatitis versus toxins versus infection. -We will monitor daily LFTs -abdominal ultrasound -hepatitis labs -coagulation panel -HIV and U tox -blood culture and urine culture -Amylase and lipase -4 PM BEP #Chest pain: He no longer has chest pain. EKG was normal, consistent with prior. -Continue to monitor. #Lower back pain: He is described lower back pain that is bothering him. It sounds musculoskeletal. Might be related to the trauma he experienced one half years ago. -Ibuprofen -Ice #Alcohol withdrawal -CIWA the night was highest 11 this morning was 4. We will taper the lorazepam. -Ativan 1mg Q6H today. -Continue prn Ativan per CIWA -Social work consult DVT prophylaxis -ALPS Code status Full Code Problem List: 1. Transaminitis 2. Alcohol withdrawal Pain Ratin Pain Location: Lower back Pain Goal: Remain pain free Pain Plan: mary ann Tomorrow's Labs & Rationales: CBC, BEP, LFTs, Coags
[2016-09-22 08:27] LABS: ABSOLUTE BASOPHIL COUNT 0.1 /CUMM (0.0-0.2); ABSOLUTE EOSINOPHIL COUNT 0.3 /CUMM (0.0-0.7); ABSOLUTE GRANULOCYTE CT 8.1 /CUMM (1.4-6.5); ABSOLUTE LYMPH COUNT 2.7 /CUMM (1.2-3.4); BASOPHIL % 0.4 % (0.0-2.0); EOSINOPHIL % 2.2 % (0-5); GRANULOCYTE % 67.3 % (42.2-75.2); HEMATOCRIT 52.6 % (42-52); MEAN CORPUSCULAR HGB 29.5 PG (27.0-31.0); MEAN CORPUSCULAR HGB CONC 33.9 G/DL (33.0-37.0); MEAN CORPUSCULAR VOLUME 86.8 FL (80.0-94.0); MEAN PLATELET VOLUME 8.5 FL (7.4-10.4); PLATELET COUNT 153 /CUMM (130-400); RBC DISTRIBUTION WIDTH 14.4 % (11.5-14.5); RED BLOOD CELL CT 6.06 /CUMM (4.70-6.10)
[2016-09-22 09:24] LABS: WHITE BLOOD CELL COUNT 12.1 /CUMM (4.8-10.8)
--- NOTE | 2016-09-22 16:31 | ULTRASOUND REPORT ---
EXAMINATION: US ABDOMEN COMPLETE CLINICAL INFORMATION: Increased LFTs. Leukocytosis.. COMPARISON: 08/30/2016 TECHNIQUE: Real-time imaging of the abdominal viscera. FINDINGS: PANCREAS: The pancreatic head and body are unremarkable. The tail is obscured by gas. ABDOMINAL AORTA: The proximal segment is normal in caliber. INFERIOR VENA CAVA: Visualized portions are normal. LIVER: The liver is mildly enlarged, measuring 19 cm in CC dimension. The liver demonstrates normal contour and echogenicity. No focal lesion or intrahepatic biliary duct dilatation. GALLBLADDER: Normal. The gallbladder is partially contracted without evidence of stones, sludge, polyps, wall thickening or pericholecystic fluid. COMMON BILE DUCT: Normal in caliber measuring 0.3 cm in diameter. RIGHT KIDNEY: Normal. No hydronephrosis. No renal calculi or focal parenchymal lesions. The kidney measures 10 cm in maximum dimension. LEFT KIDNEY: Normal. No hydronephrosis. No renal calculi or focal parenchymal lesions. The kidney measures 10.2 cm in maximum dimension. SPLEEN: Normal. The spleen measures 10.6 cm in maximum dimension. FREE FLUID: None. IMPRESSION: Mild hepatomegaly. Otherwise unremarkable study.
[2016-09-22 17:02] LABS: PT 11.2 SEC (9.4-12.5)
[2016-09-23 06:45] VITALS: BP 132/80
--- NOTE | 2016-09-23 07:02 | PN- Housestaff ---
See Addendum Subjective Follow-up For: Alcohol withdrawal Subjective: He is feeling well this morning. He slept well. He was anxious about his HIV test. This was negative so he feels better. His back pain is improved. No other complaints. Review of Systems Constitutional: Denies: no symptoms. Cardiovascular: Denies: no symptoms. Respiratory: Denies: no symptoms. Gastrointestinal: Denies: no symptoms. Genitourinary: Denies: no symptoms. Musculoskeletal: Denies: no symptoms. Objective Last 24 Hrs of Vital Signs/I&O Vital Signs Date Time Temp Pulse Resp B/P B/P Pulse O2 O2 Flow FiO2 Mean Ox Delivery Rate 09/23 08 Room Air 09/23 0645 97.6 84 18 132/80 98 09/22 2208 99.1 105 20 118/98 97 Room Air 09/22 1439 98.0 100 20 132/90 95 Room Air Intake & Output 09/23 1600 09/23 0800 09/23 0000 Intake Total 190 291 Output Total Balance 190 291 Intake, IV 10 11 Intake, Oral 180 280 Patient 180 lb Weight Physical Exam General Appearance: Alert, Oriented X3, Cooperative, No Acute Distress Cardiovascular: Regular Rate, Normal S1, Normal S2 Lungs: Clear to Auscultation, Normal Air Movement Abdomen: Normal Bowel Sounds, Soft, No Tenderness, No Masses Neurological: Normal Speech Extremities: No Edema Current Medications: Current Medications Sig/Megha Start time Last Medication Dose Route Stop Time Status Admin Clonidine 0.1 MG Q6H PRN 09/20 0245 AC 09/20 PO 2213 Folic Acid 1 MG DAILY 09/19 2110 AC 09/23 PO 0911 Hydroxyzine HCl 25 MG TID PRN 09/20 0530 AC 09/22 PO 2205 Ibuprofen 600 MG 4 TIMES/DAY PRN 09/22 1015 AC PO Lorazepam 1 MG Q8 09/23 1400 DC PO Lorazepam 1 MG Q12 09/23 1000 AC PO Lorazepam 1 MG Q6 09/22 1200 DC 09/23 PO 0629 Lorazepam See Dose Q1P PRN 09/19 2115 AC 09/22 Insts (1) IV 1619 Multivitamins 1 TAB DAILY 09/19 2200 AC 09/23 PO 0911 Nicotine 14 MG DAILY 09/19 1844 AC 09/23 TOP 0911 Omeprazole 20 MG DAILY AC 09/20 0700 AC 09/23 PO 0629 Ondansetron HCl 4 MG Q6 PRN 09/20 0530 09/20 PO 1422 Thiamine HCl 50 MG DAILY 09/20 1000 09/23 PO 0911 Dose Instructions: (1)Lorazepam: See Admin Criteria Last 24 Hrs of Lab/Nikos Results Last 24 Hrs of Labs/Mics: Laboratory Tests 09/23/16 0907: PT 11.7, INR 1.12 09/23/16 0639: Anion Gap 14, Estimated GFR > 60, BUN/Creatinine Ratio 21.4, Total Bilirubin 1.3 , Direct Bilirubin 0.5 H, AST 239 H, ALT 286 H, Alkaline Phosphatase 76, Total Protein 8.1, Albumin 4.7, CBC w Diff NO MAN DIFF REQ, RBC 6.14 H, MCV 88.4, MCH 29.3, RDW 14.6 H, MPV 8.4, Gran % 62.8, Lymphocytes % 24.9, Monocytes % 9.5 H, Eosinophils % 2.4, Basophils % 0.4, Absolute Granulocytes 8.5 H, Absolute Lymphocytes 3.4, Absolute Monocytes 1.3 H, Absolute Eosinophils 0.3, Absolute Basophils 0.1, PUBS MCHC 33.1 09/22/16 1604: Anion Gap 15, Estimated GFR > 60, BUN/Creatinine Ratio 25.0, Total Bilirubin 1.0 , Direct Bilirubin 0.4, AST 272 H, ALT 276 H, Alkaline Phosphatase 81, Total Protein 8.7 H, Albumin 5.0, Amylase 86, Lipase 335 H, PT 11.2, INR 1.07 09/22/16 1210: Urine Color YEL, Urine Clarity CLEAR, Urine pH 6.0, Ur Specific [place] 1.020, Urine Protein 30 H, Urine Ketones NEG, Urine Nitrite NEG, Urine Bilirubin NEG, Urine Urobilinogen 0.2, Ur Leukocyte Esterase NEG, Ur Microscopic SEDIMENT EXAMINED, Urine RBC 1-3, Urine WBC 1-3 H, Ur Epithelial Cells RARE, Urine Bacteria FEW H, Urine Hemoglobin TRACE-LYSED H, Urine Glucose NEG 09/22/16 1150: Total Bilirubin 1.0, Direct Bilirubin 0.2, AST 246 H, ALT 239 H, Alkaline Phosphatase 75, Total Protein 7.1, Albumin 4.3, Hepatitis A IgM Ab NONREACTIVE, Hep Bs Antigen NONREACTIVE, Hep B Core IgM Ab Conf NONREACTIVE, Hepatitis C Antibody NONREACTIVE, HIV 1&2 Ab Western Blot NONREACTIVE Microbiology 09/22 1410 BLOOD: Blood Culture - RECD 09/22 1210 URINE ROUT: Urine Culture - RES 09/22 1150 BLOOD: Blood Culture - CAN Cancelled: Quantity not sufficient for both blood culture bottles. 09/22 1150 BLOOD: Blood Culture - RECD Orders CIWA Score (last 24 hrs): CIWA this morning was 0. Highest in the last 24 hours is 9. He scoring for tremor and anxiety. Radiology Findings: Abdominal ultrasound performed on 09/22/2016 shows mild hepatosplenomegaly but otherwise unremarkable. Assessment/Plan Assessment: Mr. Gonsalez is a 26-year-old male with past medical history significant for multiple alcohol detoxes recently with history of withdrawal seizures, marijuana use, anxiety, depression questionable cocaine abuse, admitted for another episode of alcohol detoxification. Vitals at admission are significant for tachycardia and hypertensive with blood pressure 150/100 mmHg. Significant labs include AST/ALT 100/122, U tox positive for cannabis, H&H of 16.7/49.7. Serum alcohol level of 374 at admission. He was admitted to general medicine floor and started on CIWA protocol. On 09/21/2016 he reported chest pain. EKG was normal, consistent with prior. On 09/22/2016 he reported back pain. It was found to be musculoskeletal. It improved on ibuprofen. We have been tapering Ativan and he continues to feel well. Medically he is much improved and ready for discharge. We'll see whether he can go to rehabilitation or home today. #Transaminitis: Unclear etiology. On the differential includes alcoholic or viral hepatitis versus pancreatitis versus toxins versus infection. Despite the labs, he continues to feel well and improve. He has no nausea vomiting or any tenderness in the abdomen. His appetite is good and he is eating well. Because clinically he looks well we are not concerned at this time. -Follow up hepatitis labs #Chest pain: He no longer has chest pain. EKG was normal, consistent with prior. -Continue to monitor. #Lower back pain: He is described lower back pain that is bothering him. It sounds musculoskeletal. Might be related to the trauma he experienced one half years ago. -Ibuprofen #Alcohol withdrawal -CIWA the night was highest 11 this morning was 4. We will taper the lorazepam. -Ativan 1mg Q12H today. -Continue prn Ativan per CIWA -Social work consult DVT prophylaxis -ALPS Code status Full Code Problem List: 1. Alcohol withdrawal 2. Transaminitis Pain Ratin Pain Location: No pain Pain Goal: Remain pain free Pain Plan: Ibuprofen Tomorrow's Labs & Rationales: None
[2016-09-23 08:21] LABS: ABSOLUTE BASOPHIL COUNT 0.1 /CUMM (0.0-0.2); ABSOLUTE EOSINOPHIL COUNT 0.3 /CUMM (0.0-0.7); ABSOLUTE GRANULOCYTE CT 8.5 /CUMM (1.4-6.5); ABSOLUTE LYMPH COUNT 3.4 /CUMM (1.2-3.4); ABSOLUTE MONOCYTE COUNT 1.3 /CUMM (0.10-0.60); BASOPHIL % 0.4 % (0.0-2.0); EOSINOPHIL % 2.4 % (0-5); GRANULOCYTE % 62.8 % (42.2-75.2); HEMATOCRIT 54.2 % (42-52); MEAN CORPUSCULAR HGB 29.3 PG (27.0-31.0); MEAN CORPUSCULAR HGB CONC 33.1 G/DL (33.0-37.0); MEAN CORPUSCULAR VOLUME 88.4 FL (80.0-94.0); MEAN PLATELET VOLUME 8.4 FL (7.4-10.4); PLATELET COUNT 164 /CUMM (130-400); RBC DISTRIBUTION WIDTH 14.6 % (11.5-14.5); RED BLOOD CELL CT 6.14 /CUMM (4.70-6.10); WHITE BLOOD CELL COUNT 13.6 /CUMM (4.8-10.8)
[2016-09-23 09:31] LABS: PT 11.7 SEC (9.4-12.5)
--- NOTE | 2016-09-23 09:54 | NUR ---
PATIENT ATIVAN TAPER BEING CHANGED TO Q 12 HOUR, LIKELY D/C LATER, MARISELA VENEGAS SAW PATIENT TO DISCUSS FOLLOW UP OPTIONS, PATIENT CURRENTLY DECIDING DECISION WILL BE MADE, AND D/C PLAN WILL FORM FROM THERE.
--- NOTE | 2016-09-23 10:17 | Cons- Psychiatry ---
Psychiatric Consult Date of Consult: 09/23/16 Reason for Consult: "ETOH detox, outpatient therapy" History of Present Illness: Identifying Info: 26-year-old single male presents to [facility] ED on 09/19/16 requesting ETOH detox. Admitted to medicine for detox due to h/o Sz. CC: "Just people, places, and things." HPI: Patient discharged from detox at [facility] approximately 3 weeks ago. He states he remained sober for 2 days and then he began drinking again. He was again consuming approximately 1 L of Rizwan Beam bourbon daily. On last admission discussed medications for alcohol cravings with this patient which today he is willing to try discussed risks and benefits of disulfiram, Campral, and naltrexone. He feels Campral would be most appropriate for him and this grant writer agrees given his LFTs He is agreeable to residential ETOH tx and would like a 30 day program. However he would be agreeable to IOP if he is unable to procure a bed. Social work has been working with this patient for placement. No psychiatric complaints today beyond anxiety due to uncertainty about his future. He reports he will be pursuing a new job and new place to live as his previous boss who lives with enbled his drinking. PMH: Please see the H&P for a complete listing EtOH withdrawal seizures Past Psych History: h/o MDD vs ADHD dx -Outpatient Saw therapist & MD as a teen, prescribed adderall -Inpatient None Family Psych History: None Substance History Alcohol use d/o, severe Cannabis Use Disorder, Moderate Current everyday smoker -Treatment 3 detoxes since 04/2016 at [facility], 08/2016 at [facility] Brief stay at [facility] in 04/2016 states "was kicked out after 15 days because someone called me fat" IOP intake appointment at [facility] on 05/12/16, did not f/u Family Substance History: Uncle ETOH Social: Raised in an intact family with one younger brother in [place]. 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 No legal issues. Abuse/Trauma: Denies Current Home Psychotropic Medications: None at present Current Hospital Psychotropic Medications: Med Clonidine 0.1 MG PO Q6H PRN 09/20/16 0245 Hydroxyzine HCl 25 MG PO TID PRN 09/20/16 0530 Lorazepam IV Q1P PRN 09/19/16 2115 Lorazepam 1 MG PO Q12 09/23/16 1000 Allergies: Coded Allergies: No Known Allergies (05/06/16) Current Medications: Current Medications Sig/Megha Start time Last Medication Dose Route Stop Time Status Admin Clonidine 0.1 MG Q6H PRN 09/20 0245 AC 09/20 PO 2213 Folic Acid 1 MG DAILY 09/19 2110 AC 09/23 PO 0911 Hydroxyzine HCl 25 MG TID PRN 09/20 0530 AC 09/22 PO 2205 Ibuprofen 600 MG 4 TIMES/DAY PRN 09/22 1015 AC PO Lorazepam 1 MG Q8 09/23 1400 DC PO Lorazepam 1 MG Q12 09/23 1000 AC PO Lorazepam 1 MG Q6 09/22 1200 DC 09/23 PO 0629 Lorazepam See Dose Q1P PRN 09/19 2115 AC 09/22 Insts (1) IV 1619 Multivitamins 1 TAB DAILY 09/19 2200 AC 09/23 PO 0911 Nicotine 14 MG DAILY 09/19 1844 AC 09/23 TOP 0911 Omeprazole 20 MG DAILY AC 09/20 0700 AC 09/23 PO 0629 Ondansetron HCl 4 MG Q6 PRN 09/20 0530 AC 09/20 PO 1422 Thiamine HCl 50 MG DAILY 09/20 1000 AC 09/23 PO 0911 Dose Instructions: (1)Lorazepam: See Admin Criteria Past History Past Medical History Neurological: alcohol withdrawal seizures EENT: NONE Cardiovascular: NONE Respiratory: NONE Gastrointestinal: NONE Hepatic: NONE Renal: NONE Musculoskeletal: NONE Psychiatric: alcohol dependence, depression, ADD at 20 years of age, currently not on treatment. 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 Past Surgical History Surgical History: wisdom teeth extraction Psychosocial History Strengths/Capabilities: motivated toward sobriety and willing to accept tx Physical Limitations (Interventions): Chronic pattern of relapse Psychiatric Treatment History Psych Treatment Psychiatric Treatment Yes (as above) Diagnosis: Alcohol Use disorder, severe Risk Factors: age (under 24/over 65), SA/MH hospitalized, substance abuse, male Substance Use/Abuse History Drug Use/Abuse Substances Used/Abused Yes (as above) Substance Abuse Treatment Substance Abuse Treatment Past Substance Abuse [place] Yes (as above) Assessment/Plan Mental Status Mental Status Exam: Mental Status Exam Presentation/Appearance: Cooperative with evaluation. Hospital garb. Orientation: x4 Sensorium: Awake and alert Eye contact: Appropriate Affect: Somewhat blunted but congruent with stated mood Mood: "As best as it could be" Depression: Denies Anxiety: Mild r/t uncertantiy about the future Thought Content: - Denies SI/HI, AH/VH, PI. States and also believes they will not kill themselves. - Denies Hopeless/Helpless Thoughts Thought Process: Linear Associations: Appropriate Speech: WNL Judgment: Intact Insight: Intact Cognition: Memory: Grossly intact Attention/Concentration: Endorses some deficits but appears intact Fund of Knowledge: Adequate Abstractions:Did not complete MMSE: Did not complete Brief ROS Gait: Steady Sleep: Adequate Appetite: Adequate Energy: Fair IADLs/ADLs: Independent Lab Results: Laboratory Tests 09/23/16 0907: PT 11.7, INR 1.12 09/23/16 0639: Sodium Pending, Potassium Pending, Chloride Pending, Carbon Dioxide Pending, Anion Gap Pending, BUN Pending, Creatinine Pending, BUN/Creatinine Ratio Pending , Total Bilirubin Pending, Direct Bilirubin Pending, AST Pending, ALT Pending, Alkaline Phosphatase Pending, Total Protein Pending, Albumin Pending, CBC w Diff NO MAN DIFF REQ, RBC 6.14 H, MCV 88.4, MCH 29.3, RDW 14.6 H, MPV 8.4, Gran % 62.8, Lymphocytes % 24.9, Monocytes % 9.5 H, Eosinophils % 2.4, Basophils % 0.4 , Absolute Granulocytes 8.5 H, Absolute Lymphocytes 3.4, Absolute Monocytes 1.3 H, Absolute Eosinophils 0.3, Absolute Basophils 0.1, PUBS MCHC 33.1 09/22/16 1604: Anion Gap 15, Estimated GFR > 60, BUN/Creatinine Ratio 25.0, Total Bilirubin 1.0 , Direct Bilirubin 0.4, AST 272 H, ALT 276 H, Alkaline Phosphatase 81, Total Protein 8.7 H, Albumin 5.0, Amylase 86, Lipase 335 H, PT 11.2, INR 1.07 09/22/16 1210: Urine Color YEL, Urine Clarity CLEAR, Urine pH 6.0, Ur Specific [place] 1.020, Urine Protein 30 H, Urine Ketones NEG, Urine Nitrite NEG, Urine Bilirubin NEG, Urine Urobilinogen 0.2, Ur Leukocyte Esterase NEG, Ur Microscopic SEDIMENT EXAMINED, Urine RBC 1-3, Urine WBC 1-3 H, Ur Epithelial Cells RARE, Urine Bacteria FEW H, Urine Hemoglobin TRACE-LYSED H, Urine Glucose NEG 09/22/16 1150: Total Bilirubin 1.0, Direct Bilirubin 0.2, AST 246 H, ALT 239 H, Alkaline Phosphatase 75, Total Protein 7.1, Albumin 4.3, Hepatitis A IgM Ab NONREACTIVE, Hep Bs Antigen NONREACTIVE, Hep B Core IgM Ab Conf NONREACTIVE, Hepatitis C Antibody NONREACTIVE, HIV 1&2 Ab Western Blot NONREACTIVE 09/22/16 0628: Anion Gap 12, Estimated GFR > 60, BUN/Creatinine Ratio 15.0, Total Bilirubin 1.2 , Direct Bilirubin 0.3, AST 245 H, ALT 224 H, Alkaline Phosphatase 79, Total Protein 7.8, Albumin 4.7, Amylase 69, Lipase 205, CBC w Diff NO MAN DIFF REQ, RBC 6.06, MCV 86.8, MCH 29.5, RDW 14.4, MPV 8.5, Gran % 67.3, Lymphocytes % 22.2 , Monocytes % 7.9, Eosinophils % 2.2, Basophils % 0.4, Absolute Granulocytes 8.1 H, Absolute Lymphocytes 2.7, Absolute Monocytes 1.0 H, Absolute Eosinophils 0.3, Absolute Basophils 0.1, PUBS MCHC 33.9 09/21/16 0648: Anion Gap 11, Estimated GFR > 60, BUN/Creatinine Ratio 10.0, Magnesium 1.9 Microbiology 09/22 1410 BLOOD: Blood Culture - RECD 09/22 1210 URINE ROUT: Urine Culture - RES 09/22 115 BLOOD: Blood Culture - CAN Cancelled: Quantity not sufficient for both blood culture bottles. 09/22 115 BLOOD: Blood Culture - RECD Diffential Diagnosis: Alcohol use disorder severe Impression: 26-year-old single male presents requesting alcohol detox. This is his third such admission since April of this year. He would greatly benefit from residential treatment or at a minimum intensive outpatient treatment as well as medication for alcohol cravings which she is agreeable today. Provisional Treatment Plan: 1. Patient provided with educational materials on Campral and naltrexone oral and IM formulations. 2. Please start Campral 666 mg by mouth 3 times a day now and discharge patient on this medication as long as appropriate follow-up was secured. 3. Appreciate social work assistance for disposition planning. If residential treatment cannot be secured IOP would be second choice. Thank you for including psychiatry in this case we'll continue to follow until discharge.
[2016-09-23 13:53] VITALS: BP 140/90
--- NOTE | 2016-09-23 14:06 | NUR ---
PATIENT ALERT AND ORIENTED X 3. ASSUMED PT CARE AT 1100. PAT IN NO APPARENT DISTRESS. CIWA AT 0. OOB INDEPENDENTLY. RANCH HAND SUPERVISOR NOEL IN TO SEE PATIENT. CALL LIGHT WITHIN REACH. WILL CONTINUE TO MONITOR.
--- NOTE | 2016-09-23 15:34 | Patient Discharge Instructions ---
Discharge Instructions General Discharge Information You were seen/treated for: Alcohol detox Watch for these problems: Feevrs, chills, seizure like activity Special Instructions: YOu are being set up with an IOP follow up. Please continue to take all medications as directed and abstain from alcohol use Diet Continue normal diet: Yes Activity Full Activity/No Limits: Yes Acute Coronary Syndrome Inclusion Criteria At DC or during hospital stay patient has or had the following: ACS DIAGNOSIS No Discharge Core Measures Meds if any: Prescribed or Continued at Discharge Meds if any: NOT Prescribed or Continued at Discharge Congestive Heart Failure Inclusion Criteria At DC or during hospital stay patient has or had the following: CHF DIAGNOSIS No Discharge Core Measures Meds if any: Prescribed or Continued at Discharge Meds if any: NOT Prescribed or Continued at Discharge Cerebrovascular accident Inclusion Criteria At DC or during hospital stay patient has or had the following: CVA/TIA Diagnosis No Discharge Core Measures Meds if any: Prescribed or Continued at Discharge Meds if any: NOT Prescribed or Continued at Discharge Venous thromboembolism Inclusion Criteria VTE Diagnosis No VTE Type NONE VTE Confirmed by (Test) NONE Discharge Core Measures - Per Current guidelines, there needs to be overlap - treatment for the first 5 days of Warfarin therapy. - If discharged on Warfarin prior to 5 days of - overlap therapy, the patient will need to be - assessed for post discharge needs including - *Post discharge parental anticoagulation - *Warfarin and/or parental anticoagulation education - *Follow up date to check INR post discharge At least 5 days overlap therapy as Inpatient No Meds if any: Prescribed or Continued at Discharge Note: Overlap Therapy is Warfarin and Anticoagulant Meds if any: NOT Prescribed or Continued at Discharge
[2016-09-23] MEDS ORDERED: ACAMPROSATE CA333 M1 PO (15:39)
--- NOTE | 2016-09-26 13:56 | NUR ---
Late entry. Pt was discharged from hospital to his father who, directly brought pt to [facility] in [facility] for Drug Rehab. Pt's father worked with insurance and [facility] to clarify insurance and come to an agreement with cost/ co pays. Sw recieved accpetance from [facility]. Pt had given sw permission to talk with father regarding transport, insurance and care. Sw had limited contact with family ( aware father was working on insurance and transportation) regarding Pt. Sw did not see them in pt room. Sw provided pt with support and encouragement.
== END 2016-09-23 16:39 | DRG 897 ==
LOC: ERH 12:25 → ERHI 20:21 → 2NA 20:21 → ENRESERV 21:15 → ENTRNSPT 22:11 → 2NA 22:30 → CMPTRNSPT 22:43 → 2NA 09-21 06:47
PROVIDERS: Internal Medicine; Physician Assistant Medical; Student in an Organized Health Care Education/Training Program; ADMIT Student in an Organized Health Care Education/Training Program
DX: F10.239 Alcohol dependence with withdrawal, unspecified (principal); D69.6 Thrombocytopenia, unspecified; E87.1 Hypo-osmolality and hyponatremia; F17.200 Nicotine dependence, unspecified, uncomplicated; F12.10 Cannabis abuse, uncomplicated; R74.0 Nonspecific elevation of levels of transaminase and lactic acid dehydrogenase [LDH]; F32.9 Major depressive disorder, single episode, unspecified; F98.8 Other specified behavioral and emotional disorders with onset usually occurring in childhood and adolescence; E83.42 Hypomagnesemia; M54.5 Low back pain
CPT/HCPCS: 2NASP; 36415; 80307; 81001; 82436; 87040; 87086; 87389; 93005; 93010; 96374; G0480; J1650; J3101; J3490; J7060